=== PATIENT | female | born 1930 | race Caucasian/White ===

== ENCOUNTER 2017-01-10 01:46 | Emergency (ER) | payer OTHER, MEDICAID ==
[2017-01-10] MEDS ORDERED: Lactated Ringers 1,000 ML IV ONE ×2 (02:20→03:53)
[2017-01-10] MEDS ORDERED: Ondansetron 4 MG/2 ML SDV IVPUSH ONE (02:20)
--- NOTE | 2017-01-10 02:39 | EDM.PDOC ---
ED HPI GI/ABDOMINAL - General Chief Complaint: Gastrointestinal Problem Stated Complaint: VOMITING DIARRHEA Time Seen by Provider: 01/10/17 02:10 Source of Information: Reports: Patient History Limitations: Reports: No limitations - History of Present Illness INITIAL COMMENTS - FREE TEXT/NARRATIVE: This is an 86-year-old female. Onset yesterday morning with nausea vomiting and diarrhea. She says she not able to keep much fluids down and she has not been eating. Her daughter came to stay with her apparently she had 4 episodes of vomiting since about 6 PM and several episodes of diarrhea. The patient is insulin-dependent diabetic and this evening her blood sugar around 70 so her daughter gave her some crackers and some juice that she was able to keep down to bring her blood sugar back up. The patient has no history of eating any bad food no particular salads though she has had some eggs but they seem to be okay. She has not been around anyone who has been having nausea vomiting or diarrhea. The patient can only add to this history at this time. No fevers been noted no sore throat no ear pain no cough or congestion. - Related Data Allergies/ADRs: Allergies Allergy/AdvReac Type Severity Reaction Status Date / Time atorvastatin Allergy Cannot Verified 01/10/17 01:58 Remember Home Meds: Home Meds Acetaminophen [Tylenol Extra Strength] 1,000 mg PO BID 07/27/14 [History] Clopidogrel Bisulfate [Clopidogrel] 75 mg PO DAILY 07/27/14 [History] Diflunisal 500 mg PO TID 07/27/14 [History] Docusate Sodium [Doc-Q-Lace] 100 mg PO DAILY 07/27/14 [History] Donepezil [Aricept] 10 mg PO DAILY 07/27/14 [History] Furosemide 60 mg PO DAILY 07/27/14 [History] Gabapentin 300 mg PO TID 07/27/14 [History] Insulin Aspart [Novolog Flexpen] 3 dose SQ TIDMEALS PRN 07/27/14 [History] Isosorbide Mononitrate [Imdur] 60 mg PO DAILY 07/27/14 [History] Lisinopril [Prinivil] 20 mg PO DAILY 07/27/14 [History] Pantoprazole [ProTONIX] 40 mg PO DAILY 07/27/14 [History] Potassium Chloride [Klor-Con 10] 10 meq PO BID 07/27/14 [History] Primidone 100 mg PO TID 07/27/14 [History] Simvastatin 40 mg PO BEDTIME 07/27/14 [History] Aspirin [Adult Low Dose Aspirin EC] 81 mg PO Q2D 03/26/15 [History] Calcium Carbonate 600 mg PO BID 03/26/15 [History] Insulin Detemir [Levemir] 28 unit SUBCUT BID 01/10/17 [History] Ondansetron [Zofran ODT] 4 mg PO Q6H PRN #15 tab.dis 01/10/17 [Rx] Past Medical History HEENT History: Reports: Impaired vision Other HEENT History: wears eyeglasses Cardiovascular History: Reports: High cholesterol, Hypertension Respiratory History: Reports: Bronchitis, recurrent Gastrointestinal History: Reports: Hiatal hernia Genitourinary History: Reports: UTI, recurrent 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: Musculoskeletal History: Reports: Arthritis, Osteoporosis Neurological History: Reports: CVA, Head trauma Endocrine/Metabolic History: Reports: Diabetes, type II, IDDM - Infectious Disease History Infectious Disease History: Reports: Chicken pox, Measles, Mumps, Shingles - Past Surgical History HEENT Surgical History: Reports: Cataract surgery Cardiovascular Surgical History: Reports: Coronary artery bypass, Other (see below) Other Cardiovascular Surgeries/Procedures: multiple angioplasties GI Surgical History: Reports: Appendectomy Female Surgical History: Reports: Hysterectomy Social & Family History - Family History Family Medical History: Unobtainable - Tobacco Use Smoking Status *Q: Never Smoker Second Hand Smoke Exposure: No - Caffeine Use Caffeine Use: Reports: Coffee - Alcohol Use Days Per Week of Alcohol Use: 0 Number of Drinks Per Day: 0 Total Drinks Per Week: 0 - Recreational Drug Use Recreational Drug Use: No Drug Use in Last 12 Months: No ED ROS GENERAL - Review of Systems Review Of Systems: See Below Constitutional: Reports: weakness. Denies: fever, chills HEENT: Reports: No symptoms Respiratory: Denies: Shortness of Breath, Cough Cardiovascular: Reports: No symptoms Endocrine: Reports: no symptoms GI/Abdominal: Reports: Diarrhea, Nausea, Vomiting. Denies: Abdominal pain : Denies: dysuria, frequency Musculoskeletal: Reports: no symptoms Skin: Reports: no symptoms Neurological: Reports: No Symptoms Psychiatric: Reports: No symptoms Hematologic/Lymphatic: Reports: no symptoms ED EXAM, GI/ABD - Physical Exam Exam: See Below Exam Limited By: No limitations General Appearance: alert, WD/WN, no apparent distress Eyes: bilateral: normal appearance Ears: normal external exam, normal canal, normal TMs Nose: normal inspection Throat/Mouth: Normal lips, Normal oropharynx, Normal voice, No airway compromise , Other (Moist mucous membranes) Head: normocephalic Neck: supple Respiratory/Chest: no respiratory distress, lungs clear, normal breath sounds Cardiovascular: regular rate, rhythm, no murmur GI/Abdominal: normal bowel sounds, soft, tenderness. No: distention, guarding, rebound, rigidity, McBurney's sign, Willingham's sign Back Exam: full range of motion Extremities: normal inspection, normal range of motion Neurological: alert, oriented Psychiatric: normal affect, normal mood Skin Exam: Warm, Dry Course - Vital Signs Last Recorded V/S: Last Vital Signs Temp 98.7 F 01/10/17 01:55 Pulse 75 01/10/17 01:55 Resp 17 01/10/17 01:55 BP 159/48 H 01/10/17 01:55 Pulse Ox 95 01/10/17 01:55 - Orders/Labs/Meds Labs: Laboratory Tests 01/10/17 01/10/17 01/10/17 Range/Units 01:55 01:55 02:02 WBC 11.53 H (3.98-10.04) K/mm3 RBC 4.28 (3.98-5.22) M/mm3 Hgb 13.8 (11.2-15.7) gm/L Hct 42.4 (34.1-44.9) % MCV 99.1 H (79.4-94.8) fl MCH 32.2 (25.6-32.2) pg MCHC 32.5 (32.2-35.5) g/dl RDW Std Deviation 53.1 H (36.4-46.3) fL Plt Count 216 (182-369) K/mm3 MPV 12.5 H (9.4-12.3) fl Neut % (Auto) 79.2 H (34.0-71.1) % Lymph % (Auto) 8.7 L (19.3-51.7) % [place] % (Auto) 11.4 (4.7-12.5) % Eos % (Auto) 0.3 L (0.7-5.8) Baso % (Auto) 0.3 (0.1-1.2) % Neut # (Auto) 9.14 H (1.56-6.13) K/mm3 Lymph # (Auto) 1.00 L (1.18-3.74) K/mm3 [place] # (Auto) 1.31 H (0.24-0.36) K/mm3 Eos # (Auto) 0.03 L (0.04-0.36) K/mm3 Baso # (Auto) 0.04 (0.01-0.08) K/mm3 Manual Slide Review Normal smear Sodium 140 (136-145) mEq/L Potassium 4.2 (3.5-5.1) mEq/L Chloride 103 (98-107) mEq/L Carbon Dioxide 23 (21-32) mEq/L Anion Gap 18.2 H (5-15) BUN 45 H (7-18) mg/dL Creatinine 1.8 H (0.55-1.02) mg/dL Est Cr Clr Drug Dosing TNP Estimated GFR (MDRD) 27 (>60) mL/min BUN/Creatinine Ratio 25.0 H (14-18) Glucose 111 (83-115) mg/dL POC Glucose 116 H (83-110) mg/dL Calcium 9.0 (8.5-10.1) mg/dL Total Bilirubin 0.3 (0.2-1.0) mg/dL AST 33 (15-37) U/L ALT 21 (14-59) U/L Alkaline Phosphatase 175 H (46-116) U/L Total Protein 7.9 (6.4-8.2) g/dl Albumin 3.4 (3.4-5.0) g/dl Globulin 4.5 gm/dL Albumin/Globulin Ratio 0.8 L (1-2) Meds: Medications Discontinued Medications Generic Name Dose Route Start Last Admin Trade Name Freq PRN Reason Stop Dose Admin Lactated Ringer's 1,000 mls @ 999 mls/hr 01/10/17 02:20 01/10/17 02:28 Ringers, Lactated IV 01/10/17 03:20 999 mls/hr .BOLUS ONE Administration Lactated Ringer's 1,000 mls @ 999 mls/hr 01/10/17 03:53 01/10/17 04:01 Ringers, Lactated IV 01/10/17 04:53 999 mls/hr .BOLUS ONE Administration Ondansetron HCl 4 mg 01/10/17 02:20 01/10/17 02:28 Zofran IVPUSH 01/10/17 02:21 4 mg ONETIME ONE Administration - Re-Assessments/Exams Free Text/Narrative Re-Assessment/Exam: 01/10/17 05:05 She is feeling much better after 2 L of fluids and she sleeping peacefully. She was not able to give us a stool sample in the ER. Spoke to her daughter about lots of fluids and a bland diet taking probiotics will give her a prescription for some Zofran. Departure - Departure Time of Disposition: 05:05 Disposition: Home, Self-Care 01 Condition: good Clinical Impression: Abdominal discomfort, Dehydration, Renal insufficiency Nausea & vomiting Qualifiers: Vomiting type: unspecified Vomiting Intractability: non-intractable Qualified Code(s): R11.2 - Nausea with vomiting, unspecified Diarrhea Qualifiers: Diarrhea type: unspecified type Qualified Code(s): R19.7 - Diarrhea, unspecified Prescriptions: Ondansetron [Zofran ODT] 4 mg PO Q6H PRN #15 tab.dis PRN Reason: Nausea Referrals: Stewart Blevins MD [Primary Care Provider] - Forms: ED Department Discharge Additional Instructions: Watch her blood sugars really carefully since she is not eating she needs to cut back on the amount of insulin that she is using otherwise her blood sugar will drop, stay on liquids only for the next 24 hours with no caffeine, did probiotics just [id number] take one capsule 3 times a day and consider getting some yogurt with active cultures as well and eat that 3 times a day, on Wednesday she needs to be on a bland diet like crackers bananas things very easy to digest, she should have no vegetables and no meats for at least 3-4 days, followup with her family doctor this week for recheck, return to the ER if her symptoms worsen
[2017-01-10 10:12] VITALS: BP 159/48
== END 2017-01-10 05:30 | disposition home or self-care (01) ==
LOC: JD.ED 01:46
DX: N28.9 Disorder of kidney and ureter, unspecified (principal); E86.0 Dehydration; R10.9 Unspecified abdominal pain; I10 Essential (primary) hypertension; E78.00 Pure hypercholesterolemia, unspecified; E11.9 Type 2 diabetes mellitus without complications; Z88.8 Allergy status to other drugs, medicaments and biological substances; Z79.899 Other long term (current) drug therapy; Z90.710 Acquired absence of both cervix and uterus
CPT/HCPCS: 36415; 80053; 82962; 85025; 96361; 96374; 99284; J2405; J7120

== ENCOUNTER 2017-08-11 15:23 | Inpatient (IN) | payer OTHER ==
[2017-08-11] MEDS ORDERED: Sodium Chloride 0.9% 10 ML Syringe FLUSH PRN (15:42)
[2017-08-11] MEDS ORDERED: Sodium Chloride 0.9% 1,000 ML IV STA (15:42)
--- NOTE | 2017-08-11 16:13 | CT ---
Head CT Technique: Multiple axial sections through the brain were obtained. Intravenous contrast was not utilized. Comparison: Prior head CT exam of 01/14/16. Findings: Old infarct is noted within the left posterior frontal and temporal regions. Smaller infarct is noted within the posterior right frontal region. Diminished density is noted within the periventricular and subcortical white matter which is compatible with small vessel ischemic demyelination change. Additional old infarct is seen within the inferior left temporal region. Old lacunar infarct is noted within the right cerebellar hemisphere. No evidence of intracranial hemorrhage. No midline shift or mass effect is seen. Basal ganglia calcification is noted. Atherosclerotic calcification is seen within the vertebral vessels. Visualized sinuses are clear. No acute calvarial abnormality is seen. Impression: 1. Old infarcts as described above. Generalized atrophy and other senescent change. 2. Nothing acute is definitely appreciated on noncontrast head CT exam. Diagnostic code #3
[2017-08-11] MEDS ORDERED: Levofloxacin/Dextrose 5%-Water 500 MG in Premix Bag 1 BAG IV ONE (17:32)
--- NOTE | 2017-08-11 19:45 | EDM.PDOC ---
ED HPI GENERAL MEDICAL PROBLEM - General Chief Complaint: General Stated Complaint: [facility] Time Seen by Provider: 08/11/17 15:34 Source of Information: Reports: Patient, Family, Snf Records History Limitations: Reports: Altered Mental Status - History of Present Illness INITIAL COMMENTS - FREE TEXT/NARRATIVE: The patient has had altered mental status for about 1 week. She had some lab work done at the clinic and her creatinine was elevated. They sent her here for further work up. She denies fever, chills, cough, congestion, chest pain, shortness of breath, abdominal pain, nausea or vomiting. She has no dysuria. She does admit to being very tired lately. She is on a new medication for memory that is a patch. PACE thought that may be to much. Onset: Gradual Duration: Week(s): (1) Severity: Moderate Improves with: Reports: None Worsens with: Reports: None Associated Symptoms: Reports: Confusion. Denies: Chest Pain, Cough, Fever/ Chills, Headaches, Nausea/Vomiting, Seizure, Shortness of Breath - Related Data Allergies Allergy/AdvReac Type Severity Reaction Status Date / Time atorvastatin Allergy Cannot Verified 08/11/17 19:15 Remember propranolol Allergy Cannot Verified 08/11/17 16:30 Remember topiramate [From Topamax] Allergy Cannot Verified 08/11/17 16:30 Remember Home Meds: Home Meds Acetaminophen 1,000 mg PO BID 08/11/17 [History] Aspirin [[place] Aspirin] 81 mg PO DAILY 08/11/17 [History] Ca Carbonate/Vitamin D3/Vit K [Calcium + D Soft Chewable Tab] 1 tab PO BID 08/11 [History] Clopidogrel [Plavix] 75 mg PO DAILY 08/11/17 [History] Diflunisal 500 mg PO TID 08/11/17 [History] Docusate Sodium [Colace] 100 mg PO QPM 08/11/17 [History] Furosemide 20 mg PO QAM 08/11/17 [History] Furosemide 40 mg PO QAM 08/11/17 [History] Gabapentin [Neurontin] 300 mg PO TID 08/11/17 [History] Insulin Aspart [Novolog Flexpen] 4 - 10 units SUBCUT TID 08/11/17 [History] Insulin Aspart [Novolog Flexpen] 5 units SUBCUT TID 08/11/17 [History] Insulin Detemir [Levemir Flextouch] 14 units SUBCUT QPM 08/11/17 [History] Insulin Detemir [Levemir Flextouch] 26 units SUBCUT QAM 08/11/17 [History] Isosorbide Mononitrate [Imdur] 60 mg PO DAILY 08/11/17 [History] Lisinopril 20 mg PO DAILY 08/11/17 [History] Menthol [Zim's Max-Freeze] 1 applic TOP BID PRN 08/11/17 [History] Ondansetron [Zofran ODT] 4 mg PO Q6H PRN 08/11/17 [History] Pantoprazole [ProTONIX] 40 mg PO QAM 08/11/17 [History] Potassium Chloride 10 meq PO BID 08/11/17 [History] Primidone [Mysoline] 100 mg PO TID 08/11/17 [History] Rivastigmine [Exelon] 1 patch TRDERM DAILY 08/11/17 [History] Sennosides/Docusate Sodium [Senna-S] 2 tab PO BID PRN 08/11/17 [History] Simvastatin [Zocor] 40 mg PO QPM 08/11/17 [History] Past Medical History HEENT History: Reports: Impaired Vision Other HEENT History: wears eyeglasses Cardiovascular History: Reports: High Cholesterol, Hypertension Respiratory History: Reports: Bronchitis, Recurrent Gastrointestinal History: Reports: Hiatal Hernia Genitourinary History: Reports: UTI, Recurrent 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: Musculoskeletal History: Reports: Arthritis, Osteoporosis Neurological History: Reports: CVA, Head Trauma Endocrine/Metabolic History: Reports: Diabetes, Type II, IDDM - Infectious Disease History Infectious Disease History: Reports: Chicken Pox, Measles, Mumps, Shingles - Past Surgical History HEENT Surgical History: Reports: Cataract Surgery Cardiovascular Surgical History: Reports: Coronary Artery Bypass, Other (See Below) Social & Family History - Family History Family Medical History: Unobtainable - Tobacco Use Smoking Status *Q: Unknown Ever Smoked Second Hand Smoke Exposure: No - Caffeine Use Caffeine Use: Reports: Coffee - Alcohol Use Days Per Week of Alcohol Use: 0 Number of Drinks Per Day: 0 Total Drinks Per Week: 0 - Recreational Drug Use Recreational Drug Use: No Drug Use in Last 12 Months: No ED ROS GENERAL - Review of Systems Review Of Systems: See Below Constitutional: Reports: Malaise, Weakness, Fatigue. Denies: Fever, Chills HEENT: Reports: No Symptoms Respiratory: Reports: No Symptoms Cardiovascular: Reports: No Symptoms Endocrine: Reports: No Symptoms GI/Abdominal: Reports: No Symptoms : Reports: No Symptoms Musculoskeletal: Reports: No Symptoms Skin: Reports: No Symptoms Neurological: Reports: Confusion ED EXAM, GENERAL - Physical Exam Exam: See Below Exam Limited By: No Limitations General Appearance: Other (Sleepy but she will respond to my questions) Ears: Normal External Exam Nose: Normal Inspection Head: Atraumatic, Normocephalic Neck: Normal Inspection Respiratory/Chest: No Respiratory Distress, Lungs Clear, Normal Breath Sounds Cardiovascular: Regular Rate, Rhythm, No Edema, No Murmur GI/Abdominal: Soft, Non-Tender, No Organomegaly, No Mass Back Exam: Normal Inspection Extremities: Normal Inspection Neurological: Alert, Oriented, No Motor/Sensory Deficits Skin Exam: Warm, Dry EKG INTERPRETATION EKG Date: 08/11/17 Time: 15:58 Rhythm: NSR Rate (Beats/Min): 72 [place]: Normal P-Wave: Present QRS: Normal ST-T: Normal QT: Normal Course - Vital Signs Last Recorded V/S: Last Vital Signs Temp 98.1 F 08/11/17 15:33 Pulse 71 08/11/17 15:33 Resp 20 08/11/17 15:33 BP 116/39 L 08/11/17 15:33 Pulse Ox 95 08/11/17 15:33 - Orders/Labs/Meds Orders: Active Orders 24 hr Category Date Time Status EKG Documentation Completion [RC] ASDIRECTED Care 08/11/17 15:44 Active Peripheral IV Care [RC] . DIRECTED Care 08/11/17 15:43 Active CULTURE BLOOD [BC] Stat Lab 08/11/17 18:06 Received CULTURE BLOOD [BC] Stat Lab 08/11/17 18:36 Received CULTURE URINE [RM] Stat Lab 08/11/17 16:20 Received Sodium Chloride 0.9% [Saline Flush] Med 08/11/17 15:42 Active 10 ml FLUSH ASDIRECTED PRN Blood Culture x2 Reflex Set [OM.PC] Stat Oth 08/11/17 17:31 Ordered Peripheral IV Insertion Adult [OM.PC] Stat Oth 08/11/17 15:42 Ordered EKG 12 Lead [EK] Stat Ther 08/11/17 15:44 Ordered Medication Orders Sodium Chloride (Saline Flush) 10 ml FLUSH ASDIRECTED PRN PRN Reason: Keep Vein Open Last Admin: 08/11/17 15:59 Dose: 10 ml Labs: Laboratory Tests 08/11/17 08/11/17 08/11/17 Range/Units 15:45 15:45 16:20 WBC 19.91 H (3.98-10.04) K/mm3 RBC 3.55 L (3.98-5.22) M/mm3 Hgb 11.9 (11.2-15.7) gm/L Hct 36.7 (34.1-44.9) % MCV 103.4 H (79.4-94.8) fl MCH 33.5 H (25.6-32.2) pg MCHC 32.4 (32.2-35.5) g/dl RDW Std Deviation 51.4 H (36.4-46.3) fL Plt Count 330 (182-369) K/mm3 MPV 12.8 H (9.4-12.3) fl Neut % (Auto) 74.4 H (34.0-71.1) % Lymph % (Auto) 14.8 L (19.3-51.7) % [place] % (Auto) 9.7 (4.7-12.5) % Eos % (Auto) 0.5 L (0.7-5.8) Baso % (Auto) 0.2 (0.1-1.2) % Neut # (Auto) 14.80 H (1.56-6.13) K/mm3 Lymph # (Auto) 2.95 (1.18-3.74) K/mm3 [place] # (Auto) 1.94 H (0.24-0.36) K/mm3 Eos # (Auto) 0.10 (0.04-0.36) K/mm3 Baso # (Auto) 0.04 (0.01-0.08) K/mm3 Manual Slide Review Normal smear Sodium 140 (136-145) mEq/L Potassium 5.0 (3.5-5.1) mEq/L Chloride 103 (98-107) mEq/L Carbon Dioxide 25 (21-32) mEq/L Anion Gap 17.0 H (5-15) BUN 77 H (7-18) mg/dL Creatinine 2.7 H (0.55-1.02) mg/dL Est Cr Clr Drug Dosing 11.61 mL/min Estimated GFR (MDRD) 17 (>60) mL/min BUN/Creatinine Ratio 28.5 H (14-18) Glucose 195 H (83-115) mg/dL Lactic Acid (0.4-2.0) mmol/L Calcium 8.3 L (8.5-10.1) mg/dL Total Bilirubin 0.2 (0.2-1.0) mg/dL AST 22 (15-37) U/L ALT 19 (14-59) U/L Alkaline Phosphatase 72 (46-116) U/L Troponin I < 0.017 (0.00-0.056) ng/mL Total Protein 7.7 (6.4-8.2) g/dl Albumin 2.2 L (3.4-5.0) g/dl Globulin 5.5 gm/dL Albumin/Globulin Ratio 0.4 L (1-2) Urine Color Yellow (Yellow) Urine Appearance Clear (Clear) Urine pH 5.5 (5.0-8.0) Ur Specific [place] 1.015 (1.005-1.030) Urine Protein 1+ H (Negative) Urine Glucose (UA) Negative (Negative) Urine Ketones Negative (Negative) Urine Occult Blood 2+ H (Negative) Urine Nitrite Positive H (Negative) Urine Bilirubin Negative (Negative) Urine Urobilinogen 0.2 (0.2-1.0) Ur Leukocyte Esterase 2+ H (Negative) Urine RBC 0-5 (0-5) /hpf Urine WBC 40-50 H (0-5) /hpf Urine WBC Clumps Few (NOT SEEN) /hpf Ur Epithelial Cells 0-5 (0-5) /hpf Urine Bacteria Many H (FEW) /hpf Hyaline Casts 0-5 (0-5) /lpf Urine Mucus Not seen (FEW) /hpf 08/11/17 Range/Units 18:06 WBC (3.98-10.04) K/mm3 RBC (3.98-5.22) M/mm3 Hgb (11.2-15.7) gm/L Hct (34.1-44.9) % MCV (79.4-94.8) fl MCH (25.6-32.2) pg MCHC (32.2-35.5) g/dl RDW Std Deviation (36.4-46.3) fL Plt Count (182-369) K/mm3 MPV (9.4-12.3) fl Neut % (Auto) (34.0-71.1) % Lymph % (Auto) (19.3-51.7) % [place] % (Auto) (4.7-12.5) % Eos % (Auto) (0.7-5.8) Baso % (Auto) (0.1-1.2) % Neut # (Auto) (1.56-6.13) K/mm3 Lymph # (Auto) (1.18-3.74) K/mm3 [place] # (Auto) (0.24-0.36) K/mm3 Eos # (Auto) (0.04-0.36) K/mm3 Baso # (Auto) (0.01-0.08) K/mm3 Manual Slide Review Sodium (136-145) mEq/L Potassium (3.5-5.1) mEq/L Chloride (98-107) mEq/L Carbon Dioxide (21-32) mEq/L Anion Gap (5-15) BUN (7-18) mg/dL Creatinine (0.55-1.02) mg/dL Est Cr Clr Drug Dosing mL/min Estimated GFR (MDRD) (>60) mL/min BUN/Creatinine Ratio (14-18) Glucose (83-115) mg/dL Lactic Acid 1.4 (0.4-2.0) mmol/L Calcium (8.5-10.1) mg/dL Total Bilirubin (0.2-1.0) mg/dL AST (15-37) U/L ALT (14-59) U/L Alkaline Phosphatase (46-116) U/L Troponin I (0.00-0.056) ng/mL Total Protein (6.4-8.2) g/dl Albumin (3.4-5.0) g/dl Globulin gm/dL Albumin/Globulin Ratio (1-2) Urine Color (Yellow) Urine Appearance (Clear) Urine pH (5.0-8.0) Ur Specific [place] (1.005-1.030) Urine Protein (Negative) Urine Glucose (UA) (Negative) Urine Ketones (Negative) Urine Occult Blood (Negative) Urine Nitrite (Negative) Urine Bilirubin (Negative) Urine Urobilinogen (0.2-1.0) Ur Leukocyte Esterase (Negative) Urine RBC (0-5) /hpf Urine WBC (0-5) /hpf Urine WBC Clumps (NOT SEEN) /hpf Ur Epithelial Cells (0-5) /hpf Urine Bacteria (FEW) /hpf Hyaline Casts (0-5) /lpf Urine Mucus (FEW) /hpf Meds: Medications Generic Name Dose Route Start Last Admin Trade Name Freq PRN Reason Stop Dose Admin Sodium Chloride 10 ml 08/11/17 15:42 08/11/17 15:59 Saline Flush FLUSH 10 ml ASDIRECTED PRN Administration Keep Vein Open Discontinued Medications Generic Name Dose Route Start Last Admin Trade Name Freq PRN Reason Stop Dose Admin Sodium Chloride 1,000 mls @ 1,000 mls/hr 08/11/17 15:42 08/11/17 15:58 Normal Saline IV 08/11/17 16:41 1,000 mls/hr .BOLUS STA Administration Levofloxacin/Dextrose 500 mg/ 100 mls @ 100 mls/hr 08/11/17 17:32 08/11/17 18 :14 Premix IV 08/11/17 18:31 100 mls/hr ONETIME ONE Administration Sodium Chloride 1,600 mls @ 1,000 mls/hr 08/11/17 17:32 08/11/17 17:36 Normal Saline IV 08/11/17 19:07 1,000 mls/hr ONETIME ONE Administration - Re-Assessments/Exams Free Text/Narrative Re-Assessment/Exam: 08/11/17 19:41 I ordered an IV NS 500mL bolus, labs, CT of her head, UA and EKG. Her EKG shows NSR with no acute changes. The CT of her head shows old infarcts. Generalized atrophy and other senescent change. Nothing acute is definitely appreciated on noncontrast head CT. Her WBC was elevated at 19.91. Her creatinine was elevated at 2.7. Her baseline from old records looks like 1.5 to 1.7. Her BUN was 77 and GFR was low at 17. Her glucose was elevated at 195. Her lactic acid was 1.4 and normal. Her troponin is negative. Her UA shows a UTI. I ordered a urine culture and blood cultures. She is septic from the UTI. I ordered an aditional 1,600mls to bring her over 30mLs per KG for a bolus. I feel she needs to be admitted. I called Dr Mckeon and she agreed to the admission. Departure - Departure Time of Disposition: 19:45 Disposition: Admitted As Inpatient 65 Condition: Serious Clinical Impression: Renal insufficiency, Dehydration UTI (urinary tract infection) Qualifiers: Urinary tract infection type: acute cystitis Hematuria presence: without hematuria Qualified Code(s): N30.00 - Acute cystitis without hematuria Sepsis Qualifiers: Sepsis type: sepsis due to unspecified organism Qualified Code(s): A41.9 - Sepsis, unspecified organism Altered mental status Qualifiers: Altered mental status type: somnolence Qualified Code(s): R40.0 - Somnolence - Discharge Information - My Orders Last 24 Hours: My Active Orders 08/11/17 15:42 Sodium Chloride 0.9% [Saline Flush] 10 ml FLUSH ASDIRECTED PRN Peripheral IV Insertion Adult [OM.PC] Stat 08/11/17 15:43 Peripheral IV Care [RC] . DIRECTED 08/11/17 15:44 EKG Documentation Completion [RC] ASDIRECTED EKG 12 Lead [EK] Stat 08/11/17 16:20 CULTURE URINE [RM] Stat 08/11/17 17:31 Blood Culture x2 Reflex Set [OM.PC] Stat 08/11/17 18:06 CULTURE BLOOD [BC] Stat 08/11/17 18:36 CULTURE BLOOD [BC] Stat - Assessment/Plan Last 24 Hours: My Active Orders 08/11/17 15:42 Sodium Chloride 0.9% [Saline Flush] 10 ml FLUSH ASDIRECTED PRN Peripheral IV Insertion Adult [OM.PC] Stat 08/11/17 15:43 Peripheral IV Care [RC] . DIRECTED 08/11/17 15:44 EKG Documentation Completion [RC] ASDIRECTED EKG 12 Lead [EK] Stat 08/11/17 16:20 CULTURE URINE [RM] Stat 08/11/17 17:31 Blood Culture x2 Reflex Set [OM.PC] Stat 08/11/17 18:06 CULTURE BLOOD [BC] Stat 08/11/17 18:36 CULTURE BLOOD [BC] Stat
[2017-08-11] MEDS ORDERED: Ondansetron 4 MG Tab.DIS PO PRN (21:22)
[2017-08-11] MEDS ORDERED: Ondansetron 4 MG/2 ML SDV IV PRN (21:22)
[2017-08-11] MEDS ORDERED: Acetaminophen 325 MG Tab PO PRN (21:22)
[2017-08-11] MEDS ORDERED: Docusate Sodium 100 MG Cap PO PRN (21:22)
[2017-08-11] MEDS ORDERED: Bisacodyl 5 MG Tab PO PRN (21:22)
[2017-08-11] MEDS ORDERED: 50% Dextrose in Water 50 ML Syringe IVPUSH PRN (21:34)
--- NOTE | 2017-08-11 21:44 | PCM.HP ---
<Sim Hartman - Last Filed: 08/11/17 22:05> H&P History of Present Illness - General Date of Service: 08/11/17 Admit Problem/Dx: Admission Diagnosis/Problem Admission Diagnosis/Problem Sepsis Source of Information: Patient, Old Records, Provider, RN, RN Notes Reviewed History Limitations: Reports: No Limitations - History of Present Illness Initial Comments - Free Text/Narative: Roma Aviles is an 86 yo female who presented to our ED today with complaints of an altered mental status for about one week. Lab work was performed in the clinic and her creatinine was found to be elevated. A 2 to us for further workup. She denies fever, chills, cough, congestion, chest pain, shortness of breath, without pain, nausea, or vomiting. She has no dysuria. She admits to being very tired lately. She is on a new medication patch for memory. Her home services [facility] quality control representative thought that maybe too much of a dose. On presentation to the ED she was afebrile at 98.1. Pulse was 71. Respirations 20. Blood pressure 116/39. Pulse ox 95%. IV of 500 mils NS bolus was given. EKG was performed and interpreted by the ED provider as NSR with no acute changes. Labs were obtained: W CBC elevated at 19.91. Hemoglobin 11.9. Hematocrit 36.7. She is macrocytic. Platelets normal at 330, 000. Neutrophils elevated at 74.4%. Sodium 140. Potassium 5.0. Chloride 103. Carbon dioxide 25. Anion gap is quite high at 17. BUN is very high at 77. Creatinine is high at 2.7. EGFR 17. Glucose is high at 195. Lactic acid is 1.4. Calcium is low at 8.3. Bilirubin 0.2. Liver enzymes are good with AST at 22, ALT at 19, and alkaline phosphatase at 72. Troponin is negative at less than 0.017. Total protein 7.7. Albumin is low at 2.2. UA shows 1+ protein, 2+ occult blood, positive urine nitrite, 2+ leukocyte esterase, 40-50 WBCs, and many urine bacteria. Urine culture and blood culture pending. Head CT was obtained and interpreted by Dr. De Luna as old infarcts as described above. Generalized atrophy and other senescent changes. Nothing acute is definitely appreciated on noncontrast head CT exam. The ED provider did look old records and determine her creatinine baseline is 1.5-1.7. She carries a history of impaired vision, HLD, HTN, recurrent bronchitis, recurrent UTI, osteoporosis, arthritis, CVA,2 DM on long-term insulin. She is also reported to have had a coronary artery bypass. CODE STATUS is DNR/DNI. Her primary care provider is Dr. Blevins at [facility] in [place]. - Related Data Allergies/Adverse Reactions: Allergies Allergy/AdvReac Type Severity Reaction Status Date / Time atorvastatin Allergy Cannot Verified 08/11/17 19:15 Remember propranolol Allergy Cannot Verified 08/11/17 16:30 Remember topiramate [From Topamax] Allergy Cannot Verified 08/11/17 16:30 Remember Home Medications: Home Meds Acetaminophen 1,000 mg PO BID 08/11/17 [History] Aspirin [Garrett Aspirin] 81 mg PO DAILY 08/11/17 [History] Ca Carbonate/Vitamin D3/Vit K [Calcium + D Soft Chewable Tab] 1 tab PO BID 08/11 [History] Clopidogrel [Plavix] 75 mg PO DAILY 08/11/17 [History] Diflunisal 500 mg PO TID 08/11/17 [History] Docusate Sodium [Colace] 100 mg PO QPM 08/11/17 [History] Furosemide 20 mg PO QAM 08/11/17 [History] Furosemide 40 mg PO QAM 08/11/17 [History] Gabapentin [Neurontin] 300 mg PO TID 08/11/17 [History] Insulin Aspart [Novolog Flexpen] 4 - 10 units SUBCUT TID 08/11/17 [History] Insulin Aspart [Novolog Flexpen] 5 units SUBCUT TID 08/11/17 [History] Insulin Detemir [Levemir Flextouch] 14 units SUBCUT QPM 08/11/17 [History] Insulin Detemir [Levemir Flextouch] 26 units SUBCUT QAM 08/11/17 [History] Isosorbide Mononitrate [Imdur] 60 mg PO DAILY 08/11/17 [History] Lisinopril 20 mg PO DAILY 08/11/17 [History] Menthol [Zim's Max-Freeze] 1 applic TOP BID PRN 08/11/17 [History] Ondansetron [Zofran ODT] 4 mg PO Q6H PRN 08/11/17 [History] Pantoprazole [ProTONIX] 40 mg PO QAM 08/11/17 [History] Potassium Chloride 10 meq PO BID 08/11/17 [History] Primidone [Mysoline] 100 mg PO TID 08/11/17 [History] Rivastigmine [Exelon] 1 patch TRDERM DAILY 08/11/17 [History] Sennosides/Docusate Sodium [Senna-S] 2 tab PO BID PRN 08/11/17 [History] Simvastatin [Zocor] 40 mg PO QPM 08/11/17 [History] Past Medical History HEENT History: Reports: Impaired Vision Other HEENT History: wears eyeglasses Cardiovascular History: Reports: High Cholesterol, Hypertension Respiratory History: Reports: Bronchitis, Recurrent Gastrointestinal History: Reports: Hiatal Hernia Genitourinary History: Reports: UTI, 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: Musculoskeletal History: Reports: Arthritis, Osteoporosis Neurological History: Reports: CVA, Head Trauma Endocrine/Metabolic History: Reports: Diabetes, Type II, IDDM - Infectious Disease History Infectious Disease History: Reports: Chicken Pox, Measles, Mumps, Shingles - Past Surgical History HEENT Surgical History: Reports: Cataract Surgery Cardiovascular Surgical History: Reports: Coronary Artery Bypass, Other (See Below) Social & Family History - Family History Family Medical History: Unobtainable - Tobacco Use Smoking Status *Q: Unknown Ever Smoked Second Hand Smoke Exposure: No - Caffeine Use Caffeine Use: Reports: Coffee - Alcohol Use Days Per Week of Alcohol Use: 0 Number of Drinks Per Day: 0 Total Drinks Per Week: 0 - Recreational Drug Use Recreational Drug Use: No Drug Use in Last 12 Months: No H&P Review of Systems - Review of Systems: Review Of Systems: See Below General: Reports: No Symptoms, Malaise, Weakness, Fatigue. Denies: Fever, Chills, Night Sweats, Diaphoresis, Decreased Appetite HEENT: Reports: No Symptoms. Denies: Ear Pain, Eye Pain, Headaches, Sore Throat Pulmonary: Reports: No Symptoms. Denies: Shortness of Breath, Wheezing, Pleuritic Chest Pain, Cough, Sputum Cardiovascular: Reports: No Symptoms. Denies: Chest Pain, Palpitations, Dyspnea on Exertion, Lightheadedness Gastrointestinal: Reports: No Symptoms. Denies: Abdominal Pain, Constipation, Diarrhea, Nausea, Vomiting Genitourinary: Reports: No Symptoms. Denies: Dysuria, Frequency, Burning, Pain , Urgency Musculoskeletal: Reports: No Symptoms Skin: Reports: No Symptoms Psychiatric: Reports: Confusion Neurological: Reports: Confusion, Weakness. Denies: No Symptoms, Dizziness, Headache, Numbness, Tingling Hematologic/Lymphatic: Reports: No Symptoms Immunologic: Reports: No Symptoms Exam - Exam Exam: See Below - Vital Signs Vital Signs: Last Vital Signs Temp 99.1 F 08/11/17 20:36 Pulse 82 08/11/17 20:36 Resp 20 08/11/17 15:33 BP 121/79 08/11/17 20:36 Pulse Ox 96 08/11/17 20:36 Weight: 68.039 kg - Exam Quality Assessment: DVT Prophylaxis General: Alert, Cooperative, Other (mild confusion). No: Mild Distress HEENT: Conjunctiva Clear, EACs Clear, EOMI, Hearing Intact, Mucosa Moist & [place] , Nares Patent, Normal Nasal Septum, Posterior Pharynx Clear, PERRLA Neck: Supple, Trachea Midline. No: JVD, Thyromegaly Lungs: Clear to Auscultation, Normal Respiratory Effort Cardiovascular: Regular Rate, Regular Rhythm GI/Abdominal Exam: Normal Bowel Sounds, Soft, Non-Tender, No Organomegaly, No Distention, No Abnormal Bruit, No Mass, Pelvis Stable (Female) Exam: Deferred Rectal (Female) Exam: Deferred Back Exam: Normal Inspection, Decreased Range of Motion Extremities: Normal Inspection, Normal Range of Motion, Non-Tender, No Pedal Edema, Normal Capillary Refill, Other (Cast in place on left lower arm) Peripheral Pulses: 0: Radial (L) (Unable to obtain as cast is in place ), 2+: Radial (R), Posterior Tibial (L), Posterior Tibial (R), Dorsalis Pedis (L), Dorsalis Pedis (R) Skin: Warm, Dry, Intact Neurological: Cranial Nerves Intact (Grossly) Neuro Extensive - Mental Status: Alert, Normal Mood/Affect, Other (Mild confusion ) Neuro Extensive - Motor, Sensory, Reflexes: CN II-XII Intact (Grossly ), Tremor (chronic ) Psychiatric: Alert, Normal Affect, Normal Mood - Patient Data Result Diagrams: 08/11/17 15:45 08/11/17 15:45 *Q Meaningful Use (ADM) - VTE *Q VTE Criteria *Q: - Stroke *Q Stroke Criteria *Q: - AMI *Q AMI Criteria *Q: - Problem List (1) UTI (urinary tract infection) SNOMED Code(s): 18859141 ICD Code: N39.0 - URINARY TRACT INFECTION, SITE NOT SPECIFIED Status: Acute Priority: High Current Visit: Yes QualifierTitle: Urinary tract infection type: acute cystitis Hematuria presence: without hematuria Qualified Code(s): N30.00 - Acute cystitis without hematuria (2) Dehydration SNOMED Code(s): 19113021 ICD Code: E86.0 - DEHYDRATION Status: Acute Priority: High Current Visit: Yes (3) Renal insufficiency SNOMED Code(s): 670463121 ICD Code: N28.9 - DISORDER OF KIDNEY AND URETER, UNSPECIFIED Status: Acute Priority: High Current Visit: Yes Problem List Initiated/Reviewed/Updated: Yes Orders Last 24hrs: Active Orders 24 hr Category Date Time Status Admission Status [Patient Status] [ADT] Routine ADT 08/11/17 20:24 Active Ambulate [RC] PER UNIT ROUTINE Care 08/11/17 21:22 Active Antiembolic Devices [RC] PER UNIT ROUTINE Care 08/11/17 21:24 Active Blood Glucose Check, Bedside [RC] QIDACANDBED Care 08/11/17 21:22 Active Cardiac Monitoring [RC] CONTINUOUS Care 08/11/17 21:22 Active Height and Weight [RC] DAILY Care 08/11/17 21:22 Active Intake and Output [RC] QSHIFT Care 08/11/17 21:22 Active Oxygen Therapy [RC] PRN Care 08/11/17 21:22 Active Pulse Oximetry [RC] PRN Care 08/11/17 21:22 Active Up With Assistance [RC] ASDIRECTED Care 08/11/17 21:22 Active VTE/DVT Education [RC] PER UNIT ROUTINE Care 08/11/17 21:22 Active Vital Signs [RC] Q4H Care 08/11/17 21:22 Active Consult to Case Management [CONS] Routine Cons 08/11/17 21:22 Active Consult to Legal Archivist [CONS] Routine Cons 08/11/17 21:22 Active OT Evaluation and Treatment [CONS] Routine Cons 08/11/17 21:22 Active PT Evaluation and Treatment [CONS] Routine Cons 08/11/17 21:22 Active Acetaminophen Med 08/12/17 09:00 Ordered 1,000 mg PO BID Acetaminophen [Tylenol] Med 08/11/17 21:22 Ordered 650 mg PO Q4H PRN Aspirin Med 08/12/17 09:00 Ordered 81 mg PO DAILY Bisacodyl [Dulcolax] Med 08/11/17 21:22 Ordered 5 mg PO DAILY PRN Ca Carbonate/Vitamin D3/Vit K [Calcium + D Soft Med 08/12/17 09:00 Ordered Chewable Tab] 1 tab PO BID Clopidogrel [Plavix] Med 08/12/17 09:00 Ordered 75 mg PO DAILY Dextrose 50% in Water Med 08/11/17 21:34 Ordered 50 ml IVPUSH ASDIRECTED PRN Diflunisal [Diflunisal] Med 08/12/17 09:00 Ordered 500 mg PO TID Docusate Sodium [Colace] Med 08/11/17 21:22 Ordered 100 mg PO BID PRN Docusate Sodium/Sennosides [Senna Plus] Med 08/11/17 21:22 Ordered 1 tab PO BID PRN Furosemide [Lasix] Med 08/12/17 08:00 Ordered 20 mg PO QAM Furosemide [Lasix] Med 08/12/17 08:00 Ordered 40 mg PO QAM Gabapentin [Neurontin] Med 08/12/17 09:00 Ordered 300 mg PO TID Insulin Aspart [NovoLOG] Med 08/11/17 22:00 Ordered See Protocol SUBCUT QIDACANDBED Insulin Detemir [Levemir] Med 08/12/17 18:00 Ordered 14 unit SUBCUT QPM Insulin Detemir [Levemir] Med 08/12/17 08:00 Ordered 26 unit SUBCUT QAM Isosorbide Mononitrate [Imdur] Med 08/12/17 09:00 Ordered 60 mg PO DAILY Levofloxacin/Dextrose 5%-Water [Levaquin in D5W 500 MG/ Med 08/12/17 10:00 Ordered 100 ML] 500 mg Premix Bag 1 bag IV Q24H Lisinopril [Prinivil] Med 08/12/17 09:00 Ordered 20 mg PO DAILY Menthol [Zim's Max-Freeze] Med 08/11/17 21:30 Ordered 1 applic TOP BID PRN Pantoprazole [ProTONIX] Med 08/12/17 08:00 Ordered 40 mg PO QAM Potassium Chloride [Potassium Chloride] Med 08/12/17 09:00 Ordered 10 meq PO BID Primidone [Mysoline] Med 08/12/17 09:00 Ordered 100 mg PO TID Rivastigmine [Exelon] Med 08/12/17 09:00 Ordered 1 patch TRDERM DAILY Simvastatin [Zocor] Med 08/12/17 18:00 Ordered 40 mg PO QPM Antiembolic Hose [OM.PC] Per Unit Routine Oth 08/11/17 21:22 Ordered Resuscitation Status Routine Resus Stat 08/11/17 20:56 Ordered Medication Orders Acetaminophen (Tylenol) 650 mg PO Q4H PRN PRN Reason: Pain (Mild 1-3)/fever Aspirin (Aspirin) 81 mg PO DAILY BRIAN Bisacodyl (Dulcolax) 5 mg PO DAILY PRN PRN Reason: Constipation Clopidogrel Bisulfate (Plavix) 75 mg PO DAILY BRIAN Dextrose/Water (Dextrose 50% In Water) 50 ml IVPUSH ASDIRECTED PRN PRN Reason: Hypoglycemia Docusate Sodium (Colace) 100 mg PO BID PRN PRN Reason: Constipation Furosemide (Lasix) 20 mg PO QAM BRIAN Furosemide (Lasix) 40 mg PO QAM BRIAN Gabapentin (Neurontin) 300 mg PO TID BRIAN Levofloxacin/Dextrose 500 mg/ (Premix) 100 mls @ 100 mls/hr IV Q24H [facility] Insulin Aspart (Novolog) 0 unit SUBCUT QIDACANDBED BRIAN PRN Reason: Protocol Insulin Detemir (Levemir) 14 unit SUBCUT QPM [facility] Insulin Detemir (Levemir) 26 unit SUBCUT QAM [facility] Isosorbide Mononitrate (Imdur) 60 mg PO DAILY [facility] Lisinopril (Prinivil) 20 mg PO DAILY [facility] Non-Formulary Medication (Acetaminophen) 1,000 mg PO BID [facility] Non-Formulary Medication (Ca Carbonate/Vitamin D3/Vit K [Calcium + D Soft Chewable Tab]) 1 tab PO BID BRIAN Non-Formulary Medication (Diflunisal [Diflunisal]) 500 mg PO TID BRIAN Non-Formulary Medication (Menthol [Zim's Max-Freeze]) 1 applic TOP BID PRN PRN Reason: Pain Non-Formulary Medication (Potassium Chloride [Potassium Chloride]) 10 meq PO BID BRIAN Non-Formulary Medication (Rivastigmine [Exelon]) 1 patch TRDERM DAILY BRIAN Pantoprazole Sodium (Protonix) 40 mg PO QAM BRIAN Primidone (Mysoline) 100 mg PO TID BRIAN Senna/Docusate Sodium (Senna Plus) 1 tab PO BID PRN PRN Reason: Constipation Simvastatin (Zocor) 40 mg PO QPM BRIAN Sodium Chloride (Saline Flush) 10 ml FLUSH ASDIRECTED PRN PRN Reason: Keep Vein Open Last Admin: 08/11/17 15:59 Dose: 10 ml Assessment/Plan Comment:: I/P: Acute: UTI -Presented to ED with increased confusion, malaise, and weakness. -HX/o recurrent UTI's -Afrbrile -Normotensive, HR WNL -UA in ED positive for UTI -Lactic acid 1.4 -WBC 19.91 -Levaquin 500mg given in ED - continue on floor -She is alert on floor and answers questions appropriately, although some mild confusion -Urine cultures pending -Blood cultures pending Renal insufficiency -Acute on chronic -BUN 77 -Creatinine 2.7 -eGFR 17 -ED provider reports baseline creatinine appears to be 1.5-1.7 -In reviewing old charts it appears eGRF is usually around mid 40's. -Pt. given multiple fluid boluses in ED -Fluids ordered here, monitor for fluid overload Dehydration -Anion gap 17.0 -Kidney function as above -Fluids as above Chronic: Type II DM - home levemir and medium dose sliding scale insulin per protocol HLD HTN - stable Recurrent UTIs Arthritis Osteoporosis Hx/o CVA Hx/o Coronary artery bypass Plan: Admit to inpatient medical floor CM/SW for discharge planning PT/OT GI prophylaxis: home protonix DVT/PE prophylaxis: JAYLA hose and on home asa and plavix Other orders as indicated above Home medications as indicated Code status: DNR/DNI. Her PCP is Dr. Blevins at [facility] here in [place]. <Patricia Mckeon - Last Filed: 08/12/17 19:09> H&P History of Present Illness - General Admit Problem/Dx: Admission Diagnosis/Problem Admission Diagnosis/Problem Sepsis Exam - Vital Signs Vital Signs: Last Vital Signs Temp 36.8 C 08/12/17 15:42 Pulse 60 08/12/17 15:42 Resp 18 08/12/17 15:42 BP 140/62 08/12/17 15:42 Pulse Ox 96 08/12/17 15:42 - Patient Data Lab Results Last 24 hrs: Laboratory Results - last 24 hr 08/11/17 08/11/17 08/12/17 Range/Units 21:58 23:50 05:50 WBC 17.94 H (3.98-10.04) K/mm3 RBC 3.29 L (3.98-5.22) M/mm3 Hgb 10.8 L (11.2-15.7) gm/L Hct 33.6 L (34.1-44.9) % MCV 102.1 H (79.4-94.8) fl MCH 32.8 H (25.6-32.2) pg MCHC 32.1 L (32.2-35.5) g/dl RDW Std Deviation 49.7 H (36.4-46.3) fL Plt Count 323 (182-369) K/mm3 MPV 13.3 H (9.4-12.3) fl Neut % (Auto) 74.6 H (34.0-71.1) % Lymph % (Auto) 13.8 L (19.3-51.7) % [place] % (Auto) 10.5 (4.7-12.5) % Eos % (Auto) 0.6 L (0.7-5.8) Baso % (Auto) 0.2 (0.1-1.2) % Neut # (Auto) 13.38 H (1.56-6.13) K/mm3 Lymph # (Auto) 2.48 (1.18-3.74) K/mm3 [place] # (Auto) 1.88 H (0.24-0.36) K/mm3 Eos # (Auto) 0.10 (0.04-0.36) K/mm3 Baso # (Auto) 0.04 (0.01-0.08) K/mm3 Manual Slide Review Abnormal smear Sodium (136-145) mEq/L Potassium (3.5-5.1) mEq/L Chloride (98-107) mEq/L Carbon Dioxide (21-32) mEq/L Anion Gap (5-15) BUN (7-18) mg/dL Creatinine (0.55-1.02) mg/dL Est Cr Clr Drug Dosing mL/min Estimated GFR (MDRD) (>60) mL/min BUN/Creatinine Ratio (14-18) Glucose (83-115) mg/dL POC Glucose 138 H (83-110) mg/dL Lactic Acid (0.4-2.0) mmol/L Calcium (8.5-10.1) mg/dL Magnesium (1.8-2.4) mg/dl C-Reactive Protein (<1.0) mg/dL NT-Pro-B Natriuret Pep (0-450) pg/mL MRSA (PCR) Negative 08/12/17 08/12/17 08/12/17 Range/Units 05:50 05:50 06:34 WBC (3.98-10.04) K/mm3 RBC (3.98-5.22) M/mm3 Hgb (11.2-15.7) gm/L Hct (34.1-44.9) % MCV (79.4-94.8) fl MCH (25.6-32.2) pg MCHC (32.2-35.5) g/dl RDW Std Deviation (36.4-46.3) fL Plt Count (182-369) K/mm3 MPV (9.4-12.3) fl Neut % (Auto) (34.0-71.1) % Lymph % (Auto) (19.3-51.7) % [place] % (Auto) (4.7-12.5) % Eos % (Auto) (0.7-5.8) Baso % (Auto) (0.1-1.2) % Neut # (Auto) (1.56-6.13) K/mm3 Lymph # (Auto) (1.18-3.74) K/mm3 [place] # (Auto) (0.24-0.36) K/mm3 Eos # (Auto) (0.04-0.36) K/mm3 Baso # (Auto) (0.01-0.08) K/mm3 Manual Slide Review Sodium 140 (136-145) mEq/L Potassium 4.3 (3.5-5.1) mEq/L Chloride 106 (98-107) mEq/L Carbon Dioxide 23 (21-32) mEq/L Anion Gap 15.3 H (5-15) BUN 50 H (7-18) mg/dL Creatinine 1.6 H (0.55-1.02) mg/dL Est Cr Clr Drug Dosing 19.59 mL/min Estimated GFR (MDRD) 30 (>60) mL/min BUN/Creatinine Ratio 31.3 H (14-18) Glucose 218 H (83-115) mg/dL POC Glucose 223 H (83-110) mg/dL Lactic Acid 0.6 (0.4-2.0) mmol/L Calcium 7.6 L (8.5-10.1) mg/dL Magnesium 2.1 (1.8-2.4) mg/dl C-Reactive Protein 22.2 H* (<1.0) mg/dL NT-Pro-B Natriuret Pep 1467 H (0-450) pg/mL MRSA (PCR) 08/12/17 08/12/17 Range/Units 11:46 17:17 WBC (3.98-10.04) K/mm3 RBC (3.98-5.22) M/mm3 Hgb (11.2-15.7) gm/L Hct (34.1-44.9) % MCV (79.4-94.8) fl MCH (25.6-32.2) pg MCHC (32.2-35.5) g/dl RDW Std Deviation (36.4-46.3) fL Plt Count (182-369) K/mm3 MPV (9.4-12.3) fl Neut % (Auto) (34.0-71.1) % Lymph % (Auto) (19.3-51.7) % [place] % (Auto) (4.7-12.5) % Eos % (Auto) (0.7-5.8) Baso % (Auto) (0.1-1.2) % Neut # (Auto) (1.56-6.13) K/mm3 Lymph # (Auto) (1.18-3.74) K/mm3 [place] # (Auto) (0.24-0.36) K/mm3 Eos # (Auto) (0.04-0.36) K/mm3 Baso # (Auto) (0.01-0.08) K/mm3 Manual Slide Review Sodium (136-145) mEq/L Potassium (3.5-5.1) mEq/L Chloride (98-107) mEq/L Carbon Dioxide (21-32) mEq/L Anion Gap (5-15) BUN (7-18) mg/dL Creatinine (0.55-1.02) mg/dL Est Cr Clr Drug Dosing mL/min Estimated GFR (MDRD) (>60) mL/min BUN/Creatinine Ratio (14-18) Glucose (83-115) mg/dL POC Glucose 310 H 233 H (83-110) mg/dL Lactic Acid (0.4-2.0) mmol/L Calcium (8.5-10.1) mg/dL Magnesium (1.8-2.4) mg/dl C-Reactive Protein (<1.0) mg/dL NT-Pro-B Natriuret Pep (0-450) pg/mL MRSA (PCR) Result Diagrams: 08/12/17 05:50 08/12/17 05:50 *Q Meaningful Use (ADM) - VTE *Q VTE Criteria *Q: - Stroke *Q Stroke Criteria *Q: - AMI *Q AMI Criteria *Q: Orders Last 24hrs: Active Orders 24 hr Category Date Time Status Admission Status [Patient Status] [ADT] Routine ADT 08/12/17 06:12 Active Ambulate [RC] PER UNIT ROUTINE Care 08/11/17 21:22 Active Antiembolic Devices [RC] BID Care 08/11/17 21:24 Active Blood Glucose Check, Bedside [RC] QIDACANDBED Care 08/11/17 21:22 Active Height and Weight [RC] 04 Care 08/11/17 21:22 Active Intake and Output [RC] 04,16 Care 08/11/17 21:22 Active Oxygen Therapy [RC] PRN Care 08/11/17 21:22 Active Pulse Oximetry [RC] PRN Care 08/11/17 21:22 Active RT Aerosol Therapy [RC] ASDIRECTED Care 08/12/17 13:47 Inactive RT Aerosol Therapy [RC] ASDIRECTED Care 08/12/17 13:47 Inactive Up With Assistance [RC] ASDIRECTED Care 08/11/17 21:22 Active VTE/DVT Education [RC] DAILY Care 08/11/17 21:22 Active Vital Signs [RC] Q4HR Care 08/11/17 21:22 Active Consult to Case Management [CONS] Routine Cons 08/11/17 21:22 Active Consult to Legal Archivist [CONS] Routine Cons 08/11/17 21:22 Active OT Evaluation and Treatment [CONS] Routine Cons 08/11/17 21:22 Active PT Evaluation and Treatment [CONS] Routine Cons 08/11/17 21:22 Active ADA Diabetic [[place] [employer] Diet] [DIET Diet 08/12/17 Breakfast Active ] BASIC METABOLIC PANEL,BMP [CHEM] AM Lab 08/13/17 05:11 Ordered BASIC METABOLIC PANEL,BMP [CHEM] AM Lab 08/14/17 05:11 Ordered BASIC METABOLIC PANEL,BMP [CHEM] AM Lab 08/15/17 05:11 Ordered CBC WITH AUTO DIFF [HEME] AM Lab 08/13/17 05:11 Ordered CBC WITH AUTO DIFF [HEME] AM Lab 08/14/17 05:11 Ordered CBC WITH AUTO DIFF [HEME] AM Lab 08/15/17 05:11 Ordered CRP [C-REACTIVE PROTEIN] [CHEM] AM Lab 08/13/17 05:11 Ordered CRP [C-REACTIVE PROTEIN] [CHEM] AM Lab 08/14/17 05:11 Ordered CRP [C-REACTIVE PROTEIN] [CHEM] AM Lab 08/15/17 05:11 Ordered MAGNESIUM [CHEM] AM Lab 08/13/17 05:11 Ordered MAGNESIUM [CHEM] AM Lab 08/14/17 05:11 Ordered MAGNESIUM [CHEM] AM Lab 08/15/17 05:11 Ordered MG [MAGNESIUM] [CHEM] Stat Lab 08/12/17 18:46 Received Acetaminophen [Tylenol] Med 08/12/17 09:00 Active 650 mg PO BID Acetaminophen [Tylenol] Med 08/11/17 21:22 Active 650 mg PO Q4H PRN Aspirin [Halfprin] Med 08/12/17 09:00 Active 81 mg PO DAILY Bisacodyl [Dulcolax] Med 08/11/17 21:22 Active 5 mg PO DAILY PRN Calcium Carbonate/Vitamin D3 [Calcium Carbonate/Vitamin Med 08/12/17 07:00 Active D 1500 MG-200 Unit] 1 tab PO BIDMEALS Clopidogrel [Plavix] Med 08/12/17 09:00 Active 75 mg PO DAILY Dextrose 50% in Water Med 08/11/17 21:34 Active 50 ml IVPUSH ASDIRECTED PRN Docusate Sodium [Colace] Med 08/11/17 21:22 Active 100 mg PO BID PRN Docusate Sodium/Sennosides [Senna Plus] Med 08/11/17 21:22 Active 1 tab PO BID PRN Furosemide [Lasix] Med 08/12/17 07:00 Active 60 mg PO DAILY@0700 Gabapentin [Neurontin] Med 08/12/17 09:00 Active 300 mg PO TID Insulin Aspart [NovoLOG] Med 08/11/17 22:00 Active See Protocol SUBCUT QIDACANDBED Insulin Detemir [Levemir] Med 08/12/17 18:00 Active 14 unit SUBCUT QPM Insulin Detemir [Levemir] Med 08/12/17 08:00 Active 26 unit SUBCUT QAM Isosorbide Mononitrate [Imdur] Med 08/12/17 09:00 Active 60 mg PO DAILY Levofloxacin/Dextrose 5%-Water [Levaquin in D5W 500 MG/ Med 08/13/17 18:00 Active 100 ML] 500 mg Premix Bag 1 bag IV Q48H Lisinopril [Prinivil] Med 08/12/17 09:00 Active 20 mg PO DAILY Menthol/Methyl Salicylate [Analgesic [place]] Med 08/12/17 07:18 Active 0 gm TOP BID PRN Pantoprazole [ProTONIX] Med 08/12/17 07:00 Active 40 mg PO DAILY@0700 Potassium Chloride [Klor-Con 10] Med 08/12/17 07:00 Active 10 meq PO BIDMEALS Primidone [Mysoline] Med 08/12/17 09:00 Active 100 mg PO TID Remove Patch Med 08/12/17 09:00 Active 0 ea TRDERM Q24H Rivastigmine [Exelon] Med 08/12/17 09:00 Active 9.5 mg TOP Q24H Salsalate [Disalcid] Med 08/12/17 09:00 Active 1,000 mg PO TID Simvastatin [Zocor] Med 08/12/17 18:00 Active 40 mg PO QPM Sodium Chloride 0.9% [Normal Saline] 1,000 ml Med 08/11/17 21:45 Active IV ASDIRECTED Antiembolic Hose [OM.PC] Per Unit Routine Oth 08/11/17 21:22 Ordered Resuscitation Status Routine Resus Stat 08/11/17 20:56 Ordered Medication Orders Acetaminophen (Tylenol) 650 mg PO Q4H PRN PRN Reason: Pain (Mild 1-3)/fever Acetaminophen (Tylenol) 650 mg PO BID [facility] Last Admin: 08/12/17 09:01 Dose: 650 mg Aspirin (Halfprin) 81 mg PO DAILY [facility] Last Admin: 08/12/17 09:03 Dose: 81 mg Bisacodyl (Dulcolax) 5 mg PO DAILY PRN PRN Reason: Constipation Calcium Carbonate (Calcium Carbonate/Vitamin D 1500 Mg-200 Unit) 1 tab PO BIDMEALS [facility] Last Admin: 08/12/17 16:18 Dose: 1 tab Admin: 08/12/17 06:35 Dose: 1 tab Clopidogrel Bisulfate (Plavix) 75 mg PO DAILY [facility] Last Admin: 08/12/17 09:03 Dose: 75 mg Dextrose/Water (Dextrose 50% In Water) 50 ml IVPUSH ASDIRECTED PRN PRN Reason: Hypoglycemia Docusate Sodium (Colace) 100 mg PO BID PRN PRN Reason: Constipation Furosemide (Lasix) 60 mg PO DAILY@0700 [facility] Last Admin: 08/12/17 06:35 Dose: 60 mg Gabapentin (Neurontin) 300 mg PO TID [facility] Last Admin: 08/12/17 16:18 Dose: 300 mg Admin: 08/12/17 09:02 Dose: 300 mg Sodium Chloride (Normal Saline) 1,000 mls @ 100 mls/hr IV ASDIRECTED [facility] Stop: 08/13/17 07:44 Last Admin: 08/12/17 10:27 Dose: 100 mls/hr Infusion: 08/12/17 09:55 Dose: 100 mls/hr Admin: 08/11/17 23:55 Dose: 100 mls/hr Levofloxacin/Dextrose 500 mg/ (Premix) 100 mls @ 100 mls/hr IV Q48H [facility] Insulin Aspart (Novolog) 0 unit SUBCUT QIDACANDBED [facility] PRN Reason: Protocol Last Admin: 08/12/17 17:18 Dose: 4 units Admin: 08/12/17 11:50 Dose: 8 units Admin: 08/12/17 08:51 Dose: 4 units Admin: 08/11/17 22:43 Dose: Not Given Insulin Detemir (Levemir) 14 unit SUBCUT QPM [facility] Last Admin: 08/12/17 17:19 Dose: 14 units Insulin Detemir (Levemir) 26 unit SUBCUT QAM [facility] Last Admin: 08/12/17 08:56 Dose: 26 units Isosorbide Mononitrate (Imdur) 60 mg PO DAILY [facility] Last Admin: 08/12/17 09:01 Dose: 60 mg Lisinopril (Prinivil) 20 mg PO DAILY [facility] Last Admin: 08/12/17 09:02 Dose: 20 mg Methyl Salicylate (Analgesic [place]) 0 gm TOP BID PRN PRN Reason: PAIN Miscellaneous Information (Remove Patch) 0 ea TRDERM Q24H [facility] Pantoprazole Sodium (Protonix) 40 mg PO DAILY@0700 [facility] Last Admin: 08/12/17 06:35 Dose: 40 mg Potassium Chloride (Klor-Con 10) 10 meq PO BIDMEALS [facility] Last Admin: 08/12/17 16:18 Dose: 10 meq Admin: 08/12/17 06:35 Dose: 10 meq Primidone (Mysoline) 100 mg PO TID [facility] Last Admin: 08/12/17 16:18 Dose: 100 mg Admin: 08/12/17 09:02 Dose: 100 mg Rivastigmine (Exelon) 9.5 mg TOP Q24H [facility] Salsalate (Disalcid) 1,000 mg PO TID [facility] Last Admin: 08/12/17 16:17 Dose: 1,000 mg Admin: 08/12/17 09:01 Dose: 1,000 mg Senna/Docusate Sodium (Senna Plus) 1 tab PO BID PRN PRN Reason: Constipation Simvastatin (Zocor) 40 mg PO QPM [facility] Last Admin: 08/12/17 17:18 Dose: 40 mg Sodium Chloride (Saline Flush) 10 ml FLUSH ASDIRECTED PRN PRN Reason: Keep Vein Open Last Admin: 08/11/17 15:59 Dose: 10 ml Assessment/Plan Comment:: Follow C/S and adjust IV ATB as needed.
[2017-08-11] MEDS ORDERED: Perform Pain Reliever Gel 89 ML Tube TP PRN (22:00)
[2017-08-11] MEDS: Insulin Aspart 100 Units/ML 3 ML Pen SUBCUT SCH (22:43)
[2017-08-11] MEDS: Sodium Chloride 0.9% 1,000 ML IV SCH (23:55)
[2017-08-12] MEDS: Potassium Chloride 10 MEQ Tab.ER PO SCH ×2 (06:35→16:18)
[2017-08-12] MEDS: Furosemide 20 MG Tab PO SCH (06:35)
[2017-08-12] MEDS: Calcium Carbonate/Vitamin D3 1500 MG-200 Units Tab PO SCH ×2 (06:35→16:18)
[2017-08-12] MEDS: Pantoprazole 40 MG Tab.CR PO SCH (06:35)
[2017-08-12] MEDS ORDERED: Menthol/Methyl Salicylate 29 GM Tube TOP PRN (07:18)
[2017-08-12] MEDS ORDERED: Furosemide 40 MG Tab PO SCH (08:00)
[2017-08-12] MEDS: Insulin Aspart 100 Units/ML 3 ML Pen SUBCUT SCH ×4 (08:51→21:37)
[2017-08-12] MEDS: Insulin Detemir 100 Units/ML 3 ML Pen SUBCUT SCH ×2 (08:56→17:19)
[2017-08-12] MEDS ORDERED: Non-Formulary Medication 1 Each (Acetaminophen 1,000 MG) PO SCH (09:00)
[2017-08-12] MEDS: Isosorbide Mononitrate 60 MG Tab.ER PO SCH (09:01)
[2017-08-12] MEDS: Acetaminophen 325 MG Tab PO SCH ×2 (09:01→21:38)
[2017-08-12] MEDS: Lisinopril 20 MG Tab PO SCH (09:02)
[2017-08-12] MEDS: Primidone 50 MG Tab PO SCH ×3 (09:02→21:38)
[2017-08-12] MEDS: Gabapentin 300 MG Cap PO SCH ×3 (09:02→21:38)
[2017-08-12] MEDS: Clopidogrel 75 MG Tab PO SCH (09:03)
[2017-08-12] MEDS: Aspirin 81 MG Tab.EC PO SCH (09:03)
[2017-08-12] MEDS: Sodium Chloride 0.9% 1,000 ML IV SCH (10:27)
--- NOTE | 2017-08-12 12:46 | PCM.PN ---
<Sim Hartman - Last Filed: 08/12/17 13:51> - General Info Date of Service: 08/12/17 Admission Dx/Problem (Free Text): Admission Diagnosis/Problem Admission Diagnosis/Problem Sepsis Subjective Update: Roma is seen today while resting in the chair. She still denies any complaints. She is confused. She had a good breakfast with 60% consumed. One of her blood cultures did grow out gram negative rods, as did her urine culture. Sensitivities are pending and should be back tomorrow. Kidney function is improving. Functional Status: Reports: Pain Controlled, Tolerating Diet, Ambulating, Urinating. Denies: New Symptoms - Review of Systems General: Reports: Weakness. Denies: Fever, Fatigue, Malaise, Chills HEENT: Reports: No Symptoms Pulmonary: Reports: No Symptoms Cardiovascular: Reports: No Symptoms Gastrointestinal: Reports: No Symptoms Genitourinary: Reports: No Symptoms Musculoskeletal: Reports: No Symptoms Skin: Reports: No Symptoms Neurological: Reports: Confusion, Weakness. Denies: Dizziness, Headache, Numbness, Tingling, Trouble Speaking, Difficulty Walking Psychiatric: Reports: No Symptoms - Patient Data Vitals - Most Recent: Last Vital Signs Temp 98.8 F 08/12/17 08:13 Pulse 61 08/12/17 08:13 Resp 16 08/12/17 08:49 BP 153/60 H 08/12/17 09:02 Pulse Ox 96 08/12/17 08:13 Weight - Most Recent: 69.899 kg I&O - Last 24 Hours: Intake & Output 08/11/17 08/12/17 08/12/17 22:59 06:59 14:59 Intake Total 1250 240 Output Total 150 Balance 1100 240 Lab Results Last 24 Hours: Laboratory Results - last 24 hr 08/11/17 08/11/17 08/12/17 Range/Units 21:58 23:50 05:50 WBC 17.94 H (3.98-10.04) K/mm3 RBC 3.29 L (3.98-5.22) M/mm3 Hgb 10.8 L (11.2-15.7) gm/L Hct 33.6 L (34.1-44.9) % MCV 102.1 H (79.4-94.8) fl MCH 32.8 H (25.6-32.2) pg MCHC 32.1 L (32.2-35.5) g/dl RDW Std Deviation 49.7 H (36.4-46.3) fL Plt Count 323 (182-369) K/mm3 MPV 13.3 H (9.4-12.3) fl Neut % (Auto) 74.6 H (34.0-71.1) % Lymph % (Auto) 13.8 L (19.3-51.7) % Jay % (Auto) 10.5 (4.7-12.5) % Eos % (Auto) 0.6 L (0.7-5.8) Baso % (Auto) 0.2 (0.1-1.2) % Neut # (Auto) 13.38 H (1.56-6.13) K/mm3 Lymph # (Auto) 2.48 (1.18-3.74) K/mm3 Jay # (Auto) 1.88 H (0.24-0.36) K/mm3 Eos # (Auto) 0.10 (0.04-0.36) K/mm3 Baso # (Auto) 0.04 (0.01-0.08) K/mm3 Manual Slide Review Abnormal smear Sodium (136-145) mEq/L Potassium (3.5-5.1) mEq/L Chloride (98-107) mEq/L Carbon Dioxide (21-32) mEq/L Anion Gap (5-15) BUN (7-18) mg/dL Creatinine (0.55-1.02) mg/dL Est Cr Clr Drug Dosing mL/min Estimated GFR (MDRD) (>60) mL/min BUN/Creatinine Ratio (14-18) Glucose (83-115) mg/dL POC Glucose 138 H (83-110) mg/dL Lactic Acid (0.4-2.0) mmol/L Calcium (8.5-10.1) mg/dL Magnesium (1.8-2.4) mg/dl C-Reactive Protein (<1.0) mg/dL NT-Pro-B Natriuret Pep (0-450) pg/mL MRSA (PCR) Negative 08/12/17 08/12/17 08/12/17 Range/Units 05:50 05:50 06:34 WBC (3.98-10.04) K/mm3 RBC (3.98-5.22) M/mm3 Hgb (11.2-15.7) gm/L Hct (34.1-44.9) % MCV (79.4-94.8) fl MCH (25.6-32.2) pg MCHC (32.2-35.5) g/dl RDW Std Deviation (36.4-46.3) fL Plt Count (182-369) K/mm3 MPV (9.4-12.3) fl Neut % (Auto) (34.0-71.1) % Lymph % (Auto) (19.3-51.7) % Jay % (Auto) (4.7-12.5) % Eos % (Auto) (0.7-5.8) Baso % (Auto) (0.1-1.2) % Neut # (Auto) (1.56-6.13) K/mm3 Lymph # (Auto) (1.18-3.74) K/mm3 Jay # (Auto) (0.24-0.36) K/mm3 Eos # (Auto) (0.04-0.36) K/mm3 Baso # (Auto) (0.01-0.08) K/mm3 Manual Slide Review Sodium 140 (136-145) mEq/L Potassium 4.3 (3.5-5.1) mEq/L Chloride 106 (98-107) mEq/L Carbon Dioxide 23 (21-32) mEq/L Anion Gap 15.3 H (5-15) BUN 50 H (7-18) mg/dL Creatinine 1.6 H (0.55-1.02) mg/dL Est Cr Clr Drug Dosing 19.59 mL/min Estimated GFR (MDRD) 30 (>60) mL/min BUN/Creatinine Ratio 31.3 H (14-18) Glucose 218 H (83-115) mg/dL POC Glucose 223 H (83-110) mg/dL Lactic Acid 0.6 (0.4-2.0) mmol/L Calcium 7.6 L (8.5-10.1) mg/dL Magnesium 2.1 (1.8-2.4) mg/dl C-Reactive Protein 22.2 H* (<1.0) mg/dL NT-Pro-B Natriuret Pep 1467 H (0-450) pg/mL MRSA (PCR) 08/12/17 Range/Units 11:46 WBC (3.98-10.04) K/mm3 RBC (3.98-5.22) M/mm3 Hgb (11.2-15.7) gm/L Hct (34.1-44.9) % MCV (79.4-94.8) fl MCH (25.6-32.2) pg MCHC (32.2-35.5) g/dl RDW Std Deviation (36.4-46.3) fL Plt Count (182-369) K/mm3 MPV (9.4-12.3) fl Neut % (Auto) (34.0-71.1) % Lymph % (Auto) (19.3-51.7) % Jay % (Auto) (4.7-12.5) % Eos % (Auto) (0.7-5.8) Baso % (Auto) (0.1-1.2) % Neut # (Auto) (1.56-6.13) K/mm3 Lymph # (Auto) (1.18-3.74) K/mm3 Jay # (Auto) (0.24-0.36) K/mm3 Eos # (Auto) (0.04-0.36) K/mm3 Baso # (Auto) (0.01-0.08) K/mm3 Manual Slide Review Sodium (136-145) mEq/L Potassium (3.5-5.1) mEq/L Chloride (98-107) mEq/L Carbon Dioxide (21-32) mEq/L Anion Gap (5-15) BUN (7-18) mg/dL Creatinine (0.55-1.02) mg/dL Est Cr Clr Drug Dosing mL/min Estimated GFR (MDRD) (>60) mL/min BUN/Creatinine Ratio (14-18) Glucose (83-115) mg/dL POC Glucose 310 H (83-110) mg/dL Lactic Acid (0.4-2.0) mmol/L Calcium (8.5-10.1) mg/dL Magnesium (1.8-2.4) mg/dl C-Reactive Protein (<1.0) mg/dL NT-Pro-B Natriuret Pep (0-450) pg/mL MRSA (PCR) Med Orders - Current: Current Medications Acetaminophen (Tylenol) 650 mg PO Q4H PRN PRN Reason: Pain (Mild 1-3)/fever Acetaminophen (Tylenol) 650 mg PO BID [facility] Last Admin: 08/12/17 09:01 Dose: 650 mg Aspirin (Halfprin) 81 mg PO DAILY [facility] Last Admin: 08/12/17 09:03 Dose: 81 mg Bisacodyl (Dulcolax) 5 mg PO DAILY PRN PRN Reason: Constipation Calcium Carbonate (Calcium Carbonate/Vitamin D 1500 Mg-200 Unit) 1 tab PO BIDMEALS [facility] Last Admin: 08/12/17 06:35 Dose: 1 tab Clopidogrel Bisulfate (Plavix) 75 mg PO DAILY [facility] Last Admin: 08/12/17 09:03 Dose: 75 mg Dextrose/Water (Dextrose 50% In Water) 50 ml IVPUSH ASDIRECTED PRN PRN Reason: Hypoglycemia Docusate Sodium (Colace) 100 mg PO BID PRN PRN Reason: Constipation Furosemide (Lasix) 60 mg PO DAILY@0700 [facility] Last Admin: 08/12/17 06:35 Dose: 60 mg Gabapentin (Neurontin) 300 mg PO TID [facility] Last Admin: 08/12/17 09:02 Dose: 300 mg Sodium Chloride (Normal Saline) 1,000 mls @ 100 mls/hr IV ASDIRECTED [facility] Stop: 08/13/17 07:44 Last Admin: 08/12/17 10:27 Dose: 100 mls/hr Levofloxacin/Dextrose 500 mg/ (Premix) 100 mls @ 100 mls/hr IV Q48H [facility] Insulin Aspart (Novolog) 0 unit SUBCUT QIDACANDBED [facility] PRN Reason: Protocol Last Admin: 08/12/17 11:50 Dose: 8 units Insulin Detemir (Levemir) 14 unit SUBCUT QPM [facility] Insulin Detemir (Levemir) 26 unit SUBCUT QAM [facility] Last Admin: 08/12/17 08:56 Dose: 26 units Isosorbide Mononitrate (Imdur) 60 mg PO DAILY [facility] Last Admin: 08/12/17 09:01 Dose: 60 mg Lisinopril (Prinivil) 20 mg PO DAILY [facility] Last Admin: 08/12/17 09:02 Dose: 20 mg Methyl Salicylate (Analgesic [place]) 0 gm TOP BID PRN PRN Reason: PAIN Miscellaneous Information (Remove Patch) 0 ea TRDERM Q24H [facility] Pantoprazole Sodium (Protonix) 40 mg PO DAILY@0700 [facility] Last Admin: 08/12/17 06:35 Dose: 40 mg Potassium Chloride (Klor-Con 10) 10 meq PO BIDMEALS [facility] Last Admin: 08/12/17 06:35 Dose: 10 meq Primidone (Mysoline) 100 mg PO TID [facility] Last Admin: 08/12/17 09:02 Dose: 100 mg Rivastigmine (Exelon) 9.5 mg TOP Q24H [facility] Salsalate (Disalcid) 1,000 mg PO TID [facility] Last Admin: 08/12/17 09:01 Dose: 1,000 mg Senna/Docusate Sodium (Senna Plus) 1 tab PO BID PRN PRN Reason: Constipation Simvastatin (Zocor) 40 mg PO QPM [facility] Sodium Chloride (Saline Flush) 10 ml FLUSH ASDIRECTED PRN PRN Reason: Keep Vein Open Last Admin: 08/11/17 15:59 Dose: 10 ml Discontinued Medications Sodium Chloride (Normal Saline) 1,000 mls @ 1,000 mls/hr IV .BOLUS STA Stop: 08/11/17 16:41 Last Admin: 08/11/17 15:58 Dose: 1,000 mls/hr Levofloxacin/Dextrose 500 mg/ (Premix) 100 mls @ 100 mls/hr IV ONETIME ONE Stop: 08/11/17 18:31 Last Admin: 08/11/17 18:14 Dose: 100 mls/hr Sodium Chloride (Normal Saline) 1,600 mls @ 1,000 mls/hr IV ONETIME ONE Stop: 08/11/17 19:07 Last Admin: 08/11/17 17:36 Dose: 1,000 mls/hr Levofloxacin/Dextrose 500 mg/ (Premix) 100 mls @ 100 mls/hr IV Q24H [facility] Menthol (Perform Pain Reliever) 0 ml TP BID PRN PRN Reason: PAIN Non-Formulary Medication (Ca Carbonate/Vitamin D3/Vit K [Calcium + D Soft Chewable Tab]) 1 tab PO BID [facility] Ondansetron HCl (Zofran Odt) 4 mg PO Q6H PRN PRN Reason: nausea, able to take PO Ondansetron HCl (Zofran) 4 mg IV Q6H PRN PRN Reason: Nausea/Vomiting - Exam Quality Assessment: DVT Prophylaxis General: Alert, Cooperative, Other (confusion ) HEENT: Pupils Equal, Pupils Reactive, EOMI, Mucous Membr. Moist/[place] Neck: Supple, Trachea Midline, No JVD, No Thyromegaly Lungs: Clear to Auscultation, Normal Respiratory Effort Cardiovascular: Regular Rate, Regular Rhythm GI/Abdominal Exam: Normal Bowel Sounds, Soft, Non-Tender, No Organomegaly, No Distention, No Abnormal Bruit, No Mass, Pelvis Stable (Female) Exam: Deferred Back Exam: Normal Inspection Extremities: Normal Inspection, Normal Range of Motion, Non-Tender, No Pedal Edema, Normal Capillary Refill, Other (cast in place on lower left arm) Peripheral Pulses: 2+: Radial (R), Posterior Tibial (L), Posterior Tibial (R), Dorsalis Pedis (L), Dorsalis Pedis (R) Skin: Warm, Dry, Intact Neurological: No New Focal Deficit Psy/Mental Status: Alert, Normal Affect, Normal Mood - Problem List & Annotations (1) UTI (urinary tract infection) SNOMED Code(s): 22236381 Code(s): N39.0 - URINARY TRACT INFECTION, SITE NOT SPECIFIED Status: Acute Priority: High Current Visit: Yes QualifierTitle: Urinary tract infection type: acute cystitis Hematuria presence: without hematuria Qualified Code(s): N30.00 - Acute cystitis without hematuria (2) Dehydration SNOMED Code(s): 39754209 Code(s): E86.0 - DEHYDRATION Status: Acute Priority: High Current Visit : Yes (3) Renal insufficiency SNOMED Code(s): 485289283 Code(s): N28.9 - DISORDER OF KIDNEY AND URETER, UNSPECIFIED Status: Acute Priority: High Current Visit: Yes (4) Sepsis SNOMED Code(s): 15338366 Code(s): A41.9 - SEPSIS, UNSPECIFIED ORGANISM Status: Acute Priority: High Current Visit: Yes QualifierTitle: Sepsis type: sepsis due to unspecified organism Qualified Code(s): A41.9 - Sepsis, unspecified organism - Problem List Review Problem List Initiated/Reviewed/Updated: Yes - My Orders Last 24 Hours: My Active Orders 08/11/17 21:22 Ambulate [RC] PER UNIT ROUTINE Blood Glucose Check, Bedside [RC] QIDACANDBED Height and Weight [RC] 04 Intake and Output [RC] 04,16 Oxygen Therapy [RC] PRN Pulse Oximetry [RC] PRN Up With Assistance [RC] ASDIRECTED VTE/DVT Education [RC] DAILY Vital Signs [RC] Q4HR Consult to Case Management [CONS] Routine Consult to Hand Alterations Seamstress [CONS] Routine OT Evaluation and Treatment [CONS] Routine PT Evaluation and Treatment [CONS] Routine Acetaminophen [Tylenol] 650 mg PO Q4H PRN Bisacodyl [Dulcolax] 5 mg PO DAILY PRN Docusate Sodium [Colace] 100 mg PO BID PRN Docusate Sodium/Sennosides [Senna Plus] 1 tab PO BID PRN Antiembolic Hose [OM.PC] Per Unit Routine 08/11/17 21:24 Antiembolic Devices [RC] BID 08/11/17 21:34 Dextrose 50% in Water 50 ml IVPUSH ASDIRECTED PRN 08/11/17 21:45 Sodium Chloride 0.9% [Normal Saline] 1,000 ml IV ASDIRECTED 08/11/17 22:00 Insulin Aspart [NovoLOG] See Protocol SUBCUT QIDACANDBED 08/12/17 06:12 Admission Status [Patient Status] [ADT] Routine 08/12/17 07:00 Furosemide [Lasix] 60 mg PO DAILY@0700 Pantoprazole [ProTONIX] 40 mg PO DAILY@0700 Potassium Chloride [Klor-Con 10] 10 meq PO BIDMEALS 08/12/17 07:18 Menthol/Methyl Salicylate [Analgesic [place]] 0 gm TOP BID PRN 08/12/17 08:00 Insulin Detemir [Levemir] 26 unit SUBCUT QAM 08/12/17 09:00 Acetaminophen [Tylenol] 650 mg PO BID Aspirin [Halfprin] 81 mg PO DAILY Clopidogrel [Plavix] 75 mg PO DAILY Gabapentin [Neurontin] 300 mg PO TID Isosorbide Mononitrate [Imdur] 60 mg PO DAILY Lisinopril [Prinivil] 20 mg PO DAILY Primidone [Mysoline] 100 mg PO TID Salsalate [Disalcid] 1,000 mg PO TID 08/12/17 18:00 Insulin Detemir [Levemir] 14 unit SUBCUT QPM Simvastatin [Zocor] 40 mg PO QPM 08/13/17 05:11 BASIC METABOLIC PANEL,BMP [CHEM] AM CBC WITH AUTO DIFF [HEME] AM CRP [C-REACTIVE PROTEIN] [CHEM] AM MAGNESIUM [CHEM] AM 08/13/17 18:00 Levofloxacin/Dextrose 5%-Water [Levaquin in D5W 500 MG/100 ML] 500 mg Premix Bag 1 bag IV Q48H 08/14/17 05:11 BASIC METABOLIC PANEL,BMP [CHEM] AM CBC WITH AUTO DIFF [HEME] AM CRP [C-REACTIVE PROTEIN] [CHEM] AM MAGNESIUM [CHEM] AM 08/15/17 05:11 BASIC METABOLIC PANEL,BMP [CHEM] AM CBC WITH AUTO DIFF [HEME] AM CRP [C-REACTIVE PROTEIN] [CHEM] AM MAGNESIUM [CHEM] AM - Plan Plan:: I/P: Acute: UTI -Presented to ED with increased confusion, malaise, and weakness. -HX/o recurrent UTI's -Afrbrile -Normotensive, HR WNL -UA in ED positive for UTI -Lactic acid 1.4-->0.6 -WBC 19.91-->17.94 -Levaquin 500mg given in ED - continue on floor, would increase however kidney function is diminished... -She is alert on floor and answers questions appropriately, although some mild confusion -Urine cultures - gram negative rods, sensitivity pending -Blood cultures - gram negative rods, sensitivity pending Renal insufficiency, improving -Acute on chronic -BUN 77-->50 -Creatinine 2.7-->1.6 -eGFR 17-->30 -ED provider reports baseline creatinine appears to be 1.5-1.7 -In reviewing old charts it appears eGRF is usually around mid 40's. -Pt. given multiple fluid boluses in ED -Fluids ordered here, monitor for fluid overload Dehydration, improved -Anion gap 17.0-->15.3 -Kidney function as above -Fluids as above Chronic: Type II DM - home levemir and medium dose sliding scale insulin per protocol HLD HTN - stable Recurrent UTIs Arthritis Osteoporosis Hx/o CVA Hx/o Coronary artery bypass Plan: Admit to inpatient medical floor CM/SW for discharge planning PT/OT GI prophylaxis: home protonix DVT/PE prophylaxis: JAYLA ladariuse and on home asa and plavix Other orders as indicated above Home medications as indicated Code status: DNR/DNI. Her PCP is Dr. Blevins at [facility] here in [place]. <Patricia Mckeon - Last Filed: 08/12/17 19:10> - Patient Data Vitals - Most Recent: Last Vital Signs Temp 36.8 C 08/12/17 15:42 Pulse 60 08/12/17 15:42 Resp 18 08/12/17 15:42 BP 140/62 08/12/17 15:42 Pulse Ox 96 08/12/17 15:42 I&O - Last 24 Hours: Intake & Output 08/12/17 08/12/17 08/12/17 06:59 14:59 22:59 Intake Total 6476 225 1289 Output Total 150 Balance 7091 160 8638 Lab Results Last 24 Hours: Laboratory Results - last 24 hr 08/11/17 08/11/17 08/12/17 Range/Units 21:58 23:50 05:50 WBC 17.94 H (3.98-10.04) K/mm3 RBC 3.29 L (3.98-5.22) M/mm3 Hgb 10.8 L (11.2-15.7) gm/L Hct 33.6 L (34.1-44.9) % MCV 102.1 H (79.4-94.8) fl MCH 32.8 H (25.6-32.2) pg MCHC 32.1 L (32.2-35.5) g/dl RDW Std Deviation 49.7 H (36.4-46.3) fL Plt Count 323 (182-369) K/mm3 MPV 13.3 H (9.4-12.3) fl Neut % (Auto) 74.6 H (34.0-71.1) % Lymph % (Auto) 13.8 L (19.3-51.7) % Jay % (Auto) 10.5 (4.7-12.5) % Eos % (Auto) 0.6 L (0.7-5.8) Baso % (Auto) 0.2 (0.1-1.2) % Neut # (Auto) 13.38 H (1.56-6.13) K/mm3 Lymph # (Auto) 2.48 (1.18-3.74) K/mm3 Jay # (Auto) 1.88 H (0.24-0.36) K/mm3 Eos # (Auto) 0.10 (0.04-0.36) K/mm3 Baso # (Auto) 0.04 (0.01-0.08) K/mm3 Manual Slide Review Abnormal smear Sodium (136-145) mEq/L Potassium (3.5-5.1) mEq/L Chloride (98-107) mEq/L Carbon Dioxide (21-32) mEq/L Anion Gap (5-15) BUN (7-18) mg/dL Creatinine (0.55-1.02) mg/dL Est Cr Clr Drug Dosing mL/min Estimated GFR (MDRD) (>60) mL/min BUN/Creatinine Ratio (14-18) Glucose (83-115) mg/dL POC Glucose 138 H (83-110) mg/dL Lactic Acid (0.4-2.0) mmol/L Calcium (8.5-10.1) mg/dL Magnesium (1.8-2.4) mg/dl C-Reactive Protein (<1.0) mg/dL NT-Pro-B Natriuret Pep (0-450) pg/mL MRSA (PCR) Negative 08/12/17 08/12/17 08/12/17 Range/Units 05:50 05:50 06:34 WBC (3.98-10.04) K/mm3 RBC (3.98-5.22) M/mm3 Hgb (11.2-15.7) gm/L Hct (34.1-44.9) % MCV (79.4-94.8) fl MCH (25.6-32.2) pg MCHC (32.2-35.5) g/dl RDW Std Deviation (36.4-46.3) fL Plt Count (182-369) K/mm3 MPV (9.4-12.3) fl Neut % (Auto) (34.0-71.1) % Lymph % (Auto) (19.3-51.7) % Jay % (Auto) (4.7-12.5) % Eos % (Auto) (0.7-5.8) Baso % (Auto) (0.1-1.2) % Neut # (Auto) (1.56-6.13) K/mm3 Lymph # (Auto) (1.18-3.74) K/mm3 Jay # (Auto) (0.24-0.36) K/mm3 Eos # (Auto) (0.04-0.36) K/mm3 Baso # (Auto) (0.01-0.08) K/mm3 Manual Slide Review Sodium 140 (136-145) mEq/L Potassium 4.3 (3.5-5.1) mEq/L Chloride 106 (98-107) mEq/L Carbon Dioxide 23 (21-32) mEq/L Anion Gap 15.3 H (5-15) BUN 50 H (7-18) mg/dL Creatinine 1.6 H (0.55-1.02) mg/dL Est Cr Clr Drug Dosing 19.59 mL/min Estimated GFR (MDRD) 30 (>60) mL/min BUN/Creatinine Ratio 31.3 H (14-18) Glucose 218 H (83-115) mg/dL POC Glucose 223 H (83-110) mg/dL Lactic Acid 0.6 (0.4-2.0) mmol/L Calcium 7.6 L (8.5-10.1) mg/dL Magnesium 2.1 (1.8-2.4) mg/dl C-Reactive Protein 22.2 H* (<1.0) mg/dL NT-Pro-B Natriuret Pep 1467 H (0-450) pg/mL MRSA (PCR) 08/12/17 08/12/17 Range/Units 11:46 17:17 WBC (3.98-10.04) K/mm3 RBC (3.98-5.22) M/mm3 Hgb (11.2-15.7) gm/L Hct (34.1-44.9) % MCV (79.4-94.8) fl MCH (25.6-32.2) pg MCHC (32.2-35.5) g/dl RDW Std Deviation (36.4-46.3) fL Plt Count (182-369) K/mm3 MPV (9.4-12.3) fl Neut % (Auto) (34.0-71.1) % Lymph % (Auto) (19.3-51.7) % Jay % (Auto) (4.7-12.5) % Eos % (Auto) (0.7-5.8) Baso % (Auto) (0.1-1.2) % Neut # (Auto) (1.56-6.13) K/mm3 Lymph # (Auto) (1.18-3.74) K/mm3 Jay # (Auto) (0.24-0.36) K/mm3 Eos # (Auto) (0.04-0.36) K/mm3 Baso # (Auto) (0.01-0.08) K/mm3 Manual Slide Review Sodium (136-145) mEq/L Potassium (3.5-5.1) mEq/L Chloride (98-107) mEq/L Carbon Dioxide (21-32) mEq/L Anion Gap (5-15) BUN (7-18) mg/dL Creatinine (0.55-1.02) mg/dL Est Cr Clr Drug Dosing mL/min Estimated GFR (MDRD) (>60) mL/min BUN/Creatinine Ratio (14-18) Glucose (83-115) mg/dL POC Glucose 310 H 233 H (83-110) mg/dL Lactic Acid (0.4-2.0) mmol/L Calcium (8.5-10.1) mg/dL Magnesium (1.8-2.4) mg/dl C-Reactive Protein (<1.0) mg/dL NT-Pro-B Natriuret Pep (0-450) pg/mL MRSA (PCR) Med Orders - Current: Current Medications Acetaminophen (Tylenol) 650 mg PO Q4H PRN PRN Reason: Pain (Mild 1-3)/fever Acetaminophen (Tylenol) 650 mg PO BID [facility] Last Admin: 08/12/17 09:01 Dose: 650 mg Aspirin (Halfprin) 81 mg PO DAILY [facility] Last Admin: 08/12/17 09:03 Dose: 81 mg Bisacodyl (Dulcolax) 5 mg PO DAILY PRN PRN Reason: Constipation Calcium Carbonate (Calcium Carbonate/Vitamin D 1500 Mg-200 Unit) 1 tab PO BIDMEALS [facility] Last Admin: 08/12/17 16:18 Dose: 1 tab Clopidogrel Bisulfate (Plavix) 75 mg PO DAILY [facility] Last Admin: 08/12/17 09:03 Dose: 75 mg Dextrose/Water (Dextrose 50% In Water) 50 ml IVPUSH ASDIRECTED PRN PRN Reason: Hypoglycemia Docusate Sodium (Colace) 100 mg PO BID PRN PRN Reason: Constipation Furosemide (Lasix) 60 mg PO DAILY@0700 [facility] Last Admin: 08/12/17 06:35 Dose: 60 mg Gabapentin (Neurontin) 300 mg PO TID [facility] Last Admin: 08/12/17 16:18 Dose: 300 mg Sodium Chloride (Normal Saline) 1,000 mls @ 100 mls/hr IV ASDIRECTED [facility] Stop: 08/13/17 07:44 Last Admin: 08/12/17 10:27 Dose: 100 mls/hr Levofloxacin/Dextrose 500 mg/ (Premix) 100 mls @ 100 mls/hr IV Q48H [facility] Insulin Aspart (Novolog) 0 unit SUBCUT QIDACANDBED [facility] PRN Reason: Protocol Last Admin: 08/12/17 17:18 Dose: 4 units Insulin Detemir (Levemir) 14 unit SUBCUT QPM [facility] Last Admin: 08/12/17 17:19 Dose: 14 units Insulin Detemir (Levemir) 26 unit SUBCUT QAM [facility] Last Admin: 08/12/17 08:56 Dose: 26 units Isosorbide Mononitrate (Imdur) 60 mg PO DAILY [facility] Last Admin: 08/12/17 09:01 Dose: 60 mg Lisinopril (Prinivil) 20 mg PO DAILY [facility] Last Admin: 08/12/17 09:02 Dose: 20 mg Methyl Salicylate (Analgesic [place]) 0 gm TOP BID PRN PRN Reason: PAIN Miscellaneous Information (Remove Patch) 0 ea TRDERM Q24H [facility] Pantoprazole Sodium (Protonix) 40 mg PO DAILY@0700 [facility] Last Admin: 08/12/17 06:35 Dose: 40 mg Potassium Chloride (Klor-Con 10) 10 meq PO BIDMEALS [facility] Last Admin: 08/12/17 16:18 Dose: 10 meq Primidone (Mysoline) 100 mg PO TID [facility] Last Admin: 08/12/17 16:18 Dose: 100 mg Rivastigmine (Exelon) 9.5 mg TOP Q24H [facility] Salsalate (Disalcid) 1,000 mg PO TID [facility] Last Admin: 08/12/17 16:17 Dose: 1,000 mg Senna/Docusate Sodium (Senna Plus) 1 tab PO BID PRN PRN Reason: Constipation Simvastatin (Zocor) 40 mg PO QPM [facility] Last Admin: 08/12/17 17:18 Dose: 40 mg Sodium Chloride (Saline Flush) 10 ml FLUSH ASDIRECTED PRN PRN Reason: Keep Vein Open Last Admin: 08/11/17 15:59 Dose: 10 ml Discontinued Medications Sodium Chloride (Normal Saline) 1,000 mls @ 1,000 mls/hr IV .BOLUS STA Stop: 08/11/17 16:41 Last Admin: 08/11/17 15:58 Dose: 1,000 mls/hr Levofloxacin/Dextrose 500 mg/ (Premix) 100 mls @ 100 mls/hr IV ONETIME ONE Stop: 08/11/17 18:31 Last Admin: 08/11/17 18:14 Dose: 100 mls/hr Sodium Chloride (Normal Saline) 1,600 mls @ 1,000 mls/hr IV ONETIME ONE Stop: 08/11/17 19:07 Last Admin: 08/11/17 17:36 Dose: 1,000 mls/hr Levofloxacin/Dextrose 500 mg/ (Premix) 100 mls @ 100 mls/hr IV Q24H [facility] Menthol (Perform Pain Reliever) 0 ml TP BID PRN PRN Reason: PAIN Non-Formulary Medication (Ca Carbonate/Vitamin D3/Vit K [Calcium + D Soft Chewable Tab]) 1 tab PO BID [facility] Ondansetron HCl (Zofran Odt) 4 mg PO Q6H PRN PRN Reason: nausea, able to take PO Ondansetron HCl (Zofran) 4 mg IV Q6H PRN PRN Reason: Nausea/Vomiting - My Orders Last 24 Hours: My Active Orders 08/11/17 20:56 Resuscitation Status Routine 08/12/17 07:00 Calcium Carbonate/Vitamin D3 [Calcium Carbonate/Vitamin D 1500 MG-200 Unit] 1 tab PO BIDMEALS 08/12/17 09:00 Remove Patch 0 ea TRDERM Q24H Rivastigmine [Exelon] 9.5 mg TOP Q24H 08/12/17 18:46 MG [MAGNESIUM] [CHEM] Stat 08/12/17 Breakfast ADA Diabetic [[employer] [employer] Diet] [DIET] - Plan Plan:: See above, continue current plan; will monitor progress, DC ~48 hours.
[2017-08-12] MEDS ORDERED: Albuterol/Ipratropium 3.0-0.5 MG/3 ML Neb Soln NEB PRN (13:47)
[2017-08-12] MEDS: Simvastatin 40 MG Tab PO SCH (17:18)
[2017-08-12] MEDS ORDERED: Levofloxacin/Dextrose 5%-Water 500 MG in Premix Bag 1 BAG IV SCH (18:00)
[2017-08-13] MEDS: Pantoprazole 40 MG Tab.CR PO SCH (06:33)
[2017-08-13] MEDS: Calcium Carbonate/Vitamin D3 1500 MG-200 Units Tab PO SCH ×2 (06:33→18:23)
[2017-08-13] MEDS: Potassium Chloride 10 MEQ Tab.ER PO SCH ×2 (06:33→18:23)
[2017-08-13] MEDS: Furosemide 20 MG Tab PO SCH (06:33)
[2017-08-13] MEDS: Insulin Aspart 100 Units/ML 3 ML Pen SUBCUT SCH ×4 (06:33→22:34)
[2017-08-13] MEDS: Acetaminophen 325 MG Tab PO SCH ×2 (08:22→22:33)
[2017-08-13] MEDS: Aspirin 81 MG Tab.EC PO SCH (08:23)
[2017-08-13] MEDS: Gabapentin 300 MG Cap PO SCH ×3 (08:23→22:33)
[2017-08-13] MEDS: Clopidogrel 75 MG Tab PO SCH (08:23)
[2017-08-13] MEDS: Primidone 50 MG Tab PO SCH ×3 (08:23→22:32)
[2017-08-13] MEDS: Lisinopril 20 MG Tab PO SCH (08:24)
[2017-08-13] MEDS: Isosorbide Mononitrate 60 MG Tab.ER PO SCH (08:24)
[2017-08-13] MEDS: Insulin Detemir 100 Units/ML 3 ML Pen SUBCUT SCH ×2 (08:24→18:23)
[2017-08-13] MEDS: RIVASTIGMINE 9.5 MG/24 HR TOP SCH ×2 (15:50→20:45)
--- NOTE | 2017-08-13 17:37 | PCM.PN ---
- General Info Date of Service: 08/13/17 Functional Status: Reports: Urinating - Review of Systems General: Reports: Weakness HEENT: Reports: No Symptoms Pulmonary: Reports: No Symptoms Cardiovascular: Reports: No Symptoms Gastrointestinal: Reports: No Symptoms Genitourinary: Reports: No Symptoms Musculoskeletal: Reports: No Symptoms Skin: Reports: No Symptoms Neurological: Reports: No Symptoms Psychiatric: Reports: No Symptoms - Patient Data Vitals - Most Recent: Last Vital Signs Temp 36.7 C 08/13/17 16:05 Pulse 58 L 08/13/17 16:05 Resp 14 08/13/17 16:04 BP 137/49 L 08/13/17 16:05 Pulse Ox 96 08/13/17 16:05 Weight - Most Recent: 68.039 kg I&O - Last 24 Hours: Intake & Output 08/13/17 08/13/17 08/13/17 06:59 14:59 22:59 Intake Total 1025 90 Output Total 450 Balance 575 90 Lab Results Last 24 Hours: Laboratory Results - last 24 hr 08/12/17 08/12/17 08/13/17 Range/Units 18:46 21:19 05:47 WBC 14.90 H (3.98-10.04) K/mm3 RBC 3.25 L (3.98-5.22) M/mm3 Hgb 10.6 L (11.2-15.7) gm/L Hct 33.0 L (34.1-44.9) % MCV 101.5 H (79.4-94.8) fl MCH 32.6 H (25.6-32.2) pg MCHC 32.1 L (32.2-35.5) g/dl RDW Std Deviation 48.9 H (36.4-46.3) fL Plt Count 324 (182-369) K/mm3 MPV 13.0 H (9.4-12.3) fl Neut % (Auto) 70.8 (34.0-71.1) % Lymph % (Auto) 16.0 L (19.3-51.7) % [place] % (Auto) 11.3 (4.7-12.5) % Eos % (Auto) 1.3 (0.7-5.8) Baso % (Auto) 0.3 (0.1-1.2) % Neut # (Auto) 10.55 H (1.56-6.13) K/mm3 Lymph # (Auto) 2.38 (1.18-3.74) K/mm3 [place] # (Auto) 1.68 H (0.24-0.36) K/mm3 Eos # (Auto) 0.20 (0.04-0.36) K/mm3 Baso # (Auto) 0.04 (0.01-0.08) K/mm3 Manual Slide Review Normal smear Sodium (136-145) mEq/L Potassium (3.5-5.1) mEq/L Chloride (98-107) mEq/L Carbon Dioxide (21-32) mEq/L Anion Gap (5-15) BUN (7-18) mg/dL Creatinine (0.55-1.02) mg/dL Est Cr Clr Drug Dosing mL/min Estimated GFR (MDRD) (>60) mL/min BUN/Creatinine Ratio (14-18) Glucose (83-115) mg/dL POC Glucose 242 H (83-110) mg/dL Calcium (8.5-10.1) mg/dL Magnesium 2.0 (1.8-2.4) mg/dl C-Reactive Protein (<1.0) mg/dL 08/13/17 08/13/17 08/13/17 Range/Units 05:47 06:31 11:07 WBC (3.98-10.04) K/mm3 RBC (3.98-5.22) M/mm3 Hgb (11.2-15.7) gm/L Hct (34.1-44.9) % MCV (79.4-94.8) fl MCH (25.6-32.2) pg MCHC (32.2-35.5) g/dl RDW Std Deviation (36.4-46.3) fL Plt Count (182-369) K/mm3 MPV (9.4-12.3) fl Neut % (Auto) (34.0-71.1) % Lymph % (Auto) (19.3-51.7) % [place] % (Auto) (4.7-12.5) % Eos % (Auto) (0.7-5.8) Baso % (Auto) (0.1-1.2) % Neut # (Auto) (1.56-6.13) K/mm3 Lymph # (Auto) (1.18-3.74) K/mm3 [place] # (Auto) (0.24-0.36) K/mm3 Eos # (Auto) (0.04-0.36) K/mm3 Baso # (Auto) (0.01-0.08) K/mm3 Manual Slide Review Sodium 141 (136-145) mEq/L Potassium 4.0 (3.5-5.1) mEq/L Chloride 107 (98-107) mEq/L Carbon Dioxide 23 (21-32) mEq/L Anion Gap 15.0 (5-15) BUN 35 H (7-18) mg/dL Creatinine 1.3 H (0.55-1.02) mg/dL Est Cr Clr Drug Dosing 24.11 mL/min Estimated GFR (MDRD) 39 (>60) mL/min BUN/Creatinine Ratio 26.9 H (14-18) Glucose 133 H (83-115) mg/dL POC Glucose 190 H 229 H (83-110) mg/dL Calcium 7.5 L (8.5-10.1) mg/dL Magnesium 2.0 (1.8-2.4) mg/dl C-Reactive Protein 23.1 H* (<1.0) mg/dL 08/13/17 08/13/17 Range/Units 11:43 16:49 WBC (3.98-10.04) K/mm3 RBC (3.98-5.22) M/mm3 Hgb (11.2-15.7) gm/L Hct (34.1-44.9) % MCV (79.4-94.8) fl MCH (25.6-32.2) pg MCHC (32.2-35.5) g/dl RDW Std Deviation (36.4-46.3) fL Plt Count (182-369) K/mm3 MPV (9.4-12.3) fl Neut % (Auto) (34.0-71.1) % Lymph % (Auto) (19.3-51.7) % [place] % (Auto) (4.7-12.5) % Eos % (Auto) (0.7-5.8) Baso % (Auto) (0.1-1.2) % Neut # (Auto) (1.56-6.13) K/mm3 Lymph # (Auto) (1.18-3.74) K/mm3 [place] # (Auto) (0.24-0.36) K/mm3 Eos # (Auto) (0.04-0.36) K/mm3 Baso # (Auto) (0.01-0.08) K/mm3 Manual Slide Review Sodium (136-145) mEq/L Potassium (3.5-5.1) mEq/L Chloride (98-107) mEq/L Carbon Dioxide (21-32) mEq/L Anion Gap (5-15) BUN (7-18) mg/dL Creatinine (0.55-1.02) mg/dL Est Cr Clr Drug Dosing mL/min Estimated GFR (MDRD) (>60) mL/min BUN/Creatinine Ratio (14-18) Glucose (83-115) mg/dL POC Glucose 231 H 176 H (83-110) mg/dL Calcium (8.5-10.1) mg/dL Magnesium (1.8-2.4) mg/dl C-Reactive Protein (<1.0) mg/dL Med Orders - Current: Current Medications Acetaminophen (Tylenol) 650 mg PO Q4H PRN PRN Reason: Pain (Mild 1-3)/fever Acetaminophen (Tylenol) 650 mg PO BID [facility] Last Admin: 08/13/17 08:22 Dose: 650 mg Aspirin (Halfprin) 81 mg PO DAILY [facility] Last Admin: 08/13/17 08:23 Dose: 81 mg Bisacodyl (Dulcolax) 5 mg PO DAILY PRN PRN Reason: Constipation Calcium Carbonate (Calcium Carbonate/Vitamin D 1500 Mg-200 Unit) 1 tab PO BIDMEALS [facility] Last Admin: 08/13/17 06:33 Dose: 1 tab Clopidogrel Bisulfate (Plavix) 75 mg PO DAILY [facility] Last Admin: 08/13/17 08:23 Dose: 75 mg Dextrose/Water (Dextrose 50% In Water) 50 ml IVPUSH ASDIRECTED PRN PRN Reason: Hypoglycemia Docusate Sodium (Colace) 100 mg PO BID PRN PRN Reason: Constipation Furosemide (Lasix) 60 mg PO DAILY@0700 [facility] Last Admin: 08/13/17 06:33 Dose: 60 mg Gabapentin (Neurontin) 300 mg PO TID [facility] Last Admin: 08/13/17 14:59 Dose: 300 mg Levofloxacin/Dextrose 500 mg/ (Premix) 100 mls @ 100 mls/hr IV Q48H [facility] Insulin Aspart (Novolog) 0 unit SUBCUT QIDACANDBED [facility] PRN Reason: Protocol Last Admin: 08/13/17 11:09 Dose: 4 units Insulin Detemir (Levemir) 14 unit SUBCUT QPM [facility] Last Admin: 08/12/17 17:19 Dose: 14 units Insulin Detemir (Levemir) 26 unit SUBCUT QAM [facility] Last Admin: 08/13/17 08:24 Dose: 26 units Isosorbide Mononitrate (Imdur) 60 mg PO DAILY [facility] Last Admin: 08/13/17 08:24 Dose: 60 mg Lisinopril (Prinivil) 20 mg PO DAILY [facility] Last Admin: 08/13/17 08:24 Dose: 20 mg Methyl Salicylate (Analgesic [place]) 0 gm TOP BID PRN PRN Reason: PAIN Miscellaneous Information (Remove Patch) 0 ea TRDERM Q24H [facility] Last Admin: 08/13/17 10:06 Dose: Not Given Pantoprazole Sodium (Protonix) 40 mg PO DAILY@0700 [facility] Last Admin: 08/13/17 06:33 Dose: 40 mg Potassium Chloride (Klor-Con 10) 10 meq PO BIDMEALS [facility] Last Admin: 08/13/17 06:33 Dose: 10 meq Primidone (Mysoline) 100 mg PO TID [facility] Last Admin: 08/13/17 14:59 Dose: 100 mg Rivastigmine (Exelon) 9.5 mg TOP Q24H [facility] Last Admin: 08/13/17 15:50 Dose: Not Given Salsalate (Disalcid) 1,000 mg PO TID [facility] Last Admin: 08/13/17 14:59 Dose: 1,000 mg Senna/Docusate Sodium (Senna Plus) 1 tab PO BID PRN PRN Reason: Constipation Simvastatin (Zocor) 40 mg PO QPM [facility] Last Admin: 08/12/17 17:18 Dose: 40 mg Sodium Chloride (Saline Flush) 10 ml FLUSH ASDIRECTED PRN PRN Reason: Keep Vein Open Last Admin: 08/11/17 15:59 Dose: 10 ml Discontinued Medications Sodium Chloride (Normal Saline) 1,000 mls @ 1,000 mls/hr IV .BOLUS STA Stop: 08/11/17 16:41 Last Admin: 08/11/17 15:58 Dose: 1,000 mls/hr Levofloxacin/Dextrose 500 mg/ (Premix) 100 mls @ 100 mls/hr IV ONETIME ONE Stop: 08/11/17 18:31 Last Admin: 08/11/17 18:14 Dose: 100 mls/hr Sodium Chloride (Normal Saline) 1,600 mls @ 1,000 mls/hr IV ONETIME ONE Stop: 08/11/17 19:07 Last Admin: 08/11/17 17:36 Dose: 1,000 mls/hr Levofloxacin/Dextrose 500 mg/ (Premix) 100 mls @ 100 mls/hr IV Q24H [facility] Sodium Chloride (Normal Saline) 1,000 mls @ 100 mls/hr IV ASDIRECTED [facility] Stop: 08/13/17 07:44 Last Admin: 08/12/17 10:27 Dose: 100 mls/hr Menthol (Perform Pain Reliever) 0 ml TP BID PRN PRN Reason: PAIN Non-Formulary Medication (Ca Carbonate/Vitamin D3/Vit K [Calcium + D Soft Chewable Tab]) 1 tab PO BID [facility] Ondansetron HCl (Zofran Odt) 4 mg PO Q6H PRN PRN Reason: nausea, able to take PO Ondansetron HCl (Zofran) 4 mg IV Q6H PRN PRN Reason: Nausea/Vomiting - Exam Quality Assessment: DVT Prophylaxis General: Alert, Oriented, Cooperative HEENT: Pupils Reactive, EOMI Neck: Supple, No JVD Lungs: Normal Respiratory Effort Cardiovascular: Regular Rate GI/Abdominal Exam: Normal Bowel Sounds, Soft, Non-Tender, No Organomegaly, No Distention (Female) Exam: Deferred Back Exam: Normal Inspection Extremities: Normal Inspection, Normal Range of Motion, Non-Tender, No Pedal Edema Skin: Warm Neurological: No New Focal Deficit Psy/Mental Status: Alert - Problem List Review Problem List Initiated/Reviewed/Updated: Yes - Plan Plan:: Acute: UTI -Presented to ED with increased confusion, malaise, and weakness. -HX/o recurrent UTI's -Afrbrile -Normotensive, HR WNL -UA in ED positive for UTI -Lactic acid 1.4-->0.6 -WBC 19.91-->17.94 -Levaquin 500mg given in ED - continue on floor, would increase however kidney function is diminished... -She is alert on floor and answers questions appropriately, although some mild confusion -Urine cultures - gram negative rods, sensitivity pending -Blood cultures - gram negative rods, sensitivity pending Renal insufficiency, improving -Acute on chronic -BUN 77-->50 -Creatinine 2.7-->1.6 -eGFR 17-->30 -ED provider reports baseline creatinine appears to be 1.5-1.7 -In reviewing old charts it appears eGRF is usually around mid 40's. -Pt. given multiple fluid boluses in ED -Fluids ordered here, monitor for fluid overload Dehydration, improved -Anion gap 17.0-->15.3 -Kidney function as above -Fluids as above Chronic: Type II DM - home levemir and medium dose sliding scale insulin per protocol HLD HTN - stable Recurrent UTIs Arthritis Osteoporosis Hx/o CVA Hx/o Coronary artery bypass Plan: Daily labs Home meds IV ATBs DVT/GI prophylaxis CM/SW for discharge planning PT/OT
[2017-08-13] MEDS ORDERED: Levofloxacin/Dextrose 5%-Water 500 MG in Premix Bag 1 BAG IV SCH (18:00)
[2017-08-13] MEDS: Simvastatin 40 MG Tab PO SCH (18:23)
[2017-08-13] MEDS ORDERED: Levofloxacin/Dextrose 5%-Water 500 MG in Premix Bag 1 BAG IV ONE (19:15)
[2017-08-14] MEDS: Furosemide 20 MG Tab PO SCH (06:36)
[2017-08-14] MEDS: Potassium Chloride 10 MEQ Tab.ER PO SCH ×2 (06:37→17:15)
[2017-08-14] MEDS: Calcium Carbonate/Vitamin D3 1500 MG-200 Units Tab PO SCH ×2 (06:37→17:14)
[2017-08-14] MEDS: Pantoprazole 40 MG Tab.CR PO SCH (06:37)
[2017-08-14] MEDS: Insulin Aspart 100 Units/ML 3 ML Pen SUBCUT SCH ×4 (09:17→21:44)
[2017-08-14] MEDS: Insulin Detemir 100 Units/ML 3 ML Pen SUBCUT SCH ×2 (09:18→17:18)
[2017-08-14] MEDS: RIVASTIGMINE 9.5 MG/24 HR TOP SCH (09:51)
[2017-08-14] MEDS: Aspirin 81 MG Tab.EC PO SCH (09:52)
[2017-08-14] MEDS: Primidone 50 MG Tab PO SCH ×3 (09:52→20:44)
[2017-08-14] MEDS: Lisinopril 20 MG Tab PO SCH (09:52)
[2017-08-14] MEDS: Clopidogrel 75 MG Tab PO SCH (09:52)
[2017-08-14] MEDS: Gabapentin 300 MG Cap PO SCH ×3 (09:52→20:44)
[2017-08-14] MEDS: Acetaminophen 325 MG Tab PO SCH ×2 (09:53→20:46)
[2017-08-14] MEDS: Isosorbide Mononitrate 60 MG Tab.ER PO SCH (09:53)
--- NOTE | 2017-08-14 13:52 | PCM.PN ---
- General Info Date of Service: 08/14/17 Functional Status: Reports: Tolerating Diet, Urinating - Review of Systems General: Reports: Weakness HEENT: Reports: No Symptoms Pulmonary: Reports: No Symptoms Cardiovascular: Reports: No Symptoms Gastrointestinal: Reports: No Symptoms Genitourinary: Reports: No Symptoms Musculoskeletal: Reports: No Symptoms Skin: Reports: No Symptoms Neurological: Reports: No Symptoms Psychiatric: Reports: No Symptoms - Patient Data Vitals - Most Recent: Last Vital Signs Temp 36.8 C 08/14/17 12:29 Pulse 57 L 08/14/17 12:29 Resp 18 08/14/17 09:45 BP 124/39 L 08/14/17 12:29 Pulse Ox 93 L 08/14/17 12:29 Weight - Most Recent: 68.901 kg I&O - Last 24 Hours: Intake & Output 08/13/17 08/14/17 08/14/17 22:59 06:59 14:59 Intake Total 1180 500 100 Output Total 550 450 Balance 630 50 100 Lab Results Last 24 Hours: Laboratory Results - last 24 hr 08/13/17 08/13/17 08/14/17 Range/Units 16:49 21:40 05:31 WBC 13.73 H (3.98-10.04) K/mm3 RBC 3.48 L (3.98-5.22) M/mm3 Hgb 11.2 (11.2-15.7) gm/L Hct 34.9 (34.1-44.9) % MCV 100.3 H (79.4-94.8) fl MCH 32.2 (25.6-32.2) pg MCHC 32.1 L (32.2-35.5) g/dl RDW Std Deviation 48.2 H (36.4-46.3) fL Plt Count 358 (182-369) K/mm3 MPV 13.1 H (9.4-12.3) fl Neut % (Auto) 69.5 (34.0-71.1) % Lymph % (Auto) 17.5 L (19.3-51.7) % [place] % (Auto) 11.1 (4.7-12.5) % Eos % (Auto) 1.4 (0.7-5.8) Baso % (Auto) 0.3 (0.1-1.2) % Neut # (Auto) 9.55 H (1.56-6.13) K/mm3 Lymph # (Auto) 2.40 (1.18-3.74) K/mm3 [place] # (Auto) 1.52 H (0.24-0.36) K/mm3 Eos # (Auto) 0.19 (0.04-0.36) K/mm3 Baso # (Auto) 0.04 (0.01-0.08) K/mm3 Manual Slide Review Abnormal smear Sodium (136-145) mEq/L Potassium (3.5-5.1) mEq/L Chloride (98-107) mEq/L Carbon Dioxide (21-32) mEq/L Anion Gap (5-15) BUN (7-18) mg/dL Creatinine (0.55-1.02) mg/dL Est Cr Clr Drug Dosing mL/min Estimated GFR (MDRD) (>60) mL/min BUN/Creatinine Ratio (14-18) Glucose (83-115) mg/dL POC Glucose 176 H 176 H (83-110) mg/dL Calcium (8.5-10.1) mg/dL Magnesium (1.8-2.4) mg/dl C-Reactive Protein (<1.0) mg/dL 08/14/17 08/14/17 08/14/17 Range/Units 05:31 06:13 11:51 WBC (3.98-10.04) K/mm3 RBC (3.98-5.22) M/mm3 Hgb (11.2-15.7) gm/L Hct (34.1-44.9) % MCV (79.4-94.8) fl MCH (25.6-32.2) pg MCHC (32.2-35.5) g/dl RDW Std Deviation (36.4-46.3) fL Plt Count (182-369) K/mm3 MPV (9.4-12.3) fl Neut % (Auto) (34.0-71.1) % Lymph % (Auto) (19.3-51.7) % [place] % (Auto) (4.7-12.5) % Eos % (Auto) (0.7-5.8) Baso % (Auto) (0.1-1.2) % Neut # (Auto) (1.56-6.13) K/mm3 Lymph # (Auto) (1.18-3.74) K/mm3 [place] # (Auto) (0.24-0.36) K/mm3 Eos # (Auto) (0.04-0.36) K/mm3 Baso # (Auto) (0.01-0.08) K/mm3 Manual Slide Review Sodium 140 (136-145) mEq/L Potassium 4.1 (3.5-5.1) mEq/L Chloride 107 (98-107) mEq/L Carbon Dioxide 24 (21-32) mEq/L Anion Gap 13.1 (5-15) BUN 30 H (7-18) mg/dL Creatinine 1.2 H (0.55-1.02) mg/dL Est Cr Clr Drug Dosing 26.12 mL/min Estimated GFR (MDRD) 42 (>60) mL/min BUN/Creatinine Ratio 25.0 H (14-18) Glucose 160 H (83-115) mg/dL POC Glucose 203 H 240 H (83-110) mg/dL Calcium 8.1 L (8.5-10.1) mg/dL Magnesium 2.0 (1.8-2.4) mg/dl C-Reactive Protein 17.9 H* (<1.0) mg/dL Med Orders - Current: Current Medications Acetaminophen (Tylenol) 650 mg PO Q4H PRN PRN Reason: Pain (Mild 1-3)/fever Acetaminophen (Tylenol) 650 mg PO BID [facility] Last Admin: 08/14/17 09:53 Dose: 650 mg Aspirin (Halfprin) 81 mg PO DAILY [facility] Last Admin: 08/14/17 09:52 Dose: 81 mg Bisacodyl (Dulcolax) 5 mg PO DAILY PRN PRN Reason: Constipation Calcium Carbonate (Calcium Carbonate/Vitamin D 1500 Mg-200 Unit) 1 tab PO BIDMEALS [facility] Last Admin: 08/14/17 06:37 Dose: 1 tab Clopidogrel Bisulfate (Plavix) 75 mg PO DAILY [facility] Last Admin: 08/14/17 09:52 Dose: 75 mg Dextrose/Water (Dextrose 50% In Water) 50 ml IVPUSH ASDIRECTED PRN PRN Reason: Hypoglycemia Docusate Sodium (Colace) 100 mg PO BID PRN PRN Reason: Constipation Furosemide (Lasix) 60 mg PO DAILY@0700 [facility] Last Admin: 08/14/17 06:36 Dose: 60 mg Gabapentin (Neurontin) 300 mg PO TID [facility] Last Admin: 08/14/17 09:52 Dose: 300 mg Ceftriaxone Sodium 2 gm/ (Sodium Chloride) 100 mls @ 200 mls/hr IV Q24H [facility] Insulin Aspart (Novolog) 0 unit SUBCUT QIDACANDBED [facility] PRN Reason: Protocol Last Admin: 08/14/17 12:50 Dose: 4 units Insulin Detemir (Levemir) 14 unit SUBCUT QPM [facility] Last Admin: 08/13/17 18:23 Dose: 14 units Insulin Detemir (Levemir) 26 unit SUBCUT QAM [facility] Last Admin: 08/14/17 09:18 Dose: 26 units Isosorbide Mononitrate (Imdur) 60 mg PO DAILY [facility] Last Admin: 08/14/17 09:53 Dose: 60 mg Lisinopril (Prinivil) 20 mg PO DAILY [facility] Last Admin: 08/14/17 09:52 Dose: 20 mg Methyl Salicylate (Analgesic [place]) 0 gm TOP BID PRN PRN Reason: PAIN Miscellaneous Information (Remove Patch) 0 ea TRDERM Q24H [facility] Last Admin: 08/14/17 09:53 Dose: Not Given Pantoprazole Sodium (Protonix) 40 mg PO DAILY@0700 [facility] Last Admin: 08/14/17 06:37 Dose: 40 mg Potassium Chloride (Klor-Con 10) 10 meq PO BIDMEALS [facility] Last Admin: 08/14/17 06:37 Dose: 10 meq Primidone (Mysoline) 100 mg PO TID [facility] Last Admin: 08/14/17 09:52 Dose: 100 mg Rivastigmine (Exelon) 9.5 mg TOP Q24H [facility] Last Admin: 08/14/17 09:51 Dose: 9.5 mg Salsalate (Disalcid) 1,000 mg PO TID [facility] Last Admin: 08/14/17 09:51 Dose: 1,000 mg Senna/Docusate Sodium (Senna Plus) 1 tab PO BID PRN PRN Reason: Constipation Simvastatin (Zocor) 40 mg PO QPM [facility] Last Admin: 08/13/17 18:23 Dose: 40 mg Sodium Chloride (Saline Flush) 10 ml FLUSH ASDIRECTED PRN PRN Reason: Keep Vein Open Last Admin: 08/11/17 15:59 Dose: 10 ml Discontinued Medications Sodium Chloride (Normal Saline) 1,000 mls @ 1,000 mls/hr IV .BOLUS STA Stop: 08/11/17 16:41 Last Admin: 08/11/17 15:58 Dose: 1,000 mls/hr Levofloxacin/Dextrose 500 mg/ (Premix) 100 mls @ 100 mls/hr IV ONETIME ONE Stop: 08/11/17 18:31 Last Admin: 08/11/17 18:14 Dose: 100 mls/hr Sodium Chloride (Normal Saline) 1,600 mls @ 1,000 mls/hr IV ONETIME ONE Stop: 08/11/17 19:07 Last Admin: 08/11/17 17:36 Dose: 1,000 mls/hr Levofloxacin/Dextrose 500 mg/ (Premix) 100 mls @ 100 mls/hr IV Q24H [facility] Sodium Chloride (Normal Saline) 1,000 mls @ 100 mls/hr IV ASDIRECTED [facility] Stop: 08/13/17 07:44 Last Admin: 08/12/17 10:27 Dose: 100 mls/hr Levofloxacin/Dextrose 500 mg/ (Premix) 100 mls @ 100 mls/hr IV Q48H [facility] Last Admin: 08/13/17 20:03 Dose: Not Given Levofloxacin/Dextrose 500 mg/ (Premix) 100 mls @ 100 mls/hr IV ONETIME ONE Stop: 08/13/17 20:14 Last Admin: 08/13/17 19:25 Dose: 100 mls/hr Menthol (Perform Pain Reliever) 0 ml TP BID PRN PRN Reason: PAIN Non-Formulary Medication (Ca Carbonate/Vitamin D3/Vit K [Calcium + D Soft Chewable Tab]) 1 tab PO BID [facility] Ondansetron HCl (Zofran Odt) 4 mg PO Q6H PRN PRN Reason: nausea, able to take PO Ondansetron HCl (Zofran) 4 mg IV Q6H PRN PRN Reason: Nausea/Vomiting - Exam Quality Assessment: Supplemental Oxygen, DVT Prophylaxis General: Alert, Oriented, Cooperative, No Acute Distress HEENT: Pupils Equal, Pupils Reactive, EOMI Neck: Supple, Trachea Midline Lungs: Normal Respiratory Effort, Decreased Breath Sounds Cardiovascular: Regular Rate, Regular Rhythm GI/Abdominal Exam: Normal Bowel Sounds, Soft, Non-Tender, No Organomegaly, No Distention (Female) Exam: Deferred Back Exam: Normal Inspection Extremities: Normal Inspection Skin: Warm Neurological: No New Focal Deficit Psy/Mental Status: Alert, Normal Affect, Normal Mood - Problem List Review Problem List Initiated/Reviewed/Updated: Yes - My Orders Last 24 Hours: My Active Orders 08/14/17 13:45 [id number] [Rocephin] 2 gm Sodium Chloride 0.9% [Normal Saline] 100 ml IV Q24H - Plan Plan:: Acute: UTI -Presented to ED with increased confusion, malaise, and weakness. -HX/o recurrent UTI's -Afrbrile -Normotensive, HR WNL -UA in ED positive for UTI -Lactic acid 1.4-->0.6 -WBC 19.91-->17.94 -Formerly on Levoquin, started on Rocephin based on C/S. Renal insufficiency, improving -Acute on chronic -BUN 77-->50 -Creatinine 2.7-->1.6 -eGFR 17-->30 -ED provider reports baseline creatinine appears to be 1.5-1.7 -In reviewing old charts it appears eGRF is usually around mid 40's. -Pt. given multiple fluid boluses in ED -Fluids ordered here, monitor for fluid overload Dehydration, improved -Anion gap 17.0-->15.3 -Kidney function as above -Fluids as above Chronic: Type II DM - home levemir and medium dose sliding scale insulin per protocol HLD HTN - stable Recurrent UTIs Arthritis Osteoporosis Hx/o CVA Hx/o Coronary artery bypass Plan: Daily labs Home meds IV ATBs DVT/GI prophylaxis CM/SW for discharge planning PT/OT LOS>96 hours IV ATB adjusted with slow response to therapy.
[2017-08-14] MEDS ORDERED: cefTRIAXone 2 GM in Sodium Chloride 0.9% 100 ML IV SCH (14:00)
[2017-08-14] MEDS: Simvastatin 40 MG Tab PO SCH (17:17)
[2017-08-15] MEDS: Potassium Chloride 10 MEQ Tab.ER PO SCH ×2 (06:29→17:41)
[2017-08-15] MEDS: Calcium Carbonate/Vitamin D3 1500 MG-200 Units Tab PO SCH ×2 (06:29→17:40)
[2017-08-15] MEDS: Furosemide 20 MG Tab PO SCH (06:29)
[2017-08-15] MEDS: Insulin Aspart 100 Units/ML 3 ML Pen SUBCUT SCH ×4 (06:30→22:21)
[2017-08-15] MEDS: Pantoprazole 40 MG Tab.CR PO SCH (06:30)
[2017-08-15] MEDS: Insulin Detemir 100 Units/ML 3 ML Pen SUBCUT SCH ×2 (08:08→17:42)
[2017-08-15] MEDS: RIVASTIGMINE 9.5 MG/24 HR TOP SCH (08:10)
[2017-08-15] MEDS: Primidone 50 MG Tab PO SCH ×3 (08:12→22:21)
[2017-08-15] MEDS: Isosorbide Mononitrate 60 MG Tab.ER PO SCH (08:12)
[2017-08-15] MEDS: Aspirin 81 MG Tab.EC PO SCH (08:12)
[2017-08-15] MEDS: Lisinopril 20 MG Tab PO SCH (08:13)
[2017-08-15] MEDS: Gabapentin 300 MG Cap PO SCH ×3 (08:13→22:19)
[2017-08-15] MEDS: Clopidogrel 75 MG Tab PO SCH (08:13)
[2017-08-15] MEDS: Acetaminophen 325 MG Tab PO SCH ×2 (08:14→22:20)
--- NOTE | 2017-08-15 13:34 | PCM.PN ---
- General Info Date of Service: 08/15/17 Subjective Update: DOING VERY WELL HAVE NO NEW COMPLAINTS Functional Status: Reports: Pain Controlled - Review of Systems General: Reports: No Symptoms HEENT: Reports: No Symptoms Pulmonary: Reports: No Symptoms Cardiovascular: Reports: No Symptoms Gastrointestinal: Reports: No Symptoms Genitourinary: Reports: No Symptoms Musculoskeletal: Reports: No Symptoms Skin: Reports: No Symptoms Neurological: Reports: No Symptoms - Patient Data Vitals - Most Recent: Last Vital Signs Temp 98.8 F 08/15/17 07:36 Pulse 66 08/15/17 07:36 Resp 19 08/15/17 07:36 BP 152/79 H 08/15/17 08:13 Pulse Ox 94 L 08/15/17 07:36 Weight - Most Recent: 149 lb 8 oz I&O - Last 24 Hours: Intake & Output 08/14/17 08/15/17 08/15/17 22:59 06:59 14:59 Intake Total 770 800 Output Total 1200 500 Balance -430 300 Lab Results Last 24 Hours: Laboratory Results - last 24 hr 08/14/17 08/14/17 08/15/17 Range/Units 17:13 21:19 06:17 WBC (3.98-10.04) K/mm3 RBC (3.98-5.22) M/mm3 Hgb (11.2-15.7) gm/L Hct (34.1-44.9) % MCV (79.4-94.8) fl MCH (25.6-32.2) pg MCHC (32.2-35.5) g/dl RDW Std Deviation (36.4-46.3) fL Plt Count (182-369) K/mm3 MPV (9.4-12.3) fl Neut % (Auto) (34.0-71.1) % Lymph % (Auto) (19.3-51.7) % [place] % (Auto) (4.7-12.5) % Eos % (Auto) (0.7-5.8) Baso % (Auto) (0.1-1.2) % Neut # (Auto) (1.56-6.13) K/mm3 Lymph # (Auto) (1.18-3.74) K/mm3 [place] # (Auto) (0.24-0.36) K/mm3 Eos # (Auto) (0.04-0.36) K/mm3 Baso # (Auto) (0.01-0.08) K/mm3 Manual Slide Review Sodium (136-145) mEq/L Potassium (3.5-5.1) mEq/L Chloride (98-107) mEq/L Carbon Dioxide (21-32) mEq/L Anion Gap (5-15) BUN (7-18) mg/dL Creatinine (0.55-1.02) mg/dL Est Cr Clr Drug Dosing mL/min Estimated GFR (MDRD) (>60) mL/min BUN/Creatinine Ratio (14-18) Glucose (83-115) mg/dL POC Glucose 205 H 130 H 74 L (83-110) mg/dL Calcium (8.5-10.1) mg/dL Magnesium (1.8-2.4) mg/dl C-Reactive Protein (<1.0) mg/dL 08/15/17 08/15/17 08/15/17 Range/Units 06:18 06:18 11:13 WBC 15.86 H (3.98-10.04) K/mm3 RBC 3.69 L (3.98-5.22) M/mm3 Hgb 11.9 (11.2-15.7) gm/L Hct 36.8 (34.1-44.9) % MCV 99.7 H (79.4-94.8) fl MCH 32.2 (25.6-32.2) pg MCHC 32.3 (32.2-35.5) g/dl RDW Std Deviation 48.2 H (36.4-46.3) fL Plt Count 389 H (182-369) K/mm3 MPV 12.6 H (9.4-12.3) fl Neut % (Auto) 71.3 H (34.0-71.1) % Lymph % (Auto) 18.3 L (19.3-51.7) % [place] % (Auto) 8.7 (4.7-12.5) % Eos % (Auto) 1.0 (0.7-5.8) Baso % (Auto) 0.4 (0.1-1.2) % Neut # (Auto) 11.31 H (1.56-6.13) K/mm3 Lymph # (Auto) 2.90 (1.18-3.74) K/mm3 [place] # (Auto) 1.38 H (0.24-0.36) K/mm3 Eos # (Auto) 0.16 (0.04-0.36) K/mm3 Baso # (Auto) 0.06 (0.01-0.08) K/mm3 Manual Slide Review Abnormal smear Sodium 142 (136-145) mEq/L Potassium 4.2 (3.5-5.1) mEq/L Chloride 108 H (98-107) mEq/L Carbon Dioxide 25 (21-32) mEq/L Anion Gap 13.2 (5-15) BUN 31 H (7-18) mg/dL Creatinine 1.2 H (0.55-1.02) mg/dL Est Cr Clr Drug Dosing 26.12 mL/min Estimated GFR (MDRD) 42 (>60) mL/min BUN/Creatinine Ratio 25.8 H (14-18) Glucose 79 L (83-115) mg/dL POC Glucose 285 H (83-110) mg/dL Calcium 8.7 (8.5-10.1) mg/dL Magnesium 2.2 (1.8-2.4) mg/dl C-Reactive Protein 14.9 H* (<1.0) mg/dL Med Orders - Current: Current Medications Acetaminophen (Tylenol) 650 mg PO Q4H PRN PRN Reason: Pain (Mild 1-3)/fever Acetaminophen (Tylenol) [address] [facility] Last Admin: 08/15/17 08:14 Dose: 650 mg Aspirin (Halfprin) [address] [facility] Last Admin: 08/15/17 08:12 Dose: 81 mg Bisacodyl (Dulcolax) 5 mg PO DAILY PRN PRN Reason: Constipation Calcium Carbonate (Calcium Carbonate/Vitamin D 1500 Mg-200 Unit) [address] [facility] Last Admin: 08/15/17 06:29 Dose: 1 tab Cephalexin (Keflex) [address] [facility] Clopidogrel Bisulfate (Plavix) [address] [facility] Last Admin: 08/15/17 08:13 Dose: 75 mg Dextrose/Water (Dextrose 50% In Water) 50 ml IVPUSH ASDIRECTED PRN PRN Reason: Hypoglycemia Docusate Sodium (Colace) 100 mg PO BID PRN PRN Reason: Constipation Furosemide (Lasix) 60 mg PO DAILY@0700 [facility] Last Admin: 08/15/17 06:29 Dose: 60 mg Gabapentin (Neurontin) [address] [facility] Last Admin: 08/15/17 08:13 Dose: 300 mg Insulin Aspart (Novolog) [address] [facility] PRN Reason: Protocol Last Admin: 08/15/17 12:42 Dose: 6 units Insulin Detemir (Levemir) [address] [facility] Last Admin: 08/14/17 17:18 Dose: 14 units Insulin Detemir (Levemir) [address] [facility] Last Admin: 08/15/17 08:08 Dose: 26 units Isosorbide Mononitrate (Imdur) [address] [facility] Last Admin: 08/15/17 08:12 Dose: 60 mg Lisinopril (Prinivil) [address] [facility] Last Admin: 08/15/17 08:13 Dose: 20 mg Methyl Salicylate (Analgesic [place]) 0 gm TOP BID PRN PRN Reason: PAIN Last Admin: 08/14/17 14:58 Dose: 1 applic Miscellaneous Information (Remove Patch) [address] [facility] Last Admin: 08/15/17 08:13 Dose: 1 ea Pantoprazole Sodium (Protonix) 40 mg PO DAILY@0700 [facility] Last Admin: 08/15/17 06:30 Dose: 40 mg Potassium Chloride (Klor-Con 10) [address] [facility] Last Admin: 08/15/17 06:29 Dose: 10 meq Primidone (Mysoline) [address] [facility] Last Admin: 08/15/17 08:12 Dose: 100 mg Rivastigmine (Exelon) 9.[address] [facility] Last Admin: 08/15/17 08:10 Dose: 9.5 mg Salsalate (Disalcid) 1,[address] [facility] Last Admin: 08/15/17 08:09 Dose: 1,000 mg Senna/Docusate Sodium (Senna Plus) 1 tab PO BID PRN PRN Reason: Constipation Simvastatin (Zocor) [address] [facility] Last Admin: 08/14/17 17:17 Dose: 40 mg Sodium Chloride (Saline Flush) 10 ml FLUSH ASDIRECTED PRN PRN Reason: Keep Vein Open Last Admin: 08/11/17 15:59 Dose: 10 ml Discontinued Medications Sodium Chloride (Normal Saline) 1,000 mls @ 1,000 mls/hr IV .BOLUS STA Stop: 08/11/17 16:41 Last Admin: 08/11/17 15:58 Dose: 1,000 mls/hr Levofloxacin/Dextrose 500 mg/ (Premix) 100 mls @ 100 mls/hr IV ONETIME ONE Stop: 08/11/17 18:31 Last Admin: 08/11/17 18:14 Dose: 100 mls/hr Sodium Chloride (Normal Saline) 1,600 mls @ 1,000 mls/hr IV ONETIME ONE Stop: 08/11/17 19:07 Last Admin: 08/11/17 17:36 Dose: 1,000 mls/hr Levofloxacin/Dextrose 500 mg/ (Premix) 100 mls @ 100 mls/hr IV Q24H [facility] Sodium Chloride (Normal Saline) 1,000 mls @ 100 mls/hr IV ASDIRECTED [facility]RIAN Stop: 08/13/17 07:44 Last Admin: 08/12/17 10:27 Dose: 100 mls/hr Levofloxacin/Dextrose 500 mg/ (Premix) 100 mls @ 100 mls/hr IV Q48H [facility] Last Admin: 08/13/17 20:03 Dose: Not Given Levofloxacin/Dextrose 500 mg/ (Premix) 100 mls @ 100 mls/hr IV ONETIME ONE Stop: 08/13/17 20:14 Last Admin: 08/13/17 19:25 Dose: 100 mls/hr Ceftriaxone Sodium 2 gm/ (Sodium Chloride) 100 mls @ 200 mls/hr IV Q24H [facility] Last Admin: 08/14/17 14:59 Dose: 200 mls/hr Menthol (Perform Pain Reliever) 0 ml TP BID PRN PRN Reason: PAIN Non-Formulary Medication (Ca Carbonate/Vitamin D3/Vit K [Calcium + D Soft Chewable Tab]) [address] [facility] Ondansetron HCl (Zofran Odt) 4 mg PO Q6H PRN PRN Reason: nausea, able to take PO Ondansetron HCl (Zofran) 4 mg IV Q6H PRN PRN Reason: Nausea/Vomiting - Exam General: Alert HEENT: Pupils Equal, Pupils Reactive, EOMI, Mucous Membr. Moist/[place] Neck: Supple Lungs: Clear to Auscultation, Normal Respiratory Effort Cardiovascular: Regular Rate, Regular Rhythm GI/Abdominal Exam: Normal Bowel Sounds, Soft, Non-Tender, No Organomegaly, No Distention, No Abnormal Bruit, No Mass, Pelvis Stable Extremities: Normal Inspection, Normal Range of Motion, Non-Tender, No Pedal Edema, Normal Capillary Refill Skin: Warm, Dry, Intact Neurological: No New Focal Deficit - Problem List Review Problem List Initiated/Reviewed/Updated: Yes - My Orders Last 24 Hours: My Active Orders 08/15/17 18:00 Cephalexin [Keflex] 500 mg PO Q6HR - Plan Plan:: Acute: UTI -Presented to ED with increased confusion, malaise, and weakness. -HX/o recurrent UTI's -Afrbrile -Formerly on Levoquin, started on Rocephin based on C/S. Renal insufficiency, improving -Acute on chronic STAGE 3 -BUN 77-->50 -Creatinine 2.7-->1.6 -eGFR 17-->30 -ED provider reports baseline creatinine appears to be 1.5-1.7 -In reviewing old charts it appears eGRF is usually around mid 40's. -Pt. given multiple fluid boluses in ED -Fluids ordered here, monitor for fluid overload Dehydration, improved -Anion gap 17.0-->15.3 -Kidney function as above -Fluids as above Chronic: Type II DM - home levemir and medium dose sliding scale insulin per protocol HLD HTN - stable Recurrent UTIs Arthritis Osteoporosis Hx/o CVA Hx/o Coronary artery bypass Plan: Home on am IV ATBs DVT/GI prophylaxis CM/SW for discharge planning PT/OT LOS>96 hours IV ATB adjusted with slow response to therapy.
[2017-08-15] MEDS: Cephalexin 500 MG Cap PO SCH (17:42)
[2017-08-15] MEDS: Simvastatin 40 MG Tab PO SCH (17:43)
[2017-08-16] MEDS: Cephalexin 500 MG Cap PO SCH ×3 (01:31→11:23)
[2017-08-16] MEDS: Insulin Aspart 100 Units/ML 3 ML Pen SUBCUT SCH ×2 (06:47→11:22)
[2017-08-16] MEDS: Potassium Chloride 10 MEQ Tab.ER PO SCH (06:49)
[2017-08-16] MEDS: Pantoprazole 40 MG Tab.CR PO SCH (06:49)
[2017-08-16] MEDS: Calcium Carbonate/Vitamin D3 1500 MG-200 Units Tab PO SCH (06:50)
[2017-08-16] MEDS: Furosemide 20 MG Tab PO SCH (06:50)
[2017-08-16] MEDS: Primidone 50 MG Tab PO SCH (09:00)
[2017-08-16] MEDS: Acetaminophen 325 MG Tab PO SCH (09:01)
[2017-08-16] MEDS: Clopidogrel 75 MG Tab PO SCH (09:02)
[2017-08-16] MEDS: Aspirin 81 MG Tab.EC PO SCH (09:02)
[2017-08-16] MEDS: Isosorbide Mononitrate 60 MG Tab.ER PO SCH (09:02)
[2017-08-16] MEDS: Lisinopril 20 MG Tab PO SCH (09:02)
[2017-08-16] MEDS: RIVASTIGMINE 9.5 MG/24 HR TOP SCH (09:05)
[2017-08-16] MEDS ORDERED: Magnesium Hydroxide 400 MG/5 ML Susp 30 ML Cup PO ONE (09:07)
[2017-08-16] MEDS: Insulin Detemir 100 Units/ML 3 ML Pen SUBCUT SCH (09:09)
[2017-08-16] MEDS: Gabapentin 300 MG Cap PO SCH (10:23)
--- NOTE | 2017-08-16 11:15 | PCM.DCSUM1 ---
Discharge Summary - Hospital Course Free Text/Narrative:: - History of Present Illness Initial Comments - Free Text/Narative: Roma Aviles is an 86 yo female who presented to our ED today with complaints of an altered mental status for about one week. Lab work was performed in the clinic and her creatinine was found to be elevated. A 2 to us for further workup. She denies fever, chills, cough, congestion, chest pain, shortness of breath, without pain, nausea, or vomiting. She has no dysuria. She admits to being very tired lately. She is on a new medication patch for memory. 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 On presentation to the ED she was afebrile at 98.1. Pulse was 71. Respirations 20. Blood pressure 116/39. Pulse ox 95%. IV of 500 mils NS bolus was given. EKG was performed and interpreted by the ED provider as NSR with no acute changes. Labs were obtained: W CBC elevated at 19.91. Hemoglobin 11.9. Hematocrit 36.7. She is macrocytic. Platelets normal at 330, 000. Neutrophils elevated at 74.4%. Sodium 140. Potassium 5.0. Chloride 103. Carbon dioxide 25. Anion gap is quite high at 17. BUN is very high at 77. Creatinine is high at 2.7. EGFR 17. Glucose is high at 195. Lactic acid is 1.4. Calcium is low at 8.3. Bilirubin 0.2. Liver enzymes are good with AST at 22, ALT at 19, and alkaline phosphatase at 72. Troponin is negative at less than 0.017. Total protein 7.7. Albumin is low at 2.2. UA shows 1+ protein, 2+ occult blood, positive urine nitrite, 2+ leukocyte esterase, 40-50 WBCs, and many urine bacteria. Urine culture and blood culture pending. Head CT was obtained and interpreted by Dr. De Luna as old infarcts as described above. Generalized atrophy and other senescent changes. Nothing acute is definitely appreciated on noncontrast head CT exam. The ED provider did look old records and determine her creatinine baseline is 1.5-1.7. She carries a history of impaired vision, HLD, HTN, recurrent bronchitis, recurrent UTI, osteoporosis, arthritis, CVA,2 DM on long-term insulin. She is also reported to have had a coronary artery bypass. CODE STATUS is DNR/DNI. Her primary care provider is Dr. Blevins at [facility] in [place]. Patient's course of hospital stay was with tx for AUTI with Rocephin x 4 days, transitioned to Keflex. Blood cultures were positive 1/4 bottles for ecoli also. Repeat BC are with insufficient quantitiy; patient afebrile, normal VSS. Essentially normalization of labs. Renal status improved from creatinine on admit of 2.7 to 1.2 at time of discharge. Blood sugars were stable but elevated in the 150- 200's during her stay. She will be discharged on home insulin dosing without changes. She rec'd PT/OT during course of stay, this should cont at [facility]. She will be DC'd on keflex x 2 weeks due to bacteremia. She is to follow up with PCP Dr. Blevins within 1 week of discharge. - Discharge Data Discharge Date: 08/16/17 (admit date 08/11/17) Discharge Disposition: DC/Tfer to [facility] 03 Condition: Good - Discharge Diagnosis/Problem(s) (1) Sepsis SNOMED Code(s): 47274288 ICD Code: A41.9 - SEPSIS, UNSPECIFIED ORGANISM Status: Resolved Priority : Medium Current Visit: Yes Qualifiers: Sepsis type: Escherichia coli Qualified Code(s): A41.51 - Sepsis due to Escherichia coli [E. coli] (2) UTI (urinary tract infection) SNOMED Code(s): 60877054 ICD Code: N39.0 - URINARY TRACT INFECTION, SITE NOT SPECIFIED Status: Resolved Priority: High Current Visit: Yes Qualifiers: Urinary tract infection type: acute cystitis Hematuria presence: without hematuria Qualified Code(s): N30.00 - Acute cystitis without hematuria (3) Altered mental status SNOMED Code(s): 023204243 ICD Code: R41.82 - ALTERED MENTAL STATUS, UNSPECIFIED Status: Resolved Priority: High Current Visit: Yes Qualifiers: Altered mental status type: somnolence Qualified Code(s): R40.0 - Somnolence (4) Dehydration SNOMED Code(s): 81923140 ICD Code: E86.0 - DEHYDRATION Status: Resolved Priority: High Current Visit: Yes (5) Renal insufficiency SNOMED Code(s): 679561077 ICD Code: N28.9 - DISORDER OF KIDNEY AND URETER, UNSPECIFIED Status: Chronic Priority: Medium Current Visit: Yes (6) Type 2 diabetes mellitus SNOMED Code(s): 65021955 ICD Code: E11.9 - TYPE 2 DIABETES MELLITUS WITHOUT COMPLICATIONS Status: Chronic Priority: Medium Current Visit: Yes Qualifiers: Diabetes mellitus complication status: with unspecified complications Diabetes mellitus farm marketer insulin use: with prison use Qualified Code(s) : E11.8 - Type 2 diabetes mellitus with unspecified complications; Z79.4 - custodial (current) use of insulin; Z79.4 - executive team leader (current) use of insulin; Z79.4 - custodial (current) use of insulin; Z79.4 - custodial (current) use of insulin - Patient Summary/Data Operative Procedure(s) Performed: None Complications: None Consults: Consultations 08/11/17 21:22 Consult to Case Management [CONS] Routine Consult to Jowl Trimmer [CONS] Routine OT Evaluation and Treatment [CONS] Routine PT Evaluation and Treatment [CONS] Routine Labs Pending at D/C: None Recommended Follow-up Testing/Procedures: Patient DC instructions: Physical & Occupational therapy to eval & treat. Blood sugar checks AC/HS. Follow up with PCP, Dr. Blevins within one week of discharge. Follow up with Orthopedics as scheduled for right arm/cast. Keep cast clean and dry. Planned Operative Procedure(s) after DC: None Hospital Course: As above - Patient Instructions Diet: Low Sodium, Diabetic Diet Activity: As Tolerated (keep cast clean and dry) Driving: Do Not Drive Showering/Bathing: May Shower (but keep cast dry) Notify Provider of: Fever, Increased Pain, Nausea and/or Vomiting - Discharge Plan Prescriptions/Med Rec: Cephalexin [IJD: Cephalexin] 500 mg PO Q6HR #56 capsule Home Medications: Home Meds Acetaminophen 1,000 mg PO BID 08/11/17 [History] Aspirin [Webb Aspirin] 81 mg PO DAILY 08/11/17 [History] Ca Carbonate/Vitamin D3/Vit K [Calcium + D Soft Chewable Tab] 1 tab PO BID 08/11 [History] Clopidogrel [Plavix] 75 mg PO DAILY 08/11/17 [History] Diflunisal 500 mg PO TID 08/11/17 [History] Docusate Sodium [Colace] 100 mg PO QPM 08/11/17 [History] Furosemide 20 mg PO QAM 08/11/17 [History] Furosemide 40 mg PO QAM 08/11/17 [History] Gabapentin [Neurontin] 300 mg PO TID 08/11/17 [History] Insulin Aspart [Novolog Flexpen] 4 - 10 units SUBCUT TID 08/11/17 [History] Insulin Aspart [Novolog Flexpen] 5 units SUBCUT TID 08/11/17 [History] Isosorbide Mononitrate [Imdur] 60 mg PO DAILY 08/11/17 [History] Lisinopril 20 mg PO DAILY 08/11/17 [History] Menthol [Zim's Max-Freeze] 1 applic TOP BID PRN 08/11/17 [History] Ondansetron [Zofran ODT] 4 mg PO Q6H PRN 08/11/17 [History] Pantoprazole [ProTONIX] 40 mg PO QAM 08/11/17 [History] Potassium Chloride 10 meq PO BID 08/11/17 [History] Primidone [Mysoline] 100 mg PO TID 08/11/17 [History] Rivastigmine [Exelon] 1 patch TRDERM DAILY 08/11/17 [History] Sennosides/Docusate Sodium [Senna-S] 2 tab PO BID PRN 08/11/17 [History] Simvastatin [Zocor] 40 mg PO QPM 08/11/17 [History] Cephalexin [IJD: Cephalexin] 500 mg PO Q6HR #56 capsule 08/16/17 [Rx] Insulin Detemir [Levemir Flextouch] 26 units SUBCUT QAM #1 pen 08/16/17 [Rx] Patient Handouts: Type 2 Diabetes Mellitus, Adult, Insulin Treatment for Diabetes, Hypoglycemia, Urinary Tract Infection, Adult, [id number], Chronic Kidney Disease, [id number], Bacteremia Forms: ED Department Discharge Referrals: Stewart Blevins MD [Primary Care Provider] - - Discharge Summary/Plan Comment DC Time >30 min.: Yes (40 min) - General Info Date of Service: 08/16/17 Admission Dx/Problem (Free Text: Admission Diagnosis/Problem Admission Diagnosis/Problem Sepsis UTI/Bacteremia with ecoli--treated x 5 days with IV abx and transitioned to Keflex. Repeat BC - one negative, other with insufficient quantity. Doing well, srength and energy improving. BG was low this morning at 49, amp of D50 given, along with OJ per nursing with return of sugar to 214. She is receiving levimir 12 units AM and PM (in place of home dose of 25 units lantus) along with metformin 1,000mg QAM. She will be discharged back to [facility] today. Functional Status: Reports: Pain Controlled, Tolerating Diet, Urinating ( incontinent) - Review of Systems General: Reports: Weakness. Denies: Fever HEENT: Reports: No Symptoms Pulmonary: Reports: No Symptoms. Denies: Shortness of Breath, Cough Cardiovascular: Reports: No Symptoms. Denies: Chest Pain Gastrointestinal: Reports: No Symptoms. Denies: Abdominal Pain, Nausea Musculoskeletal: Denies: No Symptoms Neurological: Reports: Confusion (baseline dementia) - Patient Data Vitals - Most Recent: Last Vital Signs Temp 97.3 F 08/16/17 08:59 Pulse 58 L 08/16/17 09:02 Resp 20 08/16/17 08:59 BP 139/42 L 08/16/17 09:02 Pulse Ox 97 08/16/17 09:02 Weight - Most Recent: 151 lb 9.6 oz I&O - Last 24 hours: Intake & Output 08/15/17 08/16/17 08/16/17 22:59 06:59 14:59 Intake Total 1180 500 120 Output Total 600 200 Balance 580 300 120 Lab Results - Last 24 hrs: Laboratory Results - last 24 hr 08/15/17 08/15/17 08/15/17 Range/Units 11:13 17:07 20:51 POC Glucose 285 H 253 H 256 H (83-110) mg/dL 08/16/17 08/16/17 Range/Units 06:13 11:08 POC Glucose 85 209 H (83-110) mg/dL GAMA Results - Last 24 hrs: Microbiology 08/15/17 21:20 Anaerobic Blood Culture - Final Blood - Venous - Lab Draw Med Orders - Current: Current Medications Acetaminophen (Tylenol) 650 mg PO Q4H PRN PRN Reason: Pain (Mild 1-3)/fever Acetaminophen (Tylenol) 650 mg PO BID [facility] Last Admin: 08/16/17 09:01 Dose: 650 mg Aspirin (Halfprin) 81 mg PO DAILY [facility] Last Admin: 08/16/17 09:02 Dose: 81 mg Bisacodyl (Dulcolax) 5 mg PO DAILY PRN PRN Reason: Constipation Calcium Carbonate (Calcium Carbonate/Vitamin D 1500 Mg-200 Unit) 1 tab PO BIDMEALS [facility] Last Admin: 08/16/17 06:50 Dose: 1 tab Cephalexin (Keflex) 500 mg PO Q6HR [facility] Last Admin: 08/16/17 06:49 Dose: 500 mg Clopidogrel Bisulfate (Plavix) 75 mg PO DAILY [facility] Last Admin: 08/16/17 09:02 Dose: 75 mg Dextrose/Water (Dextrose 50% In Water) 50 ml IVPUSH ASDIRECTED PRN PRN Reason: Hypoglycemia Docusate Sodium (Colace) 100 mg PO BID PRN PRN Reason: Constipation Last Admin: 08/16/17 06:49 Dose: 100 mg Furosemide (Lasix) 60 mg PO DAILY@0700 [facility] Last Admin: 08/16/17 06:50 Dose: 60 mg Gabapentin (Neurontin) 300 mg PO TID [facility] Last Admin: 08/16/17 10:23 Dose: 300 mg Insulin Aspart (Novolog) 0 unit SUBCUT QIDACANDBED [facility] PRN Reason: Protocol Last Admin: 08/16/17 06:47 Dose: Not Given Insulin Detemir (Levemir) 14 unit SUBCUT QPM [facility] Last Admin: 08/15/17 17:42 Dose: 14 units Insulin Detemir (Levemir) 26 unit SUBCUT QAM [facility] Last Admin: 08/16/17 09:09 Dose: 26 units Isosorbide Mononitrate (Imdur) 60 mg PO DAILY [facility] Last Admin: 08/16/17 09:02 Dose: 60 mg Lisinopril (Prinivil) 20 mg PO DAILY [facility] Last Admin: 08/16/17 09:02 Dose: 20 mg Methyl Salicylate (Analgesic [place]) 0 gm TOP BID PRN PRN Reason: PAIN Last Admin: 08/14/17 14:58 Dose: 1 applic Miscellaneous Information (Remove Patch) 0 ea TRDERM Q24H [facility] Last Admin: 08/16/17 09:16 Dose: 9.5 ea Pantoprazole Sodium (Protonix) 40 mg PO DAILY@0700 [facility] Last Admin: 08/16/17 06:49 Dose: 40 mg Potassium Chloride (Klor-Con 10) 10 meq PO BIDMEALS [facility] Last Admin: 08/16/17 06:49 Dose: 10 meq Primidone (Mysoline) 100 mg PO TID [facility] Last Admin: 08/16/17 09:00 Dose: 100 mg Rivastigmine (Exelon) 9.5 mg TOP Q24H [facility] Last Admin: 08/16/17 09:05 Dose: 9.5 mg Salsalate (Disalcid) 1,000 mg PO TID [facility] Last Admin: 08/16/17 09:04 Dose: 1,000 mg Senna/Docusate Sodium (Senna Plus) 1 tab PO BID PRN PRN Reason: Constipation Simvastatin (Zocor) 40 mg PO QPM [facility] Last Admin: 08/15/17 17:43 Dose: 40 mg Sodium Chloride (Saline Flush) 10 ml FLUSH ASDIRECTED PRN PRN Reason: Keep Vein Open Last Admin: 08/11/17 15:59 Dose: 10 ml Discontinued Medications Sodium Chloride (Normal Saline) 1,000 mls @ 1,000 mls/hr IV .BOLUS STA Stop: 08/11/17 16:41 Last Admin: 08/11/17 15:58 Dose: 1,000 mls/hr Levofloxacin/Dextrose 500 mg/ (Premix) 100 mls @ 100 mls/hr IV ONETIME ONE Stop: 08/11/17 18:31 Last Admin: 08/11/17 18:14 Dose: 100 mls/hr Sodium Chloride (Normal Saline) 1,600 mls @ 1,000 mls/hr IV ONETIME ONE Stop: 08/11/17 19:07 Last Admin: 08/11/17 17:36 Dose: 1,000 mls/hr Levofloxacin/Dextrose 500 mg/ (Premix) 100 mls @ 100 mls/hr IV Q24H [facility] Sodium Chloride (Normal Saline) 1,000 mls @ 100 mls/hr IV ASDIRECTED BRIAN Stop: 08/13/17 07:44 Last Admin: 08/12/17 10:27 Dose: 100 mls/hr Levofloxacin/Dextrose 500 mg/ (Premix) 100 mls @ 100 mls/hr IV Q48H [facility] Last Admin: 08/13/17 20:03 Dose: Not Given Levofloxacin/Dextrose 500 mg/ (Premix) 100 mls @ 100 mls/hr IV ONETIME ONE Stop: 08/13/17 20:14 Last Admin: 08/13/17 19:25 Dose: 100 mls/hr Ceftriaxone Sodium 2 gm/ (Sodium Chloride) 100 mls @ 200 mls/hr IV Q24H [facility] Last Admin: 08/14/17 14:59 Dose: 200 mls/hr Magnesium Hydroxide (Milk Of Magnesia) 30 ml PO ONETIME ONE Stop: 08/16/17 09:08 Last Admin: 08/16/17 09:52 Dose: 30 ml Menthol (Perform Pain Reliever) 0 ml TP BID PRN PRN Reason: PAIN Non-Formulary Medication (Ca Carbonate/Vitamin D3/Vit K [Calcium + D Soft Chewable Tab]) 1 tab PO BID [facility] Ondansetron HCl (Zofran Odt) 4 mg PO Q6H PRN PRN Reason: nausea, able to take PO Ondansetron HCl (Zofran) 4 mg IV Q6H PRN PRN Reason: Nausea/Vomiting - Exam Quality Assessment: Reports: DVT Prophylaxis General: Reports: Alert, Cooperative, No Acute Distress HEENT: Reports: Pupils Equal, EOMI, Mucous Membr. Moist/[place] Lungs: Reports: Clear to Auscultation, Normal Respiratory Effort, Decreased Breath Sounds (bases) Cardiovascular: Reports: Regular Rate, Regular Rhythm GI/Abdominal Exam: Normal Bowel Sounds, Soft, Non-Tender, Other (round, obese) (Female) Exam: Deferred Rectal (Female) Exam: Deferred Extremities: No Pedal Edema Neurological: Reports: No New Focal Deficit, Other (baseline dementia) *Q Meaningful Use (DIS) - VTE *Q VTE Criteria *Q: - Stroke *Q Stroke Criteria *Q: - AMI *Q AMI Criteria *Q:
[2017-08-16 13:00] VITALS: BP 107/78
== END 2017-08-16 13:54 | DRG 872 ==
LOC: JD.ED 15:23 → JD.MS 19:10
PROVIDERS: ADMIT Internal Medicine Cardiovascular Disease; ATTEND Internal Medicine Cardiovascular Disease
DX: A41.51 Sepsis due to Escherichia coli [E. coli] (principal); N39.0 Urinary tract infection, site not specified; N17.9 Acute kidney failure, unspecified; E86.0 Dehydration; Z79.4 Long term (current) use of insulin; N18.9 Chronic kidney disease, unspecified; E78.5 Hyperlipidemia, unspecified; I12.9 Hypertensive chronic kidney disease with stage 1 through stage 4 chronic kidney disease, or unspecified chronic kidney disease; E11.22 Type 2 diabetes mellitus with diabetic chronic kidney disease; Z95.1 Presence of aortocoronary bypass graft; K44.9 Diaphragmatic hernia without obstruction or gangrene; M19.90 Unspecified osteoarthritis, unspecified site; M81.0 Age-related osteoporosis without current pathological fracture; Z86.73 Personal history of transient ischemic attack (TIA), and cerebral infarction without residual deficits; Z87.440 Personal history of urinary (tract) infections; H54.7 Unspecified visual loss; Z66 Do not resuscitate; Z88.8 Allergy status to other drugs, medicaments and biological substances; Z79.02 Long term (current) use of antithrombotics/antiplatelets; Z79.82 Long term (current) use of aspirin; Z79.899 Other long term (current) drug therapy
CPT/HCPCS: 36415; 70450; 70450-26; 80048; 80053; 81001; 82962; 83036; 83605; 83735; 83880; 84484; 85025; 86140; 87040; 87077; 87086; 87088; 87186; 87641; 93005; 93010; 96361; 96365; 97110-GO; 97110-GP; 97116-GP; 97162-GP; 97167-GO; 97530-GO; 99285; 99285-25; A9270-GY; J0696; J1815-GY; J1956; J7030; J7040; J7050; P9612

== ENCOUNTER 2017-08-25 10:56 | Observation (INO) | payer OTHER ==
[2017-08-25] MEDS: Sodium Chloride 0.9% 10 ML Syringe FLUSH PRN ×2 (11:36→11:48)
[2017-08-25] MEDS ORDERED: Sodium Chloride 0.9% 500 ML IV ONE (11:38)
--- NOTE | 2017-08-25 11:38 | EDM.PDOC ---
ED HPI GENERAL MEDICAL PROBLEM - General Chief Complaint: Gastrointestinal Problem Stated Complaint: [facility] Time Seen by Provider: 08/25/17 10:58 Source of Information: Reports: Patient History Limitations: Reports: No Limitations - History of Present Illness INITIAL COMMENTS - FREE TEXT/NARRATIVE: The patient is an 86-year-old female with a history of many medical problems including congestive heart failure, chronic kidney disease, diabetes, retirement resident, who comes in today for an episode of syncope. The patient was admitted a few weeks ago with a urine infection. She improved. She was discharged to the retirement. She is here now with her daughter, who states that she had continued to seem like she was improving yesterday they had a follow-up appointment and she seemed fine and then. This morning, she was reportedly out for breakfast and was fine at breakfast time. Then she was on the toilet and had an episode in which she vomited, had a large bowel movement, and then briefly passed out. She was out just for seconds. After then she seemed lethargic but otherwise okay. [facility] staff called emergency medical services who transported her. Blood sugar was around 240 at the scene. Patient states that she feels kind of tired and weak but otherwise has no complaint. She doesn't feel nauseated now. No headache. No chest pain or cough. No abdominal pain. She is here with her daughter at the bedside who confirms that she had no complaints yesterday. Treatments SOFTWARE LEAD: Reports: Other (see below) Other Treatments SOFTWARE LEAD: currently on keflex - Related Data Allergies Allergy/AdvReac Type Severity Reaction Status Date / Time atorvastatin Allergy Cannot Verified 08/25/17 11:11 Remember propranolol Allergy Cannot Verified 08/25/17 11:11 Remember topiramate [From Topamax] Allergy Cannot Verified 08/25/17 11:11 Remember Home Meds: Home Meds Acetaminophen 1,000 mg PO BID 08/11/17 [History] Aspirin [[facility] Aspirin] 81 mg PO ASDIRECTED 08/11/17 [History] Ca Carbonate/Vitamin D3/Vit K [Calcium + D Soft Chewable Tab] 1 tab PO BID 08/11 [History] Clopidogrel [Plavix] 75 mg PO DAILY 08/11/17 [History] Diflunisal 500 mg PO TID 08/11/17 [History] Docusate Sodium [Colace] 100 mg PO QPM 08/11/17 [History] Furosemide 20 mg PO QAM 08/11/17 [History] Furosemide 40 mg PO QAM 08/11/17 [History] Gabapentin [Neurontin] 300 mg PO TID 08/11/17 [History] Insulin Aspart [Novolog Flexpen] 0 - 10 units SUBCUT TID 08/11/17 [History] Insulin Aspart [Novolog Flexpen] 5 units SUBCUT TID 08/11/17 [History] Isosorbide Mononitrate [Imdur] 60 mg PO DAILY 08/11/17 [History] Lisinopril 10 mg PO DAILY 08/11/17 [History] Menthol [Zim's Max-Freeze] 1 applic TOP BID PRN 08/11/17 [History] Ondansetron [Zofran ODT] 4 mg PO Q6H PRN 08/11/17 [History] Pantoprazole [ProTONIX] 40 mg PO QAM 08/11/17 [History] Primidone [Mysoline] 100 mg PO TID 08/11/17 [History] Sennosides/Docusate Sodium [Senna-S] 2 tab PO BID PRN 08/11/17 [History] Simvastatin [Zocor] 40 mg PO QPM 08/11/17 [History] Cephalexin [IJD: Cephalexin] 500 mg PO Q6HR #56 capsule 08/16/17 [Rx] Insulin Detemir [Levemir Flextouch] 26 units SUBCUT QAM #1 pen 08/16/17 [Rx] Arginine/Glutamine/Calcium Hmb [Jus Packet] 1 each PO DAILY 08/25/17 [History] Comp.Stocking,Knee,Regular,Med [Jobst Anti-Embolism Stocking] 1 each MC ASDIRECTED 08/25/17 [History] Fluocinonide 1 applic TP ASDIRECTED PRN 08/25/17 [History] Sennosides [Senna Lax] 8.6 mg PO BID PRN 08/25/17 [History] Past Medical History HEENT History: Reports: Impaired Vision Other HEENT History: wears eyeglasses Cardiovascular History: Reports: Arrhythmia, High Cholesterol, Hypertension, Other (See Below) Other Cardiovascular History: PVD, hypokalemia Respiratory History: Reports: Bronchitis, Recurrent Gastrointestinal History: Reports: GERD, Hiatal Hernia Genitourinary History: Reports: UTI, Recurrent 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 ACCOUNT 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: Reports: Musculoskeletal History: Reports: Arthritis, Osteoporosis Neurological History: Reports: CVA, Head Trauma Psychiatric History: Reports: Other (See Below) Other Psychiatric History: cognitive communication deficit, vascular dementia Endocrine/Metabolic History: Reports: Diabetes, Type II, IDDM Hematologic History: Reports: Other (See Below) Other Hematologic History: blood thinners - Infectious Disease History Infectious Disease History: Reports: Chicken Pox, Measles, Mumps, Shingles - Past Surgical History HEENT Surgical History: Reports: Cataract Surgery Cardiovascular Surgical History: Reports: Coronary Artery Bypass, Other (See Below) Social & Family History - Family History Family Medical History: Noncontributory - Tobacco Use Smoking Status *Q: Never Smoker Second Hand Smoke Exposure: No - Caffeine Use Caffeine Use: Reports: Coffee - Alcohol Use Days Per Week of Alcohol Use: 0 Number of Drinks Per Day: 0 Total Drinks Per Week: 0 - Recreational Drug Use Recreational Drug Use: No Drug Use in Last 12 Months: No ED ROS GENERAL - Review of Systems Review Of Systems: See Below Constitutional: Reports: Weakness, Fatigue. Denies: Fever HEENT: Reports: No Symptoms Respiratory: Denies: Shortness of Breath Cardiovascular: Denies: Chest Pain Endocrine: Reports: No Symptoms GI/Abdominal: Reports: Diarrhea, Vomiting. Denies: Abdominal Pain : Reports: No Symptoms Musculoskeletal: Reports: No Symptoms Skin: Reports: No Symptoms Neurological: Reports: No Symptoms ED EXAM, GI/ABD - Physical Exam Exam: See Below Exam Limited By: No Limitations General Appearance: Alert, WD/WN, No Apparent Distress, Other (Awake, tired appearing, answers questions appropriately) Eyes: Bilateral: Normal Appearance Ears: Normal External Exam Nose: Normal Inspection, Normal Mucosa Throat/Mouth: Normal Inspection, Normal Oropharynx, Normal Voice, No Airway Compromise Head: Atraumatic, Normocephalic Neck: Normal Inspection, Supple, Non-Tender, Full Range of Motion Respiratory/Chest: No Respiratory Distress, Lungs Clear, Normal Breath Sounds, Chest Non-Tender Cardiovascular: Normal Peripheral Pulses, Regular Rate, Rhythm, No Edema, No Murmur GI/Abdominal Exam: Soft, Non-Tender, No Distention Extremities: Normal Inspection. No: Pedal Edema Neurological: Alert, Oriented, Normal Cognition, No Motor/Sensory Deficits Psychiatric: Normal Affect, Normal Mood Skin Exam: Warm, Dry, Intact, Normal Color, No Rash Course - Vital Signs Last Recorded V/S: Last Vital Signs Temp 36.2 C 08/25/17 11:00 Pulse 76 08/25/17 11:00 Resp 20 08/25/17 11:00 BP 101/35 L 08/25/17 11:00 Pulse Ox 88 L 08/25/17 11:00 - Orders/Labs/Meds Orders: Active Orders 24 hr Category Date Time Status EKG 12 Lead [EKG Documentation Completion] [RC] STAT Care 08/25/17 11:17 Active Peripheral IV Care [RC] . DIRECTED Care 08/25/17 11:18 Active CULTURE BLOOD [BC] Stat Lab 08/25/17 13:05 Received CULTURE BLOOD [BC] Stat Lab 08/25/17 13:42 Received Sodium Chloride 0.9% [Saline Flush] Med 08/25/17 11:18 Active 10 ml FLUSH ASDIRECTED PRN Blood Culture x2 Reflex Set [OM.PC] Stat Oth 08/25/17 12:23 Ordered Peripheral IV Insertion Adult [OM.PC] Routine Oth 08/25/17 11:18 Ordered Medication Orders Sodium Chloride (Saline Flush) 10 ml FLUSH ASDIRECTED PRN PRN Reason: Keep Vein Open Last Admin: 08/25/17 11:48 Dose: 10 ml Admin: 08/25/17 11:36 Dose: 10 ml Labs: Laboratory Tests 08/25/17 08/25/17 08/25/17 Range/Units 11:30 11:30 11:42 WBC 13.41 H (3.98-10.04) K/mm3 RBC 3.65 L (3.98-5.22) M/mm3 Hgb 11.9 (11.2-15.7) gm/L Hct 37.9 (34.1-44.9) % MCV 103.8 H (79.4-94.8) fl MCH 32.6 H (25.6-32.2) pg MCHC 31.4 L (32.2-35.5) g/dl RDW Std Deviation 51.4 H (36.4-46.3) fL Plt Count 348 (182-369) K/mm3 MPV 11.9 (9.4-12.3) fl Neut % (Auto) 75.9 H (34.0-71.1) % Lymph % (Auto) 15.5 L (19.3-51.7) % [place] % (Auto) 6.9 (4.7-12.5) % Eos % (Auto) 1.1 (0.7-5.8) Baso % (Auto) 0.4 (0.1-1.2) % Neut # (Auto) 10.17 H (1.56-6.13) K/mm3 Lymph # (Auto) 2.08 (1.18-3.74) K/mm3 [place] # (Auto) 0.93 H (0.24-0.36) K/mm3 Eos # (Auto) 0.15 (0.04-0.36) K/mm3 Baso # (Auto) 0.05 (0.01-0.08) K/mm3 Sodium 139 (136-145) mEq/L Potassium 5.8 H (3.5-5.1) mEq/L Chloride 103 (98-107) mEq/L Carbon Dioxide 25 (21-32) mEq/L Anion Gap 16.8 H (5-15) BUN 69 H (7-18) mg/dL Creatinine 2.3 H (0.55-1.02) mg/dL Est Cr Clr Drug Dosing 14.88 mL/min Estimated GFR (MDRD) 20 (>60) mL/min BUN/Creatinine Ratio 30.0 H (14-18) Glucose 227 H (83-115) mg/dL POC Glucose 249 H (83-110) mg/dL Lactic Acid (0.4-2.0) mmol/L Calcium 8.7 (8.5-10.1) mg/dL Total Bilirubin 0.2 (0.2-1.0) mg/dL AST 19 (15-37) U/L ALT 17 (14-59) U/L Alkaline Phosphatase 80 (46-116) U/L Troponin I < 0.017 (0.00-0.056) ng/mL NT-Pro-B Natriuret Pep 585 H (0-450) pg/mL Total Protein 7.4 (6.4-8.2) g/dl Albumin 2.5 L (3.4-5.0) g/dl Globulin 4.9 gm/dL Albumin/Globulin Ratio 0.5 L (1-2) Urine Color (Yellow) Urine Appearance (Clear) Urine pH (5.0-8.0) Ur Specific [place] (1.005-1.030) Urine Protein (Negative) Urine Glucose (UA) (Negative) Urine Ketones (Negative) Urine Occult Blood (Negative) Urine Nitrite (Negative) Urine Bilirubin (Negative) Urine Urobilinogen (0.2-1.0) Ur Leukocyte Esterase (Negative) Urine RBC (0-5) /hpf Urine WBC (0-5) /hpf Ur Epithelial Cells (0-5) /hpf Urine Bacteria (FEW) /hpf Urine Mucus (FEW) /hpf 08/25/17 08/25/17 Range/Units 13:30 13:42 WBC (3.98-10.04) K/mm3 RBC (3.98-5.22) M/mm3 Hgb (11.2-15.7) gm/L Hct (34.1-44.9) % MCV (79.4-94.8) fl MCH (25.6-32.2) pg MCHC (32.2-35.5) g/dl RDW Std Deviation (36.4-46.3) fL Plt Count (182-369) K/mm3 MPV (9.4-12.3) fl Neut % (Auto) (34.0-71.1) % Lymph % (Auto) (19.3-51.7) % [place] % (Auto) (4.7-12.5) % Eos % (Auto) (0.7-5.8) Baso % (Auto) (0.1-1.2) % Neut # (Auto) (1.56-6.13) K/mm3 Lymph # (Auto) (1.18-3.74) K/mm3 [place] # (Auto) (0.24-0.36) K/mm3 Eos # (Auto) (0.04-0.36) K/mm3 Baso # (Auto) (0.01-0.08) K/mm3 Sodium (136-145) mEq/L Potassium (3.5-5.1) mEq/L Chloride (98-107) mEq/L Carbon Dioxide (21-32) mEq/L Anion Gap (5-15) BUN (7-18) mg/dL Creatinine (0.55-1.02) mg/dL Est Cr Clr Drug Dosing mL/min Estimated GFR (MDRD) (>60) mL/min BUN/Creatinine Ratio (14-18) Glucose (83-115) mg/dL POC Glucose (83-110) mg/dL Lactic Acid 1.2 (0.4-2.0) mmol/L Calcium (8.5-10.1) mg/dL Total Bilirubin (0.2-1.0) mg/dL AST (15-37) U/L ALT (14-59) U/L Alkaline Phosphatase (46-116) U/L Troponin I (0.00-0.056) ng/mL NT-Pro-B Natriuret Pep (0-450) pg/mL Total Protein (6.4-8.2) g/dl Albumin (3.4-5.0) g/dl Globulin gm/dL Albumin/Globulin Ratio (1-2) Urine Color Yellow (Yellow) Urine Appearance Clear (Clear) Urine pH 6.0 (5.0-8.0) Ur Specific [place] 1.020 (1.005-1.030) Urine Protein Negative (Negative) Urine Glucose (UA) Negative (Negative) Urine Ketones Negative (Negative) Urine Occult Blood Negative (Negative) Urine Nitrite Negative (Negative) Urine Bilirubin Negative (Negative) Urine Urobilinogen 0.2 (0.2-1.0) Ur Leukocyte Esterase Trace H (Negative) Urine RBC 0-5 (0-5) /hpf Urine WBC 0-5 (0-5) /hpf Ur Epithelial Cells 0-5 (0-5) /hpf Urine Bacteria Rare (FEW) /hpf Urine Mucus Few (FEW) /hpf Meds: Medications Generic Name Dose Route Start Last Admin Trade Name Freq PRN Reason Stop Dose Admin Sodium Chloride 10 ml 08/25/17 11:18 08/25/17 11:48 Saline Flush FLUSH 10 ml ASDIRECTED PRN Administration Keep Vein Open Discontinued Medications Generic Name Dose Route Start Last Admin Trade Name Freq PRN Reason Stop Dose Admin Sodium Chloride 500 mls @ 1,000 mls/hr 08/25/17 11:38 08/25/17 11:47 Normal Saline IV 08/25/17 12:07 1,000 mls/hr ONETIME ONE Administration - Re-Assessments/Exams Free Text/Narrative Re-Assessment/Exam: 08/25/17 13:37 EKG shows ventricularly paced rhythm. Chest x-ray shows enlarged cardiac silhouette, no definite infiltrate. Labs show negative troponin. Mildly elevated white blood cell count. Elevated creatinine at 2.3 today compared to 1.2 at discharge. Her blood pressure is also a bit soft at 90s over 50s. I think she may be overmedicated/overdiuresis. We'll give 500 mL bolus and re- eval. Discussed with Dr. Mckeon who agrees to eval her for admission. Departure - Departure Time of Disposition: 14:00 Disposition: Admitted As Inpatient 65 Clinical Impression: Acute kidney injury, Dehydration, Hyperkalemia Syncope Qualifiers: Syncope type: unspecified Qualified Code(s): R55 - Syncope and collapse - Discharge Information - My Orders Last 24 Hours: My Active Orders 08/25/17 11:17 EKG 12 Lead [EKG Documentation Completion] [RC] STAT 08/25/17 11:18 Peripheral IV Care [RC] . DIRECTED Sodium Chloride 0.9% [Saline Flush] 10 ml FLUSH ASDIRECTED PRN Peripheral IV Insertion Adult [OM.PC] Routine 08/25/17 12:23 Blood Culture x2 Reflex Set [OM.PC] Stat 08/25/17 13:05 CULTURE BLOOD [BC] Stat 08/25/17 13:42 CULTURE BLOOD [BC] Stat - Assessment/Plan Last 24 Hours: My Active Orders 08/25/17 11:17 EKG 12 Lead [EKG Documentation Completion] [RC] STAT 08/25/17 11:18 Peripheral IV Care [RC] . DIRECTED Sodium Chloride 0.9% [Saline Flush] 10 ml FLUSH ASDIRECTED PRN Peripheral IV Insertion Adult [OM.PC] Routine 08/25/17 12:23 Blood Culture x2 Reflex Set [OM.PC] Stat 08/25/17 13:05 CULTURE BLOOD [BC] Stat 08/25/17 13:42 CULTURE BLOOD [BC] Stat
--- NOTE | 2017-08-25 15:43 | CR ---
Chest: Portable view of the chest was obtained. Comparison: Prior chest x-ray of 12/13/14. Heart is slightly enlarged. Upper mediastinum is normal. Sternotomy is noted. Lungs are clear. Bony structures are osteopenic. Impression: 1. Mild cardiomegaly. Nothing acute is appreciated on portable chest x-ray. Diagnostic code #2
--- NOTE | 2017-08-25 17:17 | PCM.HP ---
H&P History of Present Illness - General Date of Service: 08/25/17 Admit Problem/Dx: Admission Diagnosis/Problem Admission Diagnosis/Problem Acute kidney injury Source of Information: Patient, Old Records, RN, RN Notes Reviewed, Other History Limitations: Reports: No Limitations - History of Present Illness Initial Comments - Free Text/Narative: Roma Aviles is an 86 yo female who is well known to this hospitalist team. She presented to the ED today after an episode of syncope. She was discharged 9 days prior after successful treatment for a UTI. She was discharged to long term and doing well. She was improving yesterday and had a follow-up appointment and seem fine. This morning she attended breakfast and looked well. After breakfast she was on the toilet and had an episode which she vomited, had large bowel movement, and then briefly passed out. She reportedly out for just seconds. Afterwards she seem lethargic but was otherwise okay. custodial staff called Tony who transported her here. Blood sugar was 240 at the scene. Patient state that she still feels kind of weak and tired, but otherwise has no complaint. She is not nauseated, denies headache, chest pain, or abdominal pain. She is currently on Keflex. In the ED temp was 36.2 Celsius. Pulse 76. Respiration 20. BP 101/35. Pulse ox 88%. She was placed on oxygen. White count was slightly elevated at 13.41. Hemoglobin 11.6. Hematocrit 37.9. She is macrocytic. Platelets are 348, 000. Neutrophils elevated at 75.9%. Sodium 139. Potassium high at 5.8. Chloride 103. Carbon dioxide 25. Anion gap was high at 16.8. BUN is high at 69. Creatinine high at 2.3. EGFR is 20. Glucose was 227. Lactic acid 1.2. Calcium 8.7. Bilirubin 0.2. Liver enzymes looked good with AST of 19, ALT of 17, alkaline phosphatase of 80. Troponin is negative at less than 0.017. BNP is slightly elevated at 585. Protein is 4.7. Albumin is low at 2.5. UA is otherwise negative with trace leukocyte esterase and rare urine bacteria. EKG shows a ventricular paced rhythm. Chest x-ray shows enlarged cardiac silhouette , no definite infiltrate. It is noted her creatinine at prior discharge was 1.2. She was given a 500 mL fluid bolus. Blood cultures were ordered. She has a lengthy history of: impaired vision, HLD, HTN, PVD, recurrent bronchitis, GERD, recurrent UTI, arthritis, osteoporosis, prior CVA, cognitive communication deficit, vascular dementia, type II DM on insulin. She was never a smoker. She subsequently admitted to the medical floor as observation status. She is a DNR. Her PCP is Dr. Blevins at [facility] in [place]. - Related Data Allergies/Adverse Reactions: Allergies Allergy/AdvReac Type Severity Reaction Status Date / Time atorvastatin Allergy Cannot Verified 08/25/17 16:57 Remember propranolol Allergy Cannot Verified 08/25/17 16:57 Remember topiramate [From Topamax] Allergy Cannot Verified 08/25/17 16:57 Remember Home Medications: Home Meds Acetaminophen 1,000 mg PO BID 08/11/17 [History] Aspirin [[place] Aspirin] 81 mg PO ASDIRECTED 08/11/17 [History] Ca Carbonate/Vitamin D3/Vit K [Calcium + D Soft Chewable Tab] 1 tab PO BID 08/11 [History] Clopidogrel [Plavix] 75 mg PO DAILY 08/11/17 [History] Diflunisal 500 mg PO TID 08/11/17 [History] Docusate Sodium [Colace] 100 mg PO QPM 08/11/17 [History] Furosemide 60 mg PO QAM 08/11/17 [History] Gabapentin [Neurontin] 300 mg PO TID 08/11/17 [History] Insulin Aspart [Novolog Flexpen] 0 - 10 units SUBCUT TID 08/11/17 [History] Insulin Aspart [Novolog Flexpen] 5 units SUBCUT TID 08/11/17 [History] Isosorbide Mononitrate [Imdur] 60 mg PO DAILY 08/11/17 [History] Lisinopril 10 mg PO DAILY 08/11/17 [History] Menthol [Zim's Max-Freeze] 1 applic TOP BID PRN 08/11/17 [History] Ondansetron [Zofran ODT] 4 mg PO Q6H PRN 08/11/17 [History] Pantoprazole [ProTONIX] 40 mg PO QAM 08/11/17 [History] Primidone [Mysoline] 100 mg PO TID 08/11/17 [History] Sennosides/Docusate Sodium [Senna-S] 2 tab PO BID PRN 08/11/17 [History] Simvastatin [Zocor] 40 mg PO QPM 08/11/17 [History] Cephalexin [IJD: Cephalexin] 500 mg PO Q6HR #56 capsule 08/16/17 [Rx] Insulin Detemir [Levemir Flextouch] 26 units SUBCUT QAM #1 pen 08/16/17 [Rx] Arginine/Glutamine/Calcium Hmb [Jus Packet] 1 each PO DAILY 08/25/17 [History] Fluocinonide 1 applic TP ASDIRECTED PRN 08/25/17 [History] Past Medical History HEENT History: Reports: Impaired Vision Other HEENT History: wears eyeglasses Cardiovascular History: Reports: Arrhythmia, High Cholesterol, Hypertension, Other (See Below) Other Cardiovascular History: PVD, hypokalemia Respiratory History: Reports: Bronchitis, Recurrent Gastrointestinal History: Reports: GERD, Hiatal Hernia Genitourinary History: Reports: UTI, Recurrent [employer] History: Reports: Musculoskeletal History: Reports: Arthritis, Osteoporosis Neurological History: Reports: CVA, Head Trauma Psychiatric History: Reports: Other (See Below) Other Psychiatric History: cognitive communication deficit, vascular dementia Endocrine/Metabolic History: Reports: Diabetes, Type II, IDDM Hematologic History: Reports: Other (See Below) Other Hematologic History: blood thinners - Infectious Disease History Infectious Disease History: Reports: Chicken Pox, Measles, Mumps, Shingles - Past Surgical History HEENT Surgical History: Reports: Cataract Surgery Cardiovascular Surgical History: Reports: Coronary Artery Bypass, Other (See Below) Social & Family History - Family History Family Medical History: Noncontributory - Tobacco Use Smoking Status *Q: Never Smoker Second Hand Smoke Exposure: No - Caffeine Use Caffeine Use: Reports: Coffee - Alcohol Use Days Per Week of Alcohol Use: 0 Number of Drinks Per Day: 0 Total Drinks Per Week: 0 - Recreational Drug Use Recreational Drug Use: No Drug Use in Last 12 Months: No H&P Review of Systems - Review of Systems: Review Of Systems: See Below Free Text/Narrative: In to see Roma. She is sitting at edge of bed eating. She denies any symptoms reports she no longer feels weak. she has no concerns at this time. We 'll give IV fluids tonight as it appears she is somewhat dehydrated. Will hold her lisinopril tonight. Will check an influenza A and B as well as mycoplasma pneumonia. General: Reports: No Symptoms. Denies: Fever, Chills, Malaise, Weakness, Fatigue, Decreased Appetite HEENT: Reports: No Symptoms. Denies: Ear Pain, Eye Pain, Headaches, Sore Throat Pulmonary: Reports: No Symptoms. Denies: Shortness of Breath, Wheezing, Pleuritic Chest Pain, Cough, Sputum Cardiovascular: Reports: No Symptoms. Denies: Chest Pain, Palpitations, Edema, Lightheadedness Gastrointestinal: Reports: No Symptoms. Denies: Abdominal Pain, Constipation, Diarrhea, Nausea, Vomiting Genitourinary: Reports: No Symptoms. Denies: Dysuria, Frequency, Burning, Pain , Urgency Musculoskeletal: Reports: No Symptoms Skin: Reports: No Symptoms Psychiatric: Reports: No Symptoms Neurological: Reports: No Symptoms Hematologic/Lymphatic: Reports: No Symptoms Immunologic: Reports: No Symptoms Exam - Exam Exam: See Below - Vital Signs Vital Signs: Last Vital Signs Temp 98.1 F 08/25/17 16:53 Pulse 84 08/25/17 16:53 Resp 16 08/25/17 16:53 BP 126/79 08/25/17 16:53 Pulse Ox 97 08/25/17 16:53 Weight: 151 lb 2 oz - Exam Quality Assessment: DVT Prophylaxis General: Alert, Oriented, Cooperative. No: Mild Distress, Lethargic HEENT: Conjunctiva Clear, EACs Clear, EOMI, Hearing Intact, Mucosa Moist & [place] , Nares Patent, Normal Nasal Septum, Posterior Pharynx Clear, PERRLA Neck: Supple, Trachea Midline. No: JVD, Thyromegaly Lungs: Clear to Auscultation, Normal Respiratory Effort. No: Crackles, Rales, Rhonchi, Rub, Stridor, Wheezing Cardiovascular: Regular Rate, Regular Rhythm GI/Abdominal Exam: Normal Bowel Sounds, Soft, Non-Tender, No Organomegaly, No Distention, No Abnormal Bruit, No Mass, Pelvis Stable (Female) Exam: Deferred Rectal (Female) Exam: Deferred Back Exam: Normal Inspection Extremities: Normal Inspection, Normal Range of Motion, Non-Tender, No Pedal Edema, Normal Capillary Refill Peripheral Pulses: 3+: Radial (L), Radial (R), Posterior Tibial (L), Posterior Tibial (R), Dorsalis Pedis (L), Dorsalis Pedis (R) Skin: Warm, Dry, Intact Neurological: Cranial Nerves Intact Neuro Extensive - Mental Status: Alert, Oriented x3, Normal Mood/Affect, Normal Cognition Neuro Extensive - Motor, Sensory, Reflexes: CN II-XII Intact, Tremor (baseline ) Psychiatric: Alert, Normal Affect, Normal Mood - Patient Data Result Diagrams: 08/25/17 11:30 08/25/17 11:30 *Q Meaningful Use (ADM) - VTE *Q VTE Criteria *Q: - Stroke *Q Stroke Criteria *Q: - AMI *Q AMI Criteria *Q: - Problem List (1) Acute kidney injury SNOMED Code(s): 21396085 ICD Code: N17.9 - ACUTE KIDNEY FAILURE, UNSPECIFIED Status: Acute Priority: High Current Visit: Yes (2) Dehydration SNOMED Code(s): 60187191 ICD Code: E86.0 - DEHYDRATION Status: Acute Priority: High Current Visit: Yes (3) Hyperkalemia SNOMED Code(s): 44604726 ICD Code: E87.5 - HYPERKALEMIA Status: Acute Priority: Medium Current Visit: Yes (4) Syncope SNOMED Code(s): 501649616 ICD Code: R55 - SYNCOPE AND COLLAPSE Status: Acute Priority: High Current Visit: Yes Qualifiers: Syncope type: unspecified Qualified Code(s): R55 - Syncope and collapse Problem List Initiated/Reviewed/Updated: Yes Orders Last 24hrs: Active Orders 24 hr Category Date Time Status METH-RESIST S.AUR,MRSA BY PCR [MOLEC] Routine Lab 08/25/17 17:03 Ordered Resuscitation Status Routine Resus Stat 08/25/17 16:56 Ordered Medication Orders Sodium Chloride (Saline Flush) 10 ml FLUSH ASDIRECTED PRN PRN Reason: Keep Vein Open Last Admin: 08/25/17 11:48 Dose: 10 ml Admin: 08/25/17 11:36 Dose: 10 ml Assessment/Plan Comment:: I/P: Acute Kidney injury -Acute on chronic -Bun 69 -Creatinine 2.3 -eGFR 20 -Baseline Creatinine appear around 1.2 and eGFR low to mid 40's -Likely poor oral hydration -IV fluids as ordered -Monitor for worsening heart failure -Hold lisinopril tonight -Encourage oral hydration Dehydration -Dry mucous membranes -Anion gap 16.8 -Hypotensive in ED - responded well to 500mL bolus -kidney function as above -Fluids -Likely cause of DUONG -Other orders as above Syncope -Reportedly passed out while on toilet around time of large bowel movement. -Likely result of dehydration and vasovagal response -Does not feel lightheaded or dizzy here -Continue to monitor Hyperkalemia -Potassium 5.8 -Asymptomatic -laboratory monitor -Likely 2/2 dehydration -IV fluids -Monitor via labs -Continue lasix Chronic: Impaired vision HLD HTN - low BP today PVD GERD recurrent UTI's arthritis osteoporosis hx/o CVA Cognitive communication deficit Vascular dementia Type II DM on insulin - continue home long acting insulin and begin low dose insulin sliding scale per protocol. Plan: Admit to medical floor on telemetry observation status CM for discharge planning PT/OT Other orders as indicated above Continue oral Keflex due to past hospitalization for bacteremia Home medications as ordered Routine AM labs Code Status: DNR. Her PCP is Dr. Blevins at [facility] here in [place].
[2017-08-25] MEDS ORDERED: Acetaminophen 325 MG Tab PO PRN (19:14)
[2017-08-25] MEDS ORDERED: Bisacodyl 5 MG Tab PO PRN (19:14)
[2017-08-25] MEDS ORDERED: Ondansetron 4 MG/2 ML SDV IV PRN (19:14)
[2017-08-25] MEDS ORDERED: Ondansetron 4 MG Tab.DIS PO PRN (19:14)
[2017-08-25] MEDS ORDERED: Docusate Sodium 100 MG Cap PO PRN (19:14)
[2017-08-25] MEDS ORDERED: 50% Dextrose in Water 50 ML Syringe IVPUSH PRN (19:29)
[2017-08-25] MEDS: Primidone 50 MG Tab PO SCH (21:28)
[2017-08-25] MEDS: Gabapentin 300 MG Cap PO SCH (21:28)
[2017-08-25] MEDS: Sodium Chloride 0.9% 1,000 ML IV SCH (21:32)
[2017-08-25] MEDS: Insulin Aspart 100 Units/ML 3 ML Pen SUBCUT SCH (23:12)
[2017-08-25] MEDS: Cephalexin 500 MG Cap PO SCH (23:20)
[2017-08-26] MEDS: Insulin Aspart 100 Units/ML 3 ML Pen SUBCUT SCH ×4 (06:26→23:24)
[2017-08-26] MEDS: Cephalexin 500 MG Cap PO SCH ×4 (06:26→23:50)
[2017-08-26] MEDS: Insulin Detemir 100 Units/ML 3 ML Pen SUBCUT SCH (09:01)
[2017-08-26] MEDS: Furosemide 20 MG Tab PO SCH (09:01)
[2017-08-26] MEDS: Gabapentin 300 MG Cap PO SCH ×3 (09:02→21:49)
[2017-08-26] MEDS: Clopidogrel 75 MG Tab PO SCH (09:02)
[2017-08-26] MEDS: Primidone 50 MG Tab PO SCH ×3 (09:02→21:49)
[2017-08-26] MEDS: Isosorbide Mononitrate 60 MG Tab.ER PO SCH (09:02)
[2017-08-26] MEDS: Pantoprazole 40 MG Tab.CR PO SCH (09:03)
[2017-08-26] MEDS: Sodium Chloride 0.9% 1,000 ML IV SCH (11:12)
--- NOTE | 2017-08-26 13:10 | PCM.PN ---
- General Info Date of Service: 08/26/17 Admission Dx/Problem (Free Text): Admission Diagnosis/Problem Admission Diagnosis/Problem Acute kidney injury Feels "much better" today; has been up to BR multiple times today. Feels stronger overall. Eating without n/v. Taking adequate PO now. Denies c/o pain. Functional Status: Reports: Pain Controlled, Tolerating Diet, Ambulating, Urinating. Denies: New Symptoms - Review of Systems General: Reports: No Symptoms, Weakness (improved) HEENT: Reports: No Symptoms Pulmonary: Reports: No Symptoms Cardiovascular: Reports: No Symptoms Gastrointestinal: Reports: No Symptoms Genitourinary: Reports: No Symptoms Musculoskeletal: Reports: No Symptoms Skin: Reports: No Symptoms Neurological: Reports: No Symptoms Psychiatric: Reports: No Symptoms - Patient Data Vitals - Most Recent: Last Vital Signs Temp 98.1 F 08/26/17 04:58 Pulse 77 08/26/17 04:58 Resp 18 08/26/17 04:58 BP 151/95 H 08/26/17 04:58 Pulse Ox 94 L 08/26/17 04:58 Weight - Most Recent: 147 lb 9.6 oz I&O - Last 24 Hours: Intake & Output 08/25/17 08/26/17 08/26/17 22:59 06:59 14:59 Intake Total 240 1016 Balance 240 1016 Lab Results Last 24 Hours: Laboratory Results - last 24 hr 08/25/17 08/25/17 08/26/17 Range/Units 17:05 23:15 05:48 WBC 16.98 H (3.98-10.04) K/mm3 RBC 3.25 L (3.98-5.22) M/mm3 Hgb 10.7 L (11.2-15.7) gm/L Hct 33.6 L (34.1-44.9) % MCV 103.4 H (79.4-94.8) fl MCH 32.9 H (25.6-32.2) pg MCHC 31.8 L (32.2-35.5) g/dl RDW Std Deviation 51.3 H (36.4-46.3) fL Plt Count 302 (182-369) K/mm3 MPV 11.9 (9.4-12.3) fl Neut % (Auto) 70.2 (34.0-71.1) % Lymph % (Auto) 20.2 (19.3-51.7) % [place] % (Auto) 7.7 (4.7-12.5) % Eos % (Auto) 1.4 (0.7-5.8) Baso % (Auto) 0.3 (0.1-1.2) % Neut # (Auto) 11.92 H (1.56-6.13) K/mm3 Lymph # (Auto) 3.43 (1.18-3.74) K/mm3 [place] # (Auto) 1.31 H (0.24-0.36) K/mm3 Eos # (Auto) 0.24 (0.04-0.36) K/mm3 Baso # (Auto) 0.05 (0.01-0.08) K/mm3 Sodium (136-145) mEq/L Potassium (3.5-5.1) mEq/L Chloride (98-107) mEq/L Carbon Dioxide (21-32) mEq/L Anion Gap (5-15) BUN (7-18) mg/dL Creatinine (0.55-1.02) mg/dL Est Cr Clr Drug Dosing mL/min Estimated GFR (MDRD) (>60) mL/min BUN/Creatinine Ratio (14-18) Glucose (83-115) mg/dL POC Glucose 221 H (83-110) mg/dL Calcium (8.5-10.1) mg/dL Magnesium (1.8-2.4) mg/dl NT-Pro-B Natriuret Pep (0-450) pg/mL MRSA (PCR) Negative 08/26/17 08/26/17 08/26/17 Range/Units 05:48 06:25 11:09 WBC (3.98-10.04) K/mm3 RBC (3.98-5.22) M/mm3 Hgb (11.2-15.7) gm/L Hct (34.1-44.9) % MCV (79.4-94.8) fl MCH (25.6-32.2) pg MCHC (32.2-35.5) g/dl RDW Std Deviation (36.4-46.3) fL Plt Count (182-369) K/mm3 MPV (9.4-12.3) fl Neut % (Auto) (34.0-71.1) % Lymph % (Auto) (19.3-51.7) % [place] % (Auto) (4.7-12.5) % Eos % (Auto) (0.7-5.8) Baso % (Auto) (0.1-1.2) % Neut # (Auto) (1.56-6.13) K/mm3 Lymph # (Auto) (1.18-3.74) K/mm3 [place] # (Auto) (0.24-0.36) K/mm3 Eos # (Auto) (0.04-0.36) K/mm3 Baso # (Auto) (0.01-0.08) K/mm3 Sodium 142 (136-145) mEq/L Potassium 4.2 (3.5-5.1) mEq/L Chloride 110 H (98-107) mEq/L Carbon Dioxide 24 (21-32) mEq/L Anion Gap 12.2 (5-15) BUN 52 H (7-18) mg/dL Creatinine 1.6 H (0.55-1.02) mg/dL Est Cr Clr Drug Dosing 21.39 mL/min Estimated GFR (MDRD) 30 (>60) mL/min BUN/Creatinine Ratio 32.5 H (14-18) Glucose 193 H (83-115) mg/dL POC Glucose 213 H 276 H (83-110) mg/dL Calcium 8.1 L (8.5-10.1) mg/dL Magnesium 2.6 H (1.8-2.4) mg/dl NT-Pro-B Natriuret Pep 489 H (0-450) pg/mL MRSA (PCR) [place] Results Last 24 Hours: Microbiology 08/26/17 01:09 Influenza Type A Antigen Screen - Final Nasal Aspirate, Unspecified NEGATIVE INFLUENZA A VIRUS AG Influenza Type B Antigen Screen - Final NEGATIVE INFLUENZA B VIRUS AG Med Orders - Current: Current Medications Acetaminophen (Tylenol) 650 mg PO Q4H PRN PRN Reason: Pain (Mild 1-3)/fever Aspirin (Aspirin) 81 mg PO Q48H BRIAN Bisacodyl (Dulcolax) 5 mg PO DAILY PRN PRN Reason: Constipation Cephalexin (Keflex) 500 mg PO Q6HR BRIAN Stop: 09/08/17 18:01 Last Admin: 08/26/17 12:01 Dose: 500 mg Clopidogrel Bisulfate (Plavix) 75 mg PO DAILY [facility] Last Admin: 08/26/17 09:02 Dose: 75 mg Dextrose/Water (Dextrose 50% In Water) 50 ml IVPUSH ASDIRECTED PRN PRN Reason: hypoglycemia Docusate Sodium (Colace) 100 mg PO BID PRN PRN Reason: Constipation Furosemide (Lasix) 60 mg PO QAM [facility] Last Admin: 08/26/17 09:01 Dose: 60 mg Gabapentin (Neurontin) 300 mg PO TID [facility] Last Admin: 08/26/17 09:02 Dose: 300 mg Sodium Chloride (Normal Saline) 1,000 mls @ 75 mls/hr IV ASDIRECTED [facility] Stop: 08/27/17 08:49 Last Admin: 08/26/17 11:12 Dose: 75 mls/hr Insulin Aspart (Novolog) 0 unit SUBCUT QIDACANDBED [facility] PRN Reason: Protocol Last Admin: 08/26/17 11:13 Dose: 3 units Insulin Detemir (Levemir) 26 unit SUBCUT [facility] Last Admin: 08/26/17 09:01 Dose: 26 unit Isosorbide Mononitrate (Imdur) 60 mg PO DAILY [facility] Last Admin: 08/26/17 09:02 Dose: 60 mg Ondansetron HCl (Zofran Odt) 4 mg PO Q6H PRN PRN Reason: nausea, able to take PO Ondansetron HCl (Zofran) 4 mg IV Q6H PRN PRN Reason: Nausea/Vomiting Pantoprazole Sodium (Protonix) [facility] Last Admin: 08/26/17 09:03 Dose: 40 mg Primidone (Mysoline) 100 mg PO TID [facility] Last Admin: 08/26/17 09:02 Dose: 100 mg Salsalate (Disalcid) 1,500 mg PO TIDMEALS [facility] Last Admin: 08/26/17 12:01 Dose: 1,500 mg Simvastatin (Zocor) 40 mg PO QPM [facility] Sodium Chloride (Saline Flush) 10 ml FLUSH ASDIRECTED PRN PRN Reason: Keep Vein Open Last Admin: 08/25/17 11:48 Dose: 10 ml Discontinued Medications Sodium Chloride (Normal Saline) 500 mls @ 1,000 mls/hr IV ONETIME ONE Stop: 08/25/17 12:07 Last Admin: 08/25/17 11:47 Dose: 1,000 mls/hr - Exam Quality Assessment: DVT Prophylaxis General: Alert, Oriented, Cooperative, No Acute Distress HEENT: Pupils Equal, EOMI, Mucous Membr. Moist/[place] Neck: Supple Lungs: Clear to Auscultation, Normal Respiratory Effort, Decreased Breath Sounds (bases) Cardiovascular: Regular Rate, Regular Rhythm GI/Abdominal Exam: Normal Bowel Sounds, Soft, Non-Tender (Female) Exam: Deferred Back Exam: Normal Inspection Extremities: No Pedal Edema, Normal Capillary Refill Peripheral Pulses: 1+: Dorsalis Pedis (L), Dorsalis Pedis (R) Neurological: No New Focal Deficit Psy/Mental Status: Alert, Normal Affect, Normal Mood - Problem List & Annotations (1) Acute kidney injury SNOMED Code(s): 46145146 Code(s): N17.9 - ACUTE KIDNEY FAILURE, UNSPECIFIED Status: Acute Priority : High Current Visit: Yes (2) Dehydration SNOMED Code(s): 90536363 Code(s): E86.0 - DEHYDRATION Status: Acute Priority: High Current Visit : Yes (3) Hyperkalemia SNOMED Code(s): 07840188 Code(s): E87.5 - HYPERKALEMIA Status: Acute Priority: Medium Current Visit: Yes - Problem List Review Problem List Initiated/Reviewed/Updated: Yes - Plan Plan:: I/P: Acute Kidney injury--improved today -Acute on chronic -Bun 69 -Creatinine 2.3-->1.6 -eGFR 20 -Baseline Creatinine appear around 1.2 and eGFR low to mid 40's -Likely poor oral hydration--good PO intake now -IV fluids as ordered; continue today -Monitor for worsening heart failure -Hold lisinopril tonight -Encourage oral hydration Dehydration --resolved, feels much better -Dry mucous membranes -Anion gap 16.8 -Hypotensive in ED - responded well to 500mL bolus -kidney function as above -Fluids -Likely cause of DUONG -Other orders as above Syncope -Reportedly passed out while on toilet around time of large bowel movement. -Likely result of dehydration and vasovagal response -Does not feel lightheaded or dizzy here -Continue to monitor -No telemetry concerns thus far Hyperkalemia--resolved/corrected -Potassium 5.8-->4.2 today -Asymptomatic -secured entrance monitor- unremarkable -Likely 2/2 dehydration -IV fluids -Monitor via labs -Continue lasix Elevation of WBC today -13K -->16K today -UA negative, CXR in ED negative, negative flu and mycoplasma -Repeat CXR today -Cont to follow WBC with am labs Chronic: Impaired vision HLD HTN -stable PVD GERD recurrent UTI's arthritis osteoporosis hx/o CVA Cognitive communication deficit Vascular dementia Type II DM on insulin - continue home long acting insulin and begin low dose insulin sliding scale per protocol. Plan: Admit to medical floor on telemetry observation status CM for discharge planning---plan likely DC home/back to SNF tomorrow pending labs/WBC/K+ in am. PT/OT Other orders as indicated above Continue oral Keflex due to past hospitalization for bacteremia Home medications as ordered Routine AM labs Code Status: DNR. Her PCP is Dr. Blevins at [facility] here in [place].
--- NOTE | 2017-08-26 14:13 | CR ---
Chest: 2 views of the chest were obtained. Comparison: Prior chest x-ray 08/25/17. Heart size at the upper limits of normal limits. Sternotomy is noted for CABG. Lungs are somewhat hyperinflated but clear. Scoliosis noted within the spine. Surgical clips are seen within the left upper abdomen. Impression: 1. Findings as noted above which appear fairly stable from prior exam. Nothing acute is seen. Diagnostic code #2
[2017-08-26] MEDS ORDERED: Simvastatin 40 MG Tab PO SCH (18:00)
[2017-08-27] MEDS: Cephalexin 500 MG Cap PO SCH ×2 (06:19→11:52)
[2017-08-27] MEDS ORDERED: Aspirin 81 MG Tab.Chew PO SCH (09:00)
[2017-08-27] MEDS: Insulin Aspart 100 Units/ML 3 ML Pen SUBCUT SCH ×2 (09:31→11:52)
[2017-08-27 09:33] VITALS: BP 130/44
[2017-08-27] MEDS: Primidone 50 MG Tab PO SCH (09:33)
[2017-08-27] MEDS: Furosemide 20 MG Tab PO SCH (09:33)
[2017-08-27] MEDS: Gabapentin 300 MG Cap PO SCH (09:33)
[2017-08-27] MEDS: Clopidogrel 75 MG Tab PO SCH (09:34)
[2017-08-27] MEDS: Pantoprazole 40 MG Tab.CR PO SCH (09:34)
[2017-08-27] MEDS: Isosorbide Mononitrate 60 MG Tab.ER PO SCH (09:34)
--- NOTE | 2017-08-27 11:34 | PCM.DCSUM1 ---
Discharge Summary - Hospital Course Free Text/Narrative:: Roma Aviles is an 86 yo female who is well known to this hospitalist team. She presented to the ED today after an episode of syncope. She was discharged 9 days prior after successful treatment for a UTI. She was discharged to care home and doing well. She was improving yesterday and had a follow-up appointment and seem fine. This morning she attended breakfast and looked well. After breakfast she was on the toilet and had an episode which she vomited, had large bowel movement, and then briefly passed out. She reportedly out for just seconds. Afterwards she seem lethargic but was otherwise okay. senior living staff called Tony who transported her here. Blood sugar was 240 at the scene. Patient state that she still feels kind of weak and tired, but otherwise has no complaint. She is not nauseated, denies headache, chest pain, or abdominal pain. She is currently on Keflex. In the ED temp was 36.2 Celsius. Pulse 76. Respiration 20. BP 101/35. Pulse ox 88%. She was placed on oxygen. White count was slightly elevated at 13.41. Hemoglobin 11.6. Hematocrit 37.9. She is macrocytic. Platelets are 348, 000. Neutrophils elevated at 75.9%. Sodium 139. Potassium high at 5.8. Chloride 103. Carbon dioxide 25. Anion gap was high at 16.8. BUN is high at 69. Creatinine high at 2.3. EGFR is 20. Glucose was 227. Lactic acid 1.2. Calcium 8.7. Bilirubin 0.2. Liver enzymes looked good with AST of 19, ALT of 17, alkaline phosphatase of 80. Troponin is negative at less than 0.017. BNP is slightly elevated at 585. Protein is 4.7. Albumin is low at 2.5. UA is otherwise negative with trace leukocyte esterase and rare urine bacteria. EKG shows a ventricular paced rhythm. Chest x-ray shows enlarged cardiac silhouette , no definite infiltrate. It is noted her creatinine at prior discharge was 1.2. She was given a 500 mL fluid bolus. Blood cultures were ordered. She has a lengthy history of: impaired vision, HLD, HTN, PVD, recurrent bronchitis, GERD, recurrent UTI, arthritis, osteoporosis, prior CVA, cognitive communication deficit, vascular dementia, type II DM on insulin. She was never a smoker. She subsequently admitted to the medical floor as observation status. She is a DNR. Her PCP is Dr. Blevins at [facility] here in [place]. - Discharge Data Discharge Date: 08/27/17 (admit date 08/25/17) Discharge Disposition: DC/Tfer to SNF 03 Condition: Good - Discharge Diagnosis/Problem(s) (1) Acute kidney injury SNOMED Code(s): 17900454 ICD Code: N17.9 - ACUTE KIDNEY FAILURE, UNSPECIFIED Status: Resolved Priority: High Current Visit: Yes (2) Dehydration SNOMED Code(s): 25780343 ICD Code: E86.0 - DEHYDRATION Status: Resolved Priority: High Current Visit: Yes (3) Hyperkalemia SNOMED Code(s): 56170748 ICD Code: E87.5 - HYPERKALEMIA Status: Resolved Priority: Medium Current Visit: Yes - Patient Summary/Data Operative Procedure(s) Performed: None Complications: None Consults: Consultations 08/25/17 19:14 Consult to Case Management [CONS] Routine OT Evaluation and Treatment [CONS] Routine PT Evaluation and Treatment [CONS] Routine Labs Pending at D/C: None Planned Operative Procedure(s) after DC: None Hospital Course: Patient DC instructions: I/P: Acute Kidney injury--improved to today -Acute on chronic -Bun 69 -Creatinine 2.3-->1.6-->1.0 -eGFR 20 -Baseline Creatinine appear around 1.2 and eGFR low to mid 40's -Likely poor oral hydration--good PO intake now -IV fluids as ordered; continue today -Monitor for worsening heart failure -Hold lisinopril tonight -Encourage oral hydration Dehydration --resolved, feels much better -Dry mucous membranes -Anion gap 16.8 -Hypotensive in ED - responded well to 500mL bolus -kidney function as above -Fluids -Likely cause of DUONG -Other orders as above Syncope -Reportedly passed out while on toilet around time of large bowel movement. -Likely result of dehydration and vasovagal response -Does not feel lightheaded or dizzy here -Continue to monitor -No telemetry concerns thus far Hyperkalemia--resolved/corrected -Potassium 5.8-->4.2 --> 3.6 today -Asymptomatic -monitor technician- unremarkable -Likely 2/2 dehydration -IV fluids -Monitor via labs -Continue lasix Elevation of WBC -13K -->16K --> 19K today -UA negative, CXR in ED negative, negative flu and mycoplasma -Repeat CXR is also negative -No GI symptoms -No known source of leukocytosis-- infectious workup negative. Recommend f/ up with repeat WBC next week with PCP. -She continues on Keflex for recent ecoli bacteremia; scheduled to be completed on 08/26/17; repeat BC this admission negative. -Afebrile, and otherwise asymptomatic Chronic: Impaired vision HLD HTN -stable PVD GERD recurrent UTI's arthritis osteoporosis hx/o CVA Cognitive communication deficit Vascular dementia Type II DM on insulin - continue home long acting insulin and begin low dose insulin sliding scale per protocol. Plan: Admit to medical floor on telemetry observation status for discharge planning---plan likely DC home/back to SNF today; f/up WBC next week as noted above. PT/OT Other orders as indicated above Continue oral Keflex due to past hospitalization for bacteremia Home medications as ordered Routine AM labs Code Status: DNR. Her PCP is Dr. Blevins at [facility] here in [place]. - Patient Instructions Diet: Drink 8-10+ Glasses/Day, Diabetic Diet Diet, Other: PUSH FLUIDS Activity: As Tolerated Driving: Do Not Drive Showering/Bathing: May Shower Notify Provider of: Fever, Increased Pain, Nausea and/or Vomiting - Discharge Plan Home Medications: Home Meds Acetaminophen 1,000 mg PO BID 08/11/17 [History] Aspirin [Darke Aspirin] 81 mg PO ASDIRECTED 08/11/17 [History] Ca Carbonate/Vitamin D3/Vit K [Calcium + D Soft Chewable Tab] 1 tab PO BID 08/11 [History] Clopidogrel [Plavix] 75 mg PO DAILY 08/11/17 [History] Diflunisal 500 mg PO TID 08/11/17 [History] Docusate Sodium [Colace] 100 mg PO QPM 08/11/17 [History] Furosemide 60 mg PO QAM 08/11/17 [History] Gabapentin [Neurontin] 300 mg PO TID 08/11/17 [History] Insulin Aspart [Novolog Flexpen] 0 - 10 units SUBCUT TID 08/11/17 [History] Insulin Aspart [Novolog Flexpen] 5 units SUBCUT TID 08/11/17 [History] Isosorbide Mononitrate [Imdur] 60 mg PO DAILY 08/11/17 [History] Lisinopril 10 mg PO DAILY 08/11/17 [History] Menthol [Zim's Max-Freeze] 1 applic TOP BID PRN 08/11/17 [History] Ondansetron [Zofran ODT] 4 mg PO Q6H PRN 08/11/17 [History] Pantoprazole [ProTONIX] 40 mg PO QAM 08/11/17 [History] Primidone [Mysoline] 100 mg PO TID 08/11/17 [History] Sennosides/Docusate Sodium [Senna-S] 2 tab PO BID PRN 08/11/17 [History] Simvastatin [Zocor] 40 mg PO QPM 08/11/17 [History] Insulin Detemir [Levemir Flextouch] 26 units SUBCUT QAM #1 pen 08/16/17 [Rx] Arginine/Glutamine/Calcium Hmb [Jus Packet] 1 each PO DAILY 08/25/17 [History] Fluocinonide 1 applic TP ASDIRECTED PRN 08/25/17 [History] Cephalexin [IJD: Cephalexin] 500 mg PO Q6HR #56 capsule 08/27/17 [Rx] Patient Handouts: Acute Kidney Injury, Hyperkalemia, [id number], Dehydration , Adult, [id number] Forms: ED Department Discharge Referrals: Stewart Blevins MD [Primary Care Provider] - - Discharge Summary/Plan Comment DC Time >30 min.: Yes (45min) - General Info Date of Service: 08/27/17 Admission Dx/Problem (Free Text: Admission Diagnosis/Problem Admission Diagnosis/Problem Acute kidney injury Feels "good" today; Slept well. Feels stronger overall. Eating without n/v. Taking adequate PO fluids. No n/v/d. No f/c/s overnight. Not coughing. Denies c/ o pain. Functional Status: Reports: Pain Controlled, Tolerating Diet, Ambulating, Urinating. Denies: New Symptoms - Review of Systems General: Reports: No Symptoms. Denies: Fever HEENT: Reports: No Symptoms Pulmonary: Reports: No Symptoms. Denies: Shortness of Breath, Cough Cardiovascular: Reports: No Symptoms. Denies: Chest Pain, Palpitations Gastrointestinal: Reports: No Symptoms. Denies: Abdominal Pain, Diarrhea, Nausea, Vomiting Genitourinary: Reports: No Symptoms Musculoskeletal: Reports: No Symptoms Skin: Reports: No Symptoms Neurological: Reports: No Symptoms Psychiatric: Reports: No Symptoms - Patient Data Vitals - Most Recent: Last Vital Signs Temp 97.9 F 08/27/17 08:37 Pulse 63 08/27/17 09:00 Resp 18 08/27/17 08:37 BP 130/44 L 08/27/17 08:37 Pulse Ox 92 L 08/27/17 08:37 Weight - Most Recent: 137 lb 8 oz I&O - Last 24 hours: Intake & Output 08/26/17 08/27/17 08/27/17 22:59 06:59 14:59 Intake Total 1220 850 120 Balance 1220 850 120 Lab Results - Last 24 hrs: Laboratory Results - last 24 hr 08/26/17 08/26/17 08/27/17 Range/Units 17:06 23:18 06:35 WBC (3.98-10.04) K/mm3 RBC (3.98-5.22) M/mm3 Hgb (11.2-15.7) gm/L Hct (34.1-44.9) % MCV (79.4-94.8) fl MCH (25.6-32.2) pg MCHC (32.2-35.5) g/dl RDW Std Deviation (36.4-46.3) fL Plt Count (182-369) K/mm3 MPV (9.4-12.3) fl Neut % (Auto) (34.0-71.1) % Lymph % (Auto) (19.3-51.7) % Snyder % (Auto) (4.7-12.5) % Eos % (Auto) (0.7-5.8) Baso % (Auto) (0.1-1.2) % Neut # (Auto) (1.56-6.13) K/mm3 Lymph # (Auto) (1.18-3.74) K/mm3 Snyder # (Auto) (0.24-0.36) K/mm3 Eos # (Auto) (0.04-0.36) K/mm3 Baso # (Auto) (0.01-0.08) K/mm3 Manual Slide Review Sodium (136-145) mEq/L Potassium (3.5-5.1) mEq/L Chloride (98-107) mEq/L Carbon Dioxide (21-32) mEq/L Anion Gap (5-15) BUN (7-18) mg/dL Creatinine (0.55-1.02) mg/dL Est Cr Clr Drug Dosing mL/min Estimated GFR (MDRD) (>60) mL/min BUN/Creatinine Ratio (14-18) Glucose (83-115) mg/dL POC Glucose 298 H 200 H 72 L (83-110) mg/dL Calcium (8.5-10.1) mg/dL Magnesium (1.8-2.4) mg/dl NT-Pro-B Natriuret Pep (0-450) pg/mL 08/27/17 08/27/17 Range/Units 07:05 07:05 WBC 19.98 H (3.98-10.04) K/mm3 RBC 3.29 L (3.98-5.22) M/mm3 Hgb 10.7 L (11.2-15.7) gm/L Hct 33.6 L (34.1-44.9) % MCV 102.1 H (79.4-94.8) fl MCH 32.5 H (25.6-32.2) pg MCHC 31.8 L (32.2-35.5) g/dl RDW Std Deviation 50.8 H (36.4-46.3) fL Plt Count 289 (182-369) K/mm3 MPV 11.8 (9.4-12.3) fl Neut % (Auto) 78.3 H (34.0-71.1) % Lymph % (Auto) 12.8 L (19.3-51.7) % Snyder % (Auto) 7.6 (4.7-12.5) % Eos % (Auto) 0.7 (0.7-5.8) Baso % (Auto) 0.3 (0.1-1.2) % Neut # (Auto) 15.68 H (1.56-6.13) K/mm3 Lymph # (Auto) 2.55 (1.18-3.74) K/mm3 Snyder # (Auto) 1.52 H (0.24-0.36) K/mm3 Eos # (Auto) 0.13 (0.04-0.36) K/mm3 Baso # (Auto) 0.05 (0.01-0.08) K/mm3 Manual Slide Review Abnormal smear Sodium 145 (136-145) mEq/L Potassium 3.6 (3.5-5.1) mEq/L Chloride 110 H (98-107) mEq/L Carbon Dioxide 24 (21-32) mEq/L Anion Gap 14.6 (5-15) BUN 33 H (7-18) mg/dL Creatinine 1.1 H (0.55-1.02) mg/dL Est Cr Clr Drug Dosing 31.11 mL/min Estimated GFR (MDRD) 47 (>60) mL/min BUN/Creatinine Ratio 30.0 H (14-18) Glucose 56 L (83-115) mg/dL POC Glucose (83-110) mg/dL Calcium 7.8 L (8.5-10.1) mg/dL Magnesium 2.4 (1.8-2.4) mg/dl NT-Pro-B Natriuret Pep 1292 H (0-450) pg/mL Med Orders - Current: Current Medications Acetaminophen (Tylenol) 650 mg PO Q4H PRN PRN Reason: Pain (Mild 1-3)/fever Aspirin (Aspirin) 81 mg PO Q48H [facility] Last Admin: 08/27/17 09:34 Dose: 81 mg Bisacodyl (Dulcolax) 5 mg PO DAILY PRN PRN Reason: Constipation Cephalexin (Keflex) 500 mg PO Q6HR [facility] Stop: 09/08/17 18:01 Last Admin: 08/27/17 06:19 Dose: 500 mg Clopidogrel Bisulfate (Plavix) 75 mg PO DAILY [facility] Last Admin: 08/27/17 09:34 Dose: 75 mg Dextrose/Water (Dextrose 50% In Water) 50 ml IVPUSH ASDIRECTED PRN PRN Reason: hypoglycemia Docusate Sodium (Colace) 100 mg PO BID PRN PRN Reason: Constipation Furosemide (Lasix) 60 mg PO QAM [facility] Last Admin: 08/27/17 09:33 Dose: 60 mg Gabapentin (Neurontin) 300 mg PO TID [facility] Last Admin: 08/27/17 09:33 Dose: 300 mg Insulin Aspart (Novolog) 0 unit SUBCUT QIDACANDBED [facility] PRN Reason: Protocol Last Admin: 08/27/17 09:31 Dose: Not Given Insulin Detemir (Levemir) 26 unit SUBCUT QAM [facility] Last Admin: 08/26/17 09:01 Dose: 26 unit Isosorbide Mononitrate (Imdur) 60 mg PO DAILY [facility] Last Admin: 08/27/17 09:34 Dose: 60 mg Ondansetron HCl (Zofran Odt) 4 mg PO Q6H PRN PRN Reason: nausea, able to take PO Ondansetron HCl (Zofran) 4 mg IV Q6H PRN PRN Reason: Nausea/Vomiting Pantoprazole Sodium (Protonix) 40 mg PO QAM [facility] Last Admin: 08/27/17 09:34 Dose: 40 mg Primidone (Mysoline) 100 mg PO TID [facility] Last Admin: 08/27/17 09:33 Dose: 100 mg Salsalate (Disalcid) 1,500 mg PO TIDMEALS [facility] Last Admin: 08/27/17 06:19 Dose: 1,500 mg Simvastatin (Zocor) 40 mg PO QPM [facility] Last Admin: 08/26/17 18:09 Dose: 40 mg Sodium Chloride (Saline Flush) 10 ml FLUSH ASDIRECTED PRN PRN Reason: Keep Vein Open Last Admin: 08/25/17 11:48 Dose: 10 ml Discontinued Medications Sodium Chloride (Normal Saline) 500 mls @ 1,000 mls/hr IV ONETIME ONE Stop: 08/25/17 12:07 Last Admin: 08/25/17 11:47 Dose: 1,000 mls/hr Sodium Chloride (Normal Saline) 1,000 mls @ 75 mls/hr IV ASDIRECTED [facility] Stop: 08/27/17 08:49 Last Admin: 08/26/17 11:12 Dose: 75 mls/hr - Exam Quality Assessment: Reports: DVT Prophylaxis General: Reports: Alert, Oriented, Cooperative, No Acute Distress HEENT: Reports: Pupils Equal, EOMI, Mucous Membr. Moist/Gower Neck: Reports: Supple Lungs: Reports: Clear to Auscultation, Normal Respiratory Effort, Decreased Breath Sounds (bases) Cardiovascular: Reports: Regular Rate, Regular Rhythm GI/Abdominal Exam: Normal Bowel Sounds, Soft, Non-Tender (Female) Exam: Deferred Rectal (Female) Exam: Deferred Back Exam: Reports: Normal Inspection Extremities: No Pedal Edema, Normal Capillary Refill Neurological: Reports: No New Focal Deficit Psy/Mental Status: Reports: Alert, Normal Affect, Normal Mood *Q Meaningful Use (DIS) - VTE *Q VTE Criteria *Q: - Stroke *Q Stroke Criteria *Q: - AMI *Q AMI Criteria *Q:
[2017-08-27] MEDS: Insulin Detemir 100 Units/ML 3 ML Pen SUBCUT SCH (11:50)
== END 2017-08-27 14:00 ==
LOC: JD.ED 10:56 → JD.MS 16:05 → UNDOADMOB 16:05 → JD.MS 16:43
PROVIDERS: ADMIT Internal Medicine Cardiovascular Disease; ATTEND Internal Medicine Cardiovascular Disease
DX: N17.9 Acute kidney failure, unspecified (principal); E86.0 Dehydration; E87.5 Hyperkalemia; Z88.8 Allergy status to other drugs, medicaments and biological substances; Z79.82 Long term (current) use of aspirin; Z79.899 Other long term (current) drug therapy; Z79.4 Long term (current) use of insulin; I10 Essential (primary) hypertension; E78.00 Pure hypercholesterolemia, unspecified; K21.9 Gastro-esophageal reflux disease without esophagitis; E11.9 Type 2 diabetes mellitus without complications; Z95.1 Presence of aortocoronary bypass graft; I73.9 Peripheral vascular disease, unspecified
CPT/HCPCS: 36415; 71010; 71020; 80048; 80053; 81001; 82962; 83605; 83735; 83880; 84484; 85025; 86140; 86738; 87040; 87641; 87804; 93005; 96360; 96361; 97116; 97162; 97166; 97530; 99284; A9270; G0378; J1815; J7040; J7050; P9612

== ENCOUNTER 2019-10-03 06:29 | Inpatient (IN) | payer OTHER, MEDICARE, MEDICAID ==
[2019-10-03] MEDS ORDERED: HYDROmorphone 0.5 MG/0.5 ML Syringe IVPUSH ONE (06:55)
[2019-10-03] MEDS ORDERED: Ondansetron 4 MG/2 ML SDV IVPUSH ONE (06:55)
--- NOTE | 2019-10-03 06:59 | EDM.PDOC ---
ED HPI GENERAL MEDICAL PROBLEM - General Chief Complaint: Abdominal Pain Stated Complaint: [facility] Time Seen by Provider: 10/03/19 06:48 Source of Information: Reports: Patient, Family (son) - History of Present Illness INITIAL COMMENTS - FREE TEXT/NARRATIVE: 88-year-old female presents to the ED from [facility] this morning after awakening with pain in her right upper quadrant of her abdomen about 0515 hrs. Pain is constant and rated as 5 out of 10. Does not seem to radiate through to her back. It is unchanged since it started. No associated nausea vomiting. Her bowels have been moving normally. He has a midline laparotomy wound but she can remember what was 4. She may well have had a cholecystectomy. She states she is incontinent of urine both stress and urge components. Denies any fever or chills. Onset: Today Onset Date: 10/03/19 Onset Time: 05:15 Duration: Minutes: Location: Reports: Abdomen (Right upper quadrant of the abdomen.) Quality: Reports: Ache, Other (Constant aching discomfort.) Severity: Moderate (It states that there is any colicky component to the pain.) Improves with: Reports: None Worsens with: Reports: Other Context: Denies: Activity, Exercise, Lifting, Sick Contact, Trauma, Other Associated Symptoms: Reports: Loss of Appetite, Malaise, Shortness of Breath. 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 (see below) (None to my knowledge) Right Upper Abdomen Pain Score (Numeric/FACES): 5 - Related Data Allergies Allergy/AdvReac Type Severity Reaction Status Date / Time atorvastatin Allergy Cannot Verified 10/03/19 06:35 Remember propranolol Allergy Cannot Verified 10/03/19 06:35 Remember topiramate [From Topamax] Allergy Cannot Verified 10/03/19 06:35 Remember Home Meds: Home Meds Acetaminophen 1,000 mg PO BID 08/11/17 [History] Aspirin [Williamson Aspirin] 81 mg PO ASDIRECTED 08/11/17 [History] Calcium Carb/Vitamin D3/Vit K1 [Calcium + D Soft Chewable Tab] 1 tab PO BID [History] Clopidogrel [Plavix] 75 mg PO DAILY 08/11/17 [History] Docusate Sodium [Colace] 100 mg PO QPM 08/11/17 [History] Furosemide 60 mg PO QAM 08/11/17 [History] Gabapentin [Neurontin] 300 mg PO TID 08/11/17 [History] Insulin Aspart [Novolog Flexpen] 0 - 10 units SUBCUT TID 08/11/17 [History] Isosorbide Mononitrate [Imdur] 60 mg PO DAILY 08/11/17 [History] Pantoprazole [ProTONIX] 20 mg PO QAM 08/11/17 [History] Primidone [Mysoline] 100 mg PO BEDTIME 08/11/17 [History] Sennosides/Docusate Sodium [Senna-S] 2 tab PO BID PRN 08/11/17 [History] Simvastatin [Zocor] 40 mg PO QPM 08/11/17 [History] Denosumab [Prolia] 1 ml SQ ASDIRECTED 09/02/18 [History] Donepezil [Aricept] 10 mg PO DAILY 09/02/18 [History] Insulin Glargine,Hum.Rec.Anlog [Toujeo Solostar] 24 unit SQ BID 09/02/18 [ History] Primidone 50 mg PO DAILY 09/02/18 [History] Propranolol [Inderal] 10 mg PO TID 09/02/18 [History] amLODIPine [Norvasc] 2.5 mg PO DAILY 09/02/18 [History] Acetaminophen 650 mg PO Q6H PRN 10/03/19 [History] Ipratropium/Albuterol Sulfate [Iprat-Albut 0.5-3(2.5) mg/3 ml] 3 ml IH QID 10/03 [History] Multivitamin [Multivitamins] 1 each PO DAILY 10/03/19 [History] Sennosides/Docusate Sodium [Senna-S] 2 each PO BID PRN 10/03/19 [History] Past Medical History HEENT History: Reports: Impaired Vision Other HEENT History: wears eyeglasses, dentures Cardiovascular History: Reports: High Cholesterol, Hypertension, PVD Other Cardiovascular History: PVD, hypokalemia Respiratory History: Reports: Bronchitis, Recurrent Gastrointestinal History: Reports: Chronic Constipation (Usually take stool softeners twice daily.), Colon Polyp, GERD, Hiatal Hernia Genitourinary History: Reports: Chronic Renal Insuffiency, Urinary Incontinence , UTI, 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 Restless leg syndrome.), Other (See Below) Psychiatric History: Reports: Dementia, Other (See Below) Other Psychiatric History: cognitive communication deficit, vascular dementia Endocrine/Metabolic History: Reports: Diabetes, Type II (Controlled with insulin.) Hematologic History: Reports: Other (See Below) Other Hematologic History: blood thinners, hyokalemia - Infectious Disease History Infectious Disease History: Reports: Chicken Pox, Measles, Mumps, Shingles - Past Surgical History HEENT Surgical History: Reports: Cataract Surgery Cardiovascular Surgical History: Reports: Coronary Artery Bypass, Coronary Artery Stent GI Surgical History: Reports: Appendectomy, Colonoscopy, Other (See Below) Female Surgical History: Reports: Hysterectomy, Salpingo-Oophorectomy Musculoskeletal Surgical History: Reports: Carpal Tunnel Social & Family History - Family History Family Medical History: Noncontributory - Tobacco Use Smoking Status *Q: Unknown Ever Smoked - Caffeine Use Caffeine Use: Reports: Coffee - Living Situation & Occupation Living situation: Reports: , Extended Care Facility Occupation: Retired (Early resides in [facility].) ED ROS GENERAL - Review of Systems Review Of Systems: See Below Constitutional: Reports: Malaise, Fatigue, Decreased Appetite. Denies: Fever, Chills HEENT: Reports: Glasses, Other (Poor visual acuity.) Respiratory: Reports: Shortness of Breath. Denies: Wheezing, Pleuritic Chest Pain, Cough Cardiovascular: Reports: Blood Pressure Problem, Dyspnea on Exertion (Trace around the ankles at times.), Edema. Denies: Chest Pain, Claudication, Lightheadedness, Orthopnea Endocrine: Reports: Fatigue GI/Abdominal: Reports: Abdominal Pain, Constipation (Right upper quadrant abdominal pain that awoke from sleep this morning.), Decreased Appetite ( Decreased appetite today.). Denies: Nausea, Stool Incontinence, Vomiting : Reports: Frequency, Incontinence (Wears depends.), Urgency Musculoskeletal: Reports: Joint Pain (Knees hips lower back and neck and shoulders at times.) Skin: Reports: Bruising (Bruises easily as she is on Plavix.) Neurological: Reports: Numbness, Paresthesia (Both lower extremities.), Tingling , Tremors (Both), Difficulty Walking, Other. Denies: Trouble Speaking ( Peripheral neuropathy both lower extremities.) Psychiatric: Reports: Anxiety Hematologic/Lymphatic: Reports: No Symptoms Immunologic: Reports: No Symptoms ED EXAM, GI/ABD - Physical Exam Exam: See Below Exam Limited By: No Limitations General Appearance: Alert, WD/WN, No Apparent Distress, Other (Vital signs are stable. Temperature 36.9 heart rate was 58 in sinus on the monitor respiratory rate is 18. No socks is low at 85%. BP is 146/65) Eyes: Bilateral: Normal Appearance (No scleral icterus) Throat/Mouth: Normal Inspection, Normal Lips, Normal Oropharynx, Other (Tongue is mildly dry and coated) Head: Atraumatic, Normocephalic Neck: Normal Inspection, Limited Range of Motion. No: Carotid Bruit, Lymphadenopathy (L), Lymphadenopathy (R), Thyromegaly Respiratory/Chest: No Respiratory Distress, Lungs Clear, Decreased Breath Sounds (Decreased air entry to the lower 20% of lung davis.), Rales (Few fine rales left base) Cardiovascular: Regular Rate, Rhythm, No Gallop, Systolic Murmur (There is an early pansystolic ejection murmur graded one or less at the left lower sternal border.). No: Normal Peripheral Pulses, No Edema GI/Abdominal Exam: Soft (Bowel sounds are slightly more active than normal and all 4 quadrants.), No Organomegaly, No Abnormal Bruit, No Mass, Pelvis Stable, Tender (Localizes tenderness to the right upper quadrant with a positive Willingham sign.), Abnormal Bowel Sounds. No: Guarding, Rigid, Rebound Back Exam: Normal Inspection, Full Range of Motion, Other (Mild kyphosis thoracic spine). No: CVA Tenderness (L), CVA Tenderness (R) Extremities: Pedal Edema (Trace pedal edema around the ankles.) Neurological: Alert, CN II-XII Intact, Normal Cognition Psychiatric: Normal Affect, Normal Mood Skin Exam: Warm, Dry, Intact, No Rash, Other (Slightly sallow in color.) EKG INTERPRETATION EKG Date: 10/03/19 Time: 07:37 Rhythm: NSR Rate (Beats/Min): 69 Hodges: Normal P-Wave: Present (First-degree AV block) QRS: Other (Q-wave in lead V1 only. Nonspecific intraventricular conduction delay.) ST-T: Other (Diffuse T-wave changes in limb and precordial leads. T-segment depression appreciated in lead V6 and minimally in V1 and aVL. Cannot rule out lateral wall ischemia.) EKG Interpretation Comments: ECG #2 shows an ectopic atrial rhythm is P waves are not visualized but the rhythm is regular. Was after receiving epinephrine as part of her resuscitation phase. She now has Q waves in V1 and near Q waves in V2 and V3 with upgoing ST segments. There remains mild ST segment depression in V6 and V5. Diffuse T-wave changes and multiple limb and precordial leads. She is alert and talking to the nurses intermittently. NE as appraised of the situation. is here to give her last rights. Course - Vital Signs Last Recorded V/S: Last Vital Signs Temp 36.9 C 10/03/19 06:36 Pulse 77 10/03/19 10:37 Resp 16 10/03/19 10:37 BP 103/60 10/03/19 10:37 Pulse Ox 96 10/03/19 10:37 - Orders/Labs/Meds Orders: Active Orders 24 hr Category Date Time Status EKG Documentation Completion [RC] STAT Care 10/03/19 06:57 Active Oxygen Therapy [RC] ASDIRECTED Care 10/03/19 07:09 Active CULTURE BLOOD [BC] Stat Lab 10/03/19 07:50 Received CULTURE URINE [RM] Stat Lab 10/03/19 10:03 Ordered Sodium Chloride 0.9% [Normal Saline] 1,000 ml Med 10/03/19 07:45 Active IV ASDIRECTED Blood Culture x2 Reflex Set [OM.PC] Stat Oth 10/03/19 07:19 Ordered Medication Orders Sodium Chloride (Normal Saline) 1,000 mls @ 999 mls/hr IV ASDIRECTED BRIAN Last Admin: 10/03/19 07:35 Dose: 999 mls/hr Labs: Laboratory Tests 10/03/19 10/03/19 10/03/19 Range/Units 06:40 06:40 06:40 WBC 9.81 (3.98-10.04) K/mm3 RBC 3.98 (3.98-5.22) M/mm3 Hgb 12.5 (11.2-15.7) gm/dl Hct 38.8 (34.1-44.9) % MCV 97.5 H (79.4-94.8) fl MCH 31.4 (25.6-32.2) pg MCHC 32.2 (32.2-35.5) g/dl RDW Std Deviation 49.3 H (36.4-46.3) fL Plt Count 262 (182-369) K/mm3 MPV 12.7 H (9.4-12.3) fl Neut % (Auto) 53.7 (34.0-71.1) % Lymph % (Auto) 28.3 (19.3-51.7) % Maury % (Auto) 13.8 H (4.7-12.5) % Eos % (Auto) 3.3 (0.7-5.8) Baso % (Auto) 0.7 (0.1-1.2) % Neut # (Auto) 5.27 (1.56-6.13) K/mm3 Lymph # (Auto) 2.78 (1.18-3.74) K/mm3 Maury # (Auto) 1.35 H (0.24-0.36) K/mm3 Eos # (Auto) 0.32 (0.04-0.36) K/mm3 Baso # (Auto) 0.07 (0.01-0.08) K/mm3 PT 11.2 (9.7-12.0) SECONDS INR 1.03 APTT 24 (22-31) SECONDS Sodium 140 (136-145) mEq/L Potassium 4.0 (3.5-5.1) mEq/L Chloride 103 (98-107) mEq/L Carbon Dioxide 28 (21-32) mEq/L Anion Gap 13.0 (5-15) BUN 22 H (7-18) mg/dL Creatinine 1.1 H (0.55-1.02) mg/dL Est Cr Clr Drug Dosing TNP Estimated GFR (MDRD) 47 (>60) mL/min BUN/Creatinine Ratio 20.0 H (14-18) Glucose 156 H (83-115) mg/dL Hemoglobin A1c (4.50-6.20) % Lactic Acid (0.4-2.0) mmol/L Calcium 8.9 (8.5-10.1) mg/dL Magnesium 2.2 (1.8-2.4) mg/dl Total Bilirubin 0.2 (0.2-1.0) mg/dL AST 22 (15-37) U/L ALT 22 (14-59) U/L Alkaline Phosphatase 57 (46-116) U/L Troponin I < 0.017 (0.00-0.056) ng/mL C-Reactive Protein 1.1 H* (<1.0) mg/dL NT-Pro-B Natriuret Pep (0-450) pg/mL Total Protein 7.8 (6.4-8.2) g/dl Albumin 3.0 L (3.4-5.0) g/dl Globulin 4.8 gm/dL Albumin/Globulin Ratio 0.6 L (1-2) Lipase 36 L (73-393) U/L TSH 3rd Generation (0.358-3.74) uIU/mL Urine Color (Yellow) Urine Appearance (Clear) Urine pH (5.0-8.0) Ur Specific [place] (1.005-1.030) Urine Protein (Negative) Urine Glucose (UA) (Negative) Urine Ketones (Negative) Urine Occult Blood (Negative) Urine Nitrite (Negative) Urine Bilirubin (Negative) Urine Urobilinogen (0.2-1.0) Ur Leukocyte Esterase (Negative) Urine RBC (0-5) /hpf Urine WBC (0-5) /hpf Urine WBC Clumps (NOT SEEN) /hpf Ur Epithelial Cells (0-5) /hpf Urine Bacteria (FEW) /hpf Hyaline Casts (0-5) /lpf Urine Mucus (FEW) /hpf 10/03/19 10/03/19 10/03/19 Range/Units 06:40 06:40 06:40 WBC (3.98-10.04) K/mm3 RBC (3.98-5.22) M/mm3 Hgb (11.2-15.7) gm/dl Hct (34.1-44.9) % MCV (79.4-94.8) fl MCH (25.6-32.2) pg MCHC (32.2-35.5) g/dl RDW Std Deviation (36.4-46.3) fL Plt Count (182-369) K/mm3 MPV (9.4-12.3) fl Neut % (Auto) (34.0-71.1) % Lymph % (Auto) (19.3-51.7) % Maury % (Auto) (4.7-12.5) % Eos % (Auto) (0.7-5.8) Baso % (Auto) (0.1-1.2) % Neut # (Auto) (1.56-6.13) K/mm3 Lymph # (Auto) (1.18-3.74) K/mm3 Maury # (Auto) (0.24-0.36) K/mm3 Eos # (Auto) (0.04-0.36) K/mm3 Baso # (Auto) (0.01-0.08) K/mm3 PT (9.7-12.0) SECONDS INR APTT (22-31) SECONDS Sodium (136-145) mEq/L Potassium (3.5-5.1) mEq/L Chloride (98-107) mEq/L Carbon Dioxide (21-32) mEq/L Anion Gap (5-15) BUN (7-18) mg/dL Creatinine (0.55-1.02) mg/dL Est Cr Clr Drug Dosing Estimated GFR (MDRD) (>60) mL/min BUN/Creatinine Ratio (14-18) Glucose (83-115) mg/dL Hemoglobin A1c 7.70 H (4.50-6.20) % Lactic Acid (0.4-2.0) mmol/L Calcium (8.5-10.1) mg/dL Magnesium (1.8-2.4) mg/dl Total Bilirubin (0.2-1.0) mg/dL AST (15-37) U/L ALT (14-59) U/L Alkaline Phosphatase (46-116) U/L Troponin I (0.00-0.056) ng/mL C-Reactive Protein (<1.0) mg/dL NT-Pro-B Natriuret Pep 1738 H (0-450) pg/mL Total Protein (6.4-8.2) g/dl Albumin (3.4-5.0) g/dl Globulin gm/dL Albumin/Globulin Ratio (1-2) Lipase (73-393) U/L TSH 3rd Generation 2.098 (0.358-3.74) uIU/mL Urine Color (Yellow) Urine Appearance (Clear) Urine pH (5.0-8.0) Ur Specific [place] (1.005-1.030) Urine Protein (Negative) Urine Glucose (UA) (Negative) Urine Ketones (Negative) Urine Occult Blood (Negative) Urine Nitrite (Negative) Urine Bilirubin (Negative) Urine Urobilinogen (0.2-1.0) Ur Leukocyte Esterase (Negative) Urine RBC (0-5) /hpf Urine WBC (0-5) /hpf Urine WBC Clumps (NOT SEEN) /hpf Ur Epithelial Cells (0-5) /hpf Urine Bacteria (FEW) /hpf Hyaline Casts (0-5) /lpf Urine Mucus (FEW) /hpf 10/03/19 10/03/19 Range/Units 07:23 08:10 WBC (3.98-10.04) K/mm3 RBC (3.98-5.22) M/mm3 Hgb (11.2-15.7) gm/dl Hct (34.1-44.9) % MCV (79.4-94.8) fl MCH (25.6-32.2) pg MCHC (32.2-35.5) g/dl RDW Std Deviation (36.4-46.3) fL Plt Count (182-369) K/mm3 MPV (9.4-12.3) fl Neut % (Auto) (34.0-71.1) % Lymph % (Auto) (19.3-51.7) % Maury % (Auto) (4.7-12.5) % Eos % (Auto) (0.7-5.8) Baso % (Auto) (0.1-1.2) % Neut # (Auto) (1.56-6.13) K/mm3 Lymph # (Auto) (1.18-3.74) K/mm3 Maury # (Auto) (0.24-0.36) K/mm3 Eos # (Auto) (0.04-0.36) K/mm3 Baso # (Auto) (0.01-0.08) K/mm3 PT (9.7-12.0) SECONDS INR APTT (22-31) SECONDS Sodium (136-145) mEq/L Potassium (3.5-5.1) mEq/L Chloride (98-107) mEq/L Carbon Dioxide (21-32) mEq/L Anion Gap (5-15) BUN (7-18) mg/dL Creatinine (0.55-1.02) mg/dL Est Cr Clr Drug Dosing Estimated GFR (MDRD) (>60) mL/min BUN/Creatinine Ratio (14-18) Glucose (83-115) mg/dL Hemoglobin A1c (4.50-6.20) % Lactic Acid 1.4 (0.4-2.0) mmol/L Calcium (8.5-10.1) mg/dL Magnesium (1.8-2.4) mg/dl Total Bilirubin (0.2-1.0) mg/dL AST (15-37) U/L ALT (14-59) U/L Alkaline Phosphatase (46-116) U/L Troponin I (0.00-0.056) ng/mL C-Reactive Protein (<1.0) mg/dL NT-Pro-B Natriuret Pep (0-450) pg/mL Total Protein (6.4-8.2) g/dl Albumin (3.4-5.0) g/dl Globulin gm/dL Albumin/Globulin Ratio (1-2) Lipase (73-393) U/L TSH 3rd Generation (0.358-3.74) uIU/mL Urine Color Light yellow (Yellow) Urine Appearance Clear (Clear) Urine pH 7.0 (5.0-8.0) Ur Specific [place] 1.020 (1.005-1.030) Urine Protein 1+ H (Negative) Urine Glucose (UA) Negative (Negative) Urine Ketones Negative (Negative) Urine Occult Blood Trace-intact H (Negative) Urine Nitrite Positive H (Negative) Urine Bilirubin Negative (Negative) Urine Urobilinogen 0.2 (0.2-1.0) Ur Leukocyte Esterase 1+ H (Negative) Urine RBC 0-5 (0-5) /hpf Urine WBC 10-20 H (0-5) /hpf Urine WBC Clumps Few (NOT SEEN) /hpf Ur Epithelial Cells 0-5 (0-5) /hpf Urine Bacteria Many H (FEW) /hpf Hyaline Casts 0-5 (0-5) /lpf Urine Mucus Not seen (FEW) /hpf Meds: Medications Generic Name Dose Route Start Last Admin Trade Name Kevin PRN Reason Stop Dose Admin Sodium Chloride 1,000 mls @ 999 mls/hr 10/03/19 07:45 10/03/19 07:35 Normal Saline IV 999 mls/hr ASDIRECTED BRIAN Administration Discontinued Medications Generic Name Dose Route Start Last Admin Trade Name Kevin PRN Reason Stop Dose Admin Epinephrine HCl 1 mg 10/03/19 07:45 10/03/19 07:47 Epinephrine 1:10,000 IVPUSH 10/03/19 07:46 1 mg ONETIME ONE Administration Furosemide 60 mg 10/03/19 08:15 10/03/19 08:53 Lasix IVPUSH 10/03/19 08:16 60 mg NOW ONE Administration Hydromorphone HCl 0.5 mg 10/03/19 06:55 10/03/19 07:03 Dilaudid IVPUSH 10/03/19 06:56 0.5 mg ONETIME ONE Administration Sodium Chloride 1,000 mls @ 100 mls/hr 10/03/19 07:00 10/03/19 07:02 Normal Saline IV 100 mls/hr ASDIRECTED BRIAN Administration Levofloxacin/Dextrose 750 mg/ 150 mls @ 100 mls/hr 10/03/19 10:04 10/03/19 10 :25 Premix IV 10/03/19 11:33 100 mls/hr ONETIME ONE Administration Metoclopramide HCl 5 mg 10/03/19 08:55 10/03/19 09:05 Reglan IVPUSH 10/03/19 08:56 5 mg ONETIME ONE Administration Naloxone HCl 0.4 mg 10/03/19 08:01 10/03/19 07:43 Narcan IVPUSH 10/03/19 08:02 0.4 mg ONETIME ONE Administration Ondansetron HCl 4 mg 10/03/19 06:55 10/03/19 07:02 Zofran IVPUSH 10/03/19 06:56 4 mg ONETIME ONE Administration - Radiology Interpretation Free Text/Narrative:: Elderly female from [facility] presents to the ED due to right upper quadrant abdominal pain that awoke from sleep at 0515 hrs. this morning. She localizes the pain very well to the right costal margin component with biliary colic. Bowel sounds are over very active in all 4 quadrants and she has a history of constipation. Patient smells like a renal dialysis patient and appears to be incontinent of urine.. She is hypoxic on room air 90%. Drips down as low as 86%. I will place her on 2 L/m. Plan routine labs including a chest x- ray and one view of the abdomen. Acquired CT the abdomen or ultrasound of the gallbladder. She has a large midline laparotomy wound for which she doesn't know what was done. Question of a previous cholecystectomy. She has an insulin- dependent diabetic. She has not taken any insulin this morning. IV will be normal saline at 100 mils per hour. Given Dilaudid 0.5 mg IV for pain relief with Zofran 4 mg IV for nausea relief. - Re-Assessments/Exams Free Text/Narrative Re-Assessment/Exam: 10/03/19 07:18 blood pressure is now recorded at 91/46. Therefore I will pursue blood cultures 2. 10/03/19 07:35 I was summoned to the x-ray suite because the patient became unresponsive after she was sat up. I suspect she developed significant hypotension when she sat up. Possible also increased vagal response with dropping of heart rate and bradycardia rhythm strip. It's unclear how close to injection of Dilaudid this was as well. Rarely she had a similar type event a year and a half ago and discussion was entertained about a pacemaker at that time but the family declined. Pupils were found to be rather pinpoint. Her heart rate drifted down to the 30s and she seemed to have a almost asystole transiently. She did this twice further during the resuscitation phase in the ED. Seemed to develop a transient complete heart block. Narcan 0.4mg was given but did not seem to do anything .IV is normal saline he is now running at open. She is diaphoretic beads of sweat on her forehead. 10/03/19 08:00 patient did receive0.0. 4 mg of Narcan IV with no real change in affect. Pupils remain pinpoint and unresponsive to light. Should blood pressure dropped transiently and related to bradycardia which appeared to be a complete heart block with an intermittent basis 2. She was given 1 mg of epinephrine IV. This did produce a tachycardia in the 130s with loss of the P-wave. Blood pressure is elevated [id number]. Blood culture obtained from the right femoral vein. Further blood draw from the lab at the same time. Her CODE STATUS is DO NOT RESUSCITATE. She'll be for chest x-ray and CT scan of her head now. Pacer pads have been placed. Free Text/Narrative Re-Assessment/Exam: 10/03/19 08:15 CT of the chest and abdomen was performed in August 2018 and I reviewed this. 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 She had no gallstones identified in her gallbladder at that time. She noted within the coronary arteries. Treated done today reveals poor inspirational film. Diffuse vascular congestion pattern suggesting pulmonary edema. There appears to be a small left-sided pleural effusion. What is upper limits of normal. The abdomen suggest stool throughout the right hemicolon and hepatic flexure. Results of stool in the rectal vault. There is no signs of bowel obstruction. Will give Lasix 60 mg IV at this time. Current vital signs again reveal no blood pressure of 95 on 48. Heart rate 71 and sinus with first-degree AV block. O2 sats 96%. 10/03/19 08:18 Labs reveal a normal white count at 9.81. Auto differential shows 54% neutrophils. Hemoglobin is 12.5 with hematocrit of 38.8 MCV elevated at 97.5. Platelet count 262,000. PT is 11.2 with an INR 1.03. PTT is 24. Sodium 140 with potassium of 4.0. anion gap is 13 with a bicarbonate 28. And a gap is 13.0. BUNs 22 with a creatinine of 1.1. GFR is 47. Glucose 156 hemoglobin A1c is 7.70. Calcium is 8.9 magnesium 2.2. Liver function is normal troponin I is less than 0.017. C-reactive protein was 1.1 total protein was 7.8. Albumin fraction 8.0. Lipase normal at 36. 10/03/19 08:44 blood pressure is currently 106/67. CT head is unchanged from previous CTs with a large infarct in the left frontal temporal lobe and a smaller infarct on the right left temporal frontal lobe. Unchanged from previous studies. Diminished density is noted within portions of the periventricular white matter most likely due to combination of old white matter infarcts and small vessel ischemic demyelination change. This finding is also felt to be stable from previous exam. Old infarct within the right frontal lobe which is stable. No intracranial bleeding or mass effect identified. Marked evidence of degenerative change appreciated with prominent lateral ventricles and sulci. Diffuse small vessel ischemic changes in both basal ganglia. Resection calcification in the ganglia. There is opacification of the left mastoid sinus which is an interval change from previous exam soft tissue structures also seen within the left middle ear cavity. 10/03/19 08:47 and pressure is 101/61 with heart rate is 90 and sinus. O2 sats 96% on 3 L.Lactic acid came back at 1.4. BNP is 1738. TSH is 2.0 normal. Lipase is normal at 36. Urinalysis is pending. 10/03/19 08:55 She is mouth breathing and therefore that's why her sats sometimes drop below 90%. Dry heaving at times still. Will give Reglan 5 mg IV. We'll try the nasal prongs by mouth this fails then we'll place her on a simple mask at 8 L. awaiting urinalysis. 10/03/19 09:26 Urinalysis is not yet done. Patient is undergoing ultrasound of her gallbladder liver at this time. Pressures down to 95/53. Heart rate is 74 O2 sats 97%. 10/03/19 10:02 Urinalysis shows slightly yellow color with 1+ proteinuria trace of occult blood positive nitrates 1+ leukocyte esterase and 10-20 WBCs per power field with few clumps appreciated many bacteria noted. Urine will be sent for culture. I will give her Levaquin 750 mg IV. Suggest that her Aricept be placed on hold while she is on this medication as both prolong the QT interval. Ultrasound of the liver and gallbladder shows slightly dilated intrahepatic ducts. Gallbladder is distended and has slightly thickened vera but no sign of pericholecystic fluid to suggest acute cholecystitis. No gallstones are evident. Common bile duct is slightly dilated at 1.1 cm. Uncertain as to etiology although labs don't support any sign of biliary tree obstruction. It therefore it appears the constipation was the likely cause of her right upper quadrant abdominal pain. Suspect lower urinary tract infection as she has a normal white count with no left shift to suggest pyelonephritis. I will discuss the case with the on-call hospitalist with a view to admission to the hospital for observation status. 10/03/19 10:[address] May mission planner hospitalist and he is accepted care of Mrs. Aviles She is coming in for urinary tract infection and need for short-term antibiotics. Possible developing right-sided pyelonephritis. Her right upper abdominal pain. She is also constipated with increased stool right and left hemicolon's. She is in congestive heart failure which needs to be tuned up. Await culture reports on urine and blood. 10/03/19 11:14 she did have another cardiac event where she developed significant bradycardia arrhythmia down in the 30s and for a while even asystole sure he responded to stimuli and was awake and alert. She did feel slightly nauseated. The family is not keen on her going for pacemaker. I am reluctant to give her any further antinausea medications as she's had metoclopramide and Zofran and has a prolonged QT interval already. Departure - Departure Time of Disposition: 10:29 Disposition: Admitted As Inpatient 65 Condition: Poor Clinical Impression: Right upper quadrant abdominal pain, Bradycardia with 31-40 beats per minute Urinary tract infection Qualifiers: Urinary tract infection type: acute cystitis Hematuria presence: without hematuria Qualified Code(s): N30.00 - Acute cystitis without hematuria Constipation Qualifiers: Constipation type: slow transit constipation Qualified Code(s): K59.01 - Slow transit constipation Congestive heart failure Qualifiers: Heart failure type: combined systolic and diastolic Heart failure chronicity: acute on chronic Qualified Code(s): I50.43 - Acute on chronic combined systolic (congestive) and diastolic (congestive) heart failure Dementia Qualifiers: Dementia type: Alzheimer's disease Alzheimer's disease onset: late-onset Type 2 diabetes mellitus Qualifiers: Diabetes mellitus alf insulin use: with alf use Diabetes mellitus complication status: with unspecified complications Qualified Code(s): E11.8 - Type 2 diabetes mellitus with unspecified complications - Discharge Information *PRESCRIPTION DRUG MONITORING PROGRAM REVIEWED*: Not Applicable *COPY OF PRESCRIPTION DRUG MONITORING REPORT IN PATIENT [place]UD[place]: Not Applicable Sepsis Event Note - Evaluation Sepsis Screening Result: No Definite Risk - Focused Exam Vital Signs: Vital Signs Temp Pulse Resp 10/03/19 06:36 36.9 C 58 L 18 Date Exam was Performed: 10/03/19 Time Exam was Performed: 12:22 - My Orders Last 24 Hours: My Active Orders 10/03/19 06:57 EKG Documentation Completion [RC] STAT 10/03/19 07:09 Oxygen Therapy [RC] ASDIRECTED 10/03/19 07:19 Blood Culture x2 Reflex Set [OM.PC] Stat 10/03/19 07:45 Sodium Chloride 0.9% [Normal Saline] 1,000 ml IV ASDIRECTED 10/03/19 07:50 CULTURE BLOOD [BC] Stat 10/03/19 10:03 CULTURE URINE [RM] Stat - Assessment/Plan Last 24 Hours: My Active Orders 10/03/19 06:57 EKG Documentation Completion [RC] STAT 10/03/19 07:09 Oxygen Therapy [RC] ASDIRECTED 10/03/19 07:19 Blood Culture x2 Reflex Set [OM.PC] Stat 10/03/19 07:45 Sodium Chloride 0.9% [Normal Saline] 1,000 ml IV ASDIRECTED 10/03/19 07:50 CULTURE BLOOD [BC] Stat 10/03/19 10:03 CULTURE URINE [RM] Stat
[2019-10-03] MEDS ORDERED: Sodium Chloride 0.9% 1,000 ML IV SCH ×2 (07:00→07:45)
[2019-10-03 07:31] LABS: HEMOGLOBIN A1C 7.7 % (4.50-6.20)
[2019-10-03] MEDS ORDERED: EPINEPHrine 1:10,000 1 MG/10 ML Syringe IVPUSH ONE (07:45)
[2019-10-03] MEDS ORDERED: Naloxone 0.4 MG/ML SDV IVPUSH ONE (08:01)
[2019-10-03] MEDS ORDERED: Furosemide 40 MG/4 ML VIAL IVPUSH ONE (08:15)
--- NOTE | 2019-10-03 08:50 | CR ---
Abdomen: Supine view of the abdomen was obtained. Comparison: No prior abdominal imaging. Vascular calcification is seen. Surgical clips are noted within the left upper abdomen as well as single surgical clip seen within the right pelvis. Degenerative change and scoliosis are noted within the spine. Bowel gas pattern appears normal. Impression: 1. Findings as noted above. 2. Nothing acute is appreciated on supine abdominal x-ray. Diagnostic code #2 This report was dictated in [place] Standard Time
[2019-10-03] MEDS ORDERED: Metoclopramide 10 MG/2 ML SDV IVPUSH ONE (08:55)
--- NOTE | 2019-10-03 09:04 | CR ---
Chest: Portable view of the chest was obtained. Comparison: Prior chest x-ray of 08/26/17. Heart size and mediastinum are within normal limits for portable technique. Previous sternotomy is noted. Additional surgical clips are seen within the upper left abdomen. Slight parenchymal density is noted within the left base which is similar to prior study presumably due to pleural thickening or parenchymal scarring. Lungs otherwise are clear. Bony structures are osteopenic. No definite acute finding is seen within the osseous structures. Impression: 1. Findings as noted above. 2. Nothing acute is suspected on portable chest x-ray. Diagnostic code #2 This report was dictated in [place] Standard Time
--- NOTE | 2019-10-03 09:10 | CT ---
Head CT Technique: Multiple axial sections through the brain were obtained. Intravenous contrast was not utilized. Comparison: Prior head CT study of 08/11/17. Findings: There is an area of encephalomalacia within the left posterior frontal and anterior temporal regions compatible with probable old infarct. This is stable from previous exam. Diminished density is noted within portions of the periventricular white matter most likely due to combination of old white matter infarcts and small vessel ischemic demyelination change. This finding is also felt to be stable from previous exam. Old infarct is noted within the right frontal lobe which is stable. No other abnormal parenchymal densities are seen. No evidence of intracranial hemorrhage. No midline shift or mass effect is seen. Moderate generalized atrophy is noted. Slight basal ganglia calcification is noted which is not unusual for a patient of this age. Atherosclerotic calcification seen within the vertebral vessels and within the carotid siphon. Bone window settings were reviewed. Mild areas mucosal thickening seen within the maxillary and ethmoid sinuses which is felt to be chronic and pre-existing. There is opacification of the left mastoid sinus which is an interval change from previous exam. Soft tissue material also seen within the left middle ear cavity. No acute calvarial finding is seen. Impression: 1. Opacified left mastoid sinus as well as soft tissue material within the middle ear cavity on the left side. This finding is an interval change from previous exam and findings raise the possibility of left-sided otitis media and mastoiditis. 2. Senescent change as noted above which is felt to be stable from prior head CT exam. 3. No acute intracranial abnormality is identified. Diagnostic code #3 This report was dictated in [place] Standard Time
[2019-10-03] MEDS ORDERED: Levofloxacin/Dextrose 5%-Water 750 MG in Premix Bag 1 BAG IV ONE (10:04)
--- NOTE | 2019-10-03 10:15 | US ---
Limited abdominal ultrasound: Multiple real-time images of the right upper abdomen were obtained. Comparison: Prior abdominal x-ray performed earlier on the same day (7:26 AM), previous CT abdomen and pelvis study of 09/02/18 is also available. Liver shows no focal parenchymal abnormality. Gallbladder shows no shadowing gallstones. No gallbladder wall thickening is appreciated. Common bile duct is dilated to 1.1 cm. Gallbladder also appears slightly distended. Visualized portions of the right kidney show no hydronephrosis. Pancreas is obscured by bowel. Main portal vein shows normal hepatopedal flow. Impression: 1. Dilated CBD at 1.1 cm. Uncertain as to etiology. Gallbladder may also be somewhat dilated. No gallstones are seen. 2. Obscured pancreas. 3. No additional abnormality is identified. Diagnostic code #3 This report was dictated in [place] Standard Time
--- NOTE | 2019-10-03 10:33 | PCM.SN ---
- Free Text/Narrative Note: 0736 called to ER room 3 code blue pt being oxygenated VSS Dr. Ohara dismissed me at 0741.
[2019-10-03] MEDS ORDERED: Acetaminophen 325 MG Tab PO PRN (12:46)
[2019-10-03] MEDS ORDERED: Ondansetron 4 MG/2 ML SDV IV PRN (12:46)
--- NOTE | 2019-10-03 12:46 | PCM.HP.2 ---
H&P History of Present Illness - General Date of Service: 10/03/19 Admit Problem/Dx: Admission Diagnosis/Problem Admission Diagnosis/Problem Abdominal pain - History of Present Illness Initial Comments - Free Text/Narative: 88-year-old female with history of hypertension, peripheral vascular disease, GERD, recurrent UTI, arthritis, osteoporosis, CVA, vascular dementia, type 2 diabetes on insulin, coronary artery disease with bypass surgery, hyperlipidemia presents to the emergency room with right upper quadrant pain. Roma lives at [facility] and woke up at 515 this morning with right upper quadrant pain. Patient has had Dilaudid, therefore most of the history is obtained through the emergency room notes. Patient is constant and does not radiate. Pain is 5 out of 10. She does have some nausea now but no vomiting. She states that her bowels have been moving normally. She does have a midline laparotomy scar. Patient does have stress and urge incontinence of urine. No fever or chills. In the emergency room she had what appears to be a vasovagal episode in the x- ray suite. She became unresponsive when she sat up. Emergency room physician responded and her heart rate was in the 30s. She was given Narcan and epinephrine. Her heart rate did respond with tachycardia in the 130s. She did have loss of her P wave in her blood pressure was elevated. Repeat EKG after the epinephrine per the emergency room physician, it is not available, showed an ectopic atrial rhythm. P waves were not visualized but rhythm was regular. Patient did develop Q waves in V1 and near Q waves in V2 and V3 with upgoing ST segments. There remained mild ST segment depression in V6 and V5. Diffuse T wave changes in multiple limb and precordial leads. Patient's CODE STATUS is DNR/DNI and she reaffirmed it with me on admission. Right Upper Abdomen Pain Score (Numeric/FACES): 5 - Related Data Allergies/Adverse Reactions: Allergies Allergy/AdvReac Type Severity Reaction Status Date / Time atorvastatin Allergy Cannot Verified 10/03/19 06:35 Remember propranolol Allergy Cannot Verified 10/03/19 06:35 Remember topiramate [From Topamax] Allergy Cannot Verified 10/03/19 06:35 Remember Home Medications: Home Meds Acetaminophen 1,000 mg PO BID 08/11/17 [History] Clopidogrel [Plavix] 75 mg PO DAILY 08/11/17 [History] Docusate Sodium [Colace] 100 mg PO QPM 08/11/17 [History] Furosemide 60 mg PO QAM 08/11/17 [History] Gabapentin [Neurontin] 300 mg PO TIDAC 08/11/17 [History] Insulin Aspart [Novolog Flexpen] 0 units SUBCUT TIDMEALS 08/11/17 [History] Isosorbide Mononitrate [Imdur] 60 mg PO DAILY 08/11/17 [History] Pantoprazole [ProTONIX] 20 mg PO QAM 08/11/17 [History] Primidone [Mysoline] 100 mg PO BEDTIME 08/11/17 [History] Sennosides/Docusate Sodium [Senna-S] 2 tab PO BID PRN 08/11/17 [History] Simvastatin [Zocor] 40 mg PO QPM 08/11/17 [History] Denosumab [Prolia] 1 ml SQ ASDIRECTED 09/02/18 [History] Donepezil [Aricept] 10 mg PO DAILY 09/02/18 [History] Insulin Glargine,Hum.Rec.Anlog [Toujeo Solostar] 24 unit SQ BID 09/02/18 [ History] Primidone 50 mg PO DAILY 09/02/18 [History] Propranolol [Inderal] 10 mg PO TIDAC 09/02/18 [History] amLODIPine [Norvasc] 2.5 mg PO DAILY 09/02/18 [History] Acetaminophen 650 mg PO Q6H PRN 10/03/19 [History] Aspirin [Ecotrin EC] 81 mg Q48H 10/03/19 [History] Calcium Carbonate/Vitamin D3 [Calcium 600-Vit D3 400 Tablet] 1 tab PO BID [History] Multivitamin [Multivitamins] 1 each PO DAILY 10/03/19 [History] Non-Formulary Medication [NF Drug] 1 applic TOP BID 10/03/19 [History] Non-Formulary Medication [NF Drug] 1 applic TOP DAILY PRN 10/03/19 [History] Past Medical History HEENT History: Reports: Impaired Vision Other HEENT History: wears eyeglasses, dentures Cardiovascular History: Reports: High Cholesterol, Hypertension, PVD Other Cardiovascular History: PVD, hypokalemia Respiratory History: Reports: Bronchitis, Recurrent Other Respiratory History: History from SNF and ER collection inquiry Gastrointestinal History: Reports: Chronic Constipation (Usually take stool softeners twice daily.), Colon Polyp, GERD, Hiatal Hernia Other Gastrointestinal History: History from SNF and ER collection inquiry Genitourinary History: Reports: Chronic Renal Insuffiency, Urinary Incontinence , UTI, Recurrent Other Genitourinary History: History from SNF and ER collection inquiry FLUME TENDER History: Reports: Other OB/BYN History: History from SNF and ER collection inquiry Musculoskeletal History: Reports: Osteoarthritis, Osteoporosis Neurological History: Reports: Alzheimers Disease, CVA, Head Trauma, Neuropathy , Peripheral (Secondary to diabetes. Restless leg syndrome.), Other (See Below) Other Neuro History: "Abnormal involuntary movments" Cognitive communication deficit; Essential tremor; History from SNF and ER collection inquiry; dysphagia oropharenyngeal phase following CVA Psychiatric History: Reports: Dementia, Other (See Below) Other Psychiatric History: cognitive communication deficit, vascular dementia Endocrine/Metabolic History: Reports: Diabetes, Type II (Controlled with insulin.) Other Endocrine/Metabolic History: History from SNF and ER collection inquiry Hematologic History: Reports: Other (See Below) Other Hematologic History: blood thinners, hyokalemia - Infectious Disease History Infectious Disease History: Reports: Chicken Pox, Measles, Mumps, Shingles Other Infectious Disease History: History from SNF and ER collection inquiry - Past Surgical History HEENT Surgical History: Reports: Cataract Surgery Cardiovascular Surgical History: Reports: Coronary Artery Bypass, Coronary Artery Stent GI Surgical History: Reports: Appendectomy, Colonoscopy, Other (See Below) Female Surgical History: Reports: Hysterectomy, Salpingo-Oophorectomy Musculoskeletal Surgical History: Reports: Carpal Tunnel Social & Family History - Family History Family Medical History: Noncontributory - Tobacco Use Smoking Status *Q: Unknown Ever Smoked - Caffeine Use Caffeine Use: Reports: Coffee - Living Situation & Occupation Living situation: Reports: , Extended Care Facility Occupation: Retired (Early resides in [facility].) H&P Review of Systems - Review of Systems: Review Of Systems: Comprehensive ROS is negative, except as noted in HPI. Exam - Exam Exam: See Below - Vital Signs Vital Signs: Last Vital Signs Temp 97.3 F 10/03/19 12:38 Pulse 76 10/03/19 12:38 Resp 16 10/03/19 12:38 BP 143/51 H 10/03/19 12:38 Pulse Ox 95 10/03/19 12:38 Weight: 156 lb 6.4 oz - Patient Data Lab Results Last 24 hrs: Laboratory Results - last 24 hr 10/03/19 10/03/19 10/03/19 Range/Units 06:40 06:40 06:40 WBC 9.81 (3.98-10.04) K/mm3 RBC 3.98 (3.98-5.22) M/mm3 Hgb 12.5 (11.2-15.7) gm/dl Hct 38.8 (34.1-44.9) % MCV 97.5 H (79.4-94.8) fl MCH 31.4 (25.6-32.2) pg MCHC 32.2 (32.2-35.5) g/dl RDW Std Deviation 49.3 H (36.4-46.3) fL Plt Count 262 (182-369) K/mm3 MPV 12.7 H (9.4-12.3) fl Neut % (Auto) 53.7 (34.0-71.1) % Lymph % (Auto) 28.3 (19.3-51.7) % Benson % (Auto) 13.8 H (4.7-12.5) % Eos % (Auto) 3.3 (0.7-5.8) Baso % (Auto) 0.7 (0.1-1.2) % Neut # (Auto) 5.27 (1.56-6.13) K/mm3 Lymph # (Auto) 2.78 (1.18-3.74) K/mm3 Benson # (Auto) 1.35 H (0.24-0.36) K/mm3 Eos # (Auto) 0.32 (0.04-0.36) K/mm3 Baso # (Auto) 0.07 (0.01-0.08) K/mm3 PT 11.2 (9.7-12.0) SECONDS INR 1.03 APTT 24 (22-31) SECONDS Sodium 140 (136-145) mEq/L Potassium 4.0 (3.5-5.1) mEq/L Chloride 103 (98-107) mEq/L Carbon Dioxide 28 (21-32) mEq/L Anion Gap 13.0 (5-15) BUN 22 H (7-18) mg/dL Creatinine 1.1 H (0.55-1.02) mg/dL Est Cr Clr Drug Dosing TNP Estimated GFR (MDRD) 47 (>60) mL/min BUN/Creatinine Ratio 20.0 H (14-18) Glucose 156 H (83-115) mg/dL Hemoglobin A1c (4.50-6.20) % Lactic Acid (0.4-2.0) mmol/L Calcium 8.9 (8.5-10.1) mg/dL Magnesium 2.2 (1.8-2.4) mg/dl Total Bilirubin 0.2 (0.2-1.0) mg/dL AST 22 (15-37) U/L ALT 22 (14-59) U/L Alkaline Phosphatase 57 (46-116) U/L Troponin I < 0.017 (0.00-0.056) ng/mL C-Reactive Protein 1.1 H* (<1.0) mg/dL NT-Pro-B Natriuret Pep (0-450) pg/mL Total Protein 7.8 (6.4-8.2) g/dl Albumin 3.0 L (3.4-5.0) g/dl Globulin 4.8 gm/dL Albumin/Globulin Ratio 0.6 L (1-2) Lipase 36 L (73-393) U/L TSH 3rd Generation (0.358-3.74) uIU/mL Urine Color (Yellow) Urine Appearance (Clear) Urine pH (5.0-8.0) Ur Specific [place] (1.005-1.030) Urine Protein (Negative) Urine Glucose (UA) (Negative) Urine Ketones (Negative) Urine Occult Blood (Negative) Urine Nitrite (Negative) Urine Bilirubin (Negative) Urine Urobilinogen (0.2-1.0) Ur Leukocyte Esterase (Negative) Urine RBC (0-5) /hpf Urine WBC (0-5) /hpf Urine WBC Clumps (NOT SEEN) /hpf Ur Epithelial Cells (0-5) /hpf Urine Bacteria (FEW) /hpf Hyaline Casts (0-5) /lpf Urine Mucus (FEW) /hpf 10/03/19 10/03/19 10/03/19 Range/Units 06:40 06:40 06:40 WBC (3.98-10.04) K/mm3 RBC (3.98-5.22) M/mm3 Hgb (11.2-15.7) gm/dl Hct (34.1-44.9) % MCV (79.4-94.8) fl MCH (25.6-32.2) pg MCHC (32.2-35.5) g/dl RDW Std Deviation (36.4-46.3) fL Plt Count (182-369) K/mm3 MPV (9.4-12.3) fl Neut % (Auto) (34.0-71.1) % Lymph % (Auto) (19.3-51.7) % Benson % (Auto) (4.7-12.5) % Eos % (Auto) (0.7-5.8) Baso % (Auto) (0.1-1.2) % Neut # (Auto) (1.56-6.13) K/mm3 Lymph # (Auto) (1.18-3.74) K/mm3 Benson # (Auto) (0.24-0.36) K/mm3 Eos # (Auto) (0.04-0.36) K/mm3 Baso # (Auto) (0.01-0.08) K/mm3 PT (9.7-12.0) SECONDS INR APTT (22-31) SECONDS Sodium (136-145) mEq/L Potassium (3.5-5.1) mEq/L Chloride (98-107) mEq/L Carbon Dioxide (21-32) mEq/L Anion Gap (5-15) BUN (7-18) mg/dL Creatinine (0.55-1.02) mg/dL Est Cr Clr Drug Dosing Estimated GFR (MDRD) (>60) mL/min BUN/Creatinine Ratio (14-18) Glucose (83-115) mg/dL Hemoglobin A1c 7.70 H (4.50-6.20) % Lactic Acid (0.4-2.0) mmol/L Calcium (8.5-10.1) mg/dL Magnesium (1.8-2.4) mg/dl Total Bilirubin (0.2-1.0) mg/dL AST (15-37) U/L ALT (14-59) U/L Alkaline Phosphatase (46-116) U/L Troponin I (0.00-0.056) ng/mL C-Reactive Protein (<1.0) mg/dL NT-Pro-B Natriuret Pep 1738 H (0-450) pg/mL Total Protein (6.4-8.2) g/dl Albumin (3.4-5.0) g/dl Globulin gm/dL Albumin/Globulin Ratio (1-2) Lipase (73-393) U/L TSH 3rd Generation 2.098 (0.358-3.74) uIU/mL Urine Color (Yellow) Urine Appearance (Clear) Urine pH (5.0-8.0) Ur Specific [place] (1.005-1.030) Urine Protein (Negative) Urine Glucose (UA) (Negative) Urine Ketones (Negative) Urine Occult Blood (Negative) Urine Nitrite (Negative) Urine Bilirubin (Negative) Urine Urobilinogen (0.2-1.0) Ur Leukocyte Esterase (Negative) Urine RBC (0-5) /hpf Urine WBC (0-5) /hpf Urine WBC Clumps (NOT SEEN) /hpf Ur Epithelial Cells (0-5) /hpf Urine Bacteria (FEW) /hpf Hyaline Casts (0-5) /lpf Urine Mucus (FEW) /hpf 10/03/19 10/03/19 Range/Units 07:23 08:10 WBC (3.98-10.04) K/mm3 RBC (3.98-5.22) M/mm3 Hgb (11.2-15.7) gm/dl Hct (34.1-44.9) % MCV (79.4-94.8) fl MCH (25.6-32.2) pg MCHC (32.2-35.5) g/dl RDW Std Deviation (36.4-46.3) fL Plt Count (182-369) K/mm3 MPV (9.4-12.3) fl Neut % (Auto) (34.0-71.1) % Lymph % (Auto) (19.3-51.7) % Benson % (Auto) (4.7-12.5) % Eos % (Auto) (0.7-5.8) Baso % (Auto) (0.1-1.2) % Neut # (Auto) (1.56-6.13) K/mm3 Lymph # (Auto) (1.18-3.74) K/mm3 Benson # (Auto) (0.24-0.36) K/mm3 Eos # (Auto) (0.04-0.36) K/mm3 Baso # (Auto) (0.01-0.08) K/mm3 PT (9.7-12.0) SECONDS INR APTT (22-31) SECONDS Sodium (136-145) mEq/L Potassium (3.5-5.1) mEq/L Chloride (98-107) mEq/L Carbon Dioxide (21-32) mEq/L Anion Gap (5-15) BUN (7-18) mg/dL Creatinine (0.55-1.02) mg/dL Est Cr Clr Drug Dosing Estimated GFR (MDRD) (>60) mL/min BUN/Creatinine Ratio (14-18) Glucose (83-115) mg/dL Hemoglobin A1c (4.50-6.20) % Lactic Acid 1.4 (0.4-2.0) mmol/L Calcium (8.5-10.1) mg/dL Magnesium (1.8-2.4) mg/dl Total Bilirubin (0.2-1.0) mg/dL AST (15-37) U/L ALT (14-59) U/L Alkaline Phosphatase (46-116) U/L Troponin I (0.00-0.056) ng/mL C-Reactive Protein (<1.0) mg/dL NT-Pro-B Natriuret Pep (0-450) pg/mL Total Protein (6.4-8.2) g/dl Albumin (3.4-5.0) g/dl Globulin gm/dL Albumin/Globulin Ratio (1-2) Lipase (73-393) U/L TSH 3rd Generation (0.358-3.74) uIU/mL Urine Color Light yellow (Yellow) Urine Appearance Clear (Clear) Urine pH 7.0 (5.0-8.0) Ur Specific [place] 1.020 (1.005-1.030) Urine Protein 1+ H (Negative) Urine Glucose (UA) Negative (Negative) Urine Ketones Negative (Negative) Urine Occult Blood Trace-intact H (Negative) Urine Nitrite Positive H (Negative) Urine Bilirubin Negative (Negative) Urine Urobilinogen 0.2 (0.2-1.0) Ur Leukocyte Esterase 1+ H (Negative) Urine RBC 0-5 (0-5) /hpf Urine WBC 10-20 H (0-5) /hpf Urine WBC Clumps Few (NOT SEEN) /hpf Ur Epithelial Cells 0-5 (0-5) /hpf Urine Bacteria Many H (FEW) /hpf Hyaline Casts 0-5 (0-5) /lpf Urine Mucus Not seen (FEW) /hpf Result Diagrams: 10/03/19 06:40 10/03/19 06:40 Imaging Impressions Last 24 hrs: Chest x-ray impression: Nothing acute suspected on portable chest x-ray. CT of the head: 1. Opacified left mastoid sinus as well as soft tissue material within the middle ear cavity on the left side. This finding is an interval change from previous exam and findings raise the possibility of left-sided otitis media and mastoiditis. 2. Senescent changes as noted felt to be stable from previous CT exam. Ultrasound of the abdomen: 1. Dilated common bile duct at 1.1 cm. Uncertain as to etiology. Gallbladder may also be somewhat dilated. No gallstones are seen. 2. Obscured pancreas. 3. No additional abnormalities identified. Sepsis Event Note - Evaluation Sepsis Screening Result: No Definite Risk - Focused Exam Vital Signs: Vital Signs Temp Temp Pulse Pulse Resp BP BP 10/03/19 12:38 97.3 F 76 16 143/51 H 10/03/19 11:54 77 20 135/87 10/03/19 10:37 77 16 103/60 10/03/19 06:36 98.5 F 58 L 18 Pulse Ox 10/03/19 12:38 95 10/03/19 11:54 94 L 10/03/19 10:37 96 10/03/19 06:36 Date Exam was Performed: 10/03/19 Time Exam was Performed: 15:43 Problem List Initiated/Reviewed/Updated: Yes Orders Last 24hrs: Active Orders 24 hr Category Date Time Status Admission Status [Patient Status] [ADT] Routine ADT 10/03/19 10:34 Active EKG Documentation Completion [RC] STAT Care 10/03/19 06:57 Active Oxygen Therapy [RC] ASDIRECTED Care 10/03/19 07:09 Active CULTURE BLOOD [BC] Stat Lab 10/03/19 07:50 Received CULTURE URINE [RM] Stat Lab 10/03/19 10:03 Ordered Sodium Chloride 0.9% [Normal Saline] 1,000 ml Med 10/03/19 07:45 Active IV ASDIRECTED Blood Culture x2 Reflex Set [OM.PC] Stat Oth 10/03/19 07:19 Ordered Medication Orders Sodium Chloride (Normal Saline) 1,000 mls @ 999 mls/hr IV ASDIRECTED BRIAN Last Admin: 10/03/19 07:35 Dose: 999 mls/hr Assessment/Plan Comment:: Assessment * Right upper quadrant pain: Unknown etiology * Borderline dilated common bile duct on ultrasound. * Normal LFTs * Left maxillary sinusitis with left otitis media and possibly mastoiditis * See CT scan report * Congestive heart failure likely HFpEF with hypoxemia * BNP 1700 * Requiring 2 L nasal cannula for oxygenation * Echocardiogram from 2013 showed left ventricular ejection fraction of 55 to 60%. Impaired relaxation (grade 1) pattern of LV diastolic filling. Trace to mild valvular disease. * Given Lasix 60 mg IV in the emergency room. On oral Lasix 60 mg daily * Symptomatic bradycardia * Given epinephrine in the emergency room * History of coronary artery disease -no chest pain * On low-dose propranolol 10 mg 3 times daily * Insulin-dependent type 2 diabetic * Asymptomatic bacteriuria * Normal white count, afebrile, no suprapubic pain, no back pain, no dysuria * Given Levaquin in the emergency room History of hypertension, peripheral vascular disease, GERD, recurrent UTI, arthritis, osteoporosis, CVA, vascular dementia, coronary artery disease with bypass surgery, and hyperlipidemia. Plan * Admit to medical floor on telemetry * Start Augmentin and her 75 mg twice daily for sinusitis. * Patient's bacteriuria is likely colonization and does not need to be treated. Continue to follow. * Hold propranolol secondary to bradycardia. * Increase Lantus by 25%. 18 units twice daily. * Low-dose sliding scale insulin. * Echocardiogram * Monitor SPO2 and titrate FiO2 to keep oxygenation above 90%. * Reevaluate fluid status in the morning. Patient is on Lasix 60 mg p.o. daily. I will hold that in case we want to give IV Lasix in the morning. * CODE STATUS: DNR/DNI * VTE prophylaxis with SCDs * Anticipated length of stay 2 to 3 days. - Mortality Measure Prognosis:: Poor
[2019-10-03] MEDS ORDERED: Docusate Sodium 100 MG Cap PO SCH (18:00)
[2019-10-03] MEDS ORDERED: Simvastatin 40 MG Tab PO SCH (18:00)
[2019-10-03] MEDS: Insulin Lispro 100 Units/ML 3 ML Vial SUBCUT SCH ×2 (18:22→21:53)
[2019-10-03] MEDS: Gabapentin 300 MG Cap PO SCH (18:37)
[2019-10-03] MEDS: Propranolol 10 MG Tab PO SCH (18:37)
[2019-10-03] MEDS ORDERED: Primidone 50 MG Tab PO SCH (21:00)
[2019-10-03] MEDS: Amoxicillin/Clavulanate K 875-125 MG Tab PO SCH (21:09)
[2019-10-03] MEDS: Insulin Glarg,Human.Rec.Analog 100 Unit/ML SUBCUT SCH (21:52)
[2019-10-04] MEDS: Gabapentin 300 MG Cap PO SCH ×2 (06:18→11:42)
[2019-10-04] MEDS: Insulin Lispro 100 Units/ML 3 ML Vial SUBCUT SCH ×2 (06:49→11:41)
[2019-10-04] MEDS ORDERED: Propranolol 10 MG Tab PO SCH (07:00)
[2019-10-04] MEDS ORDERED: Pantoprazole 40 MG Tab.CR PO SCH (08:00)
[2019-10-04] MEDS: Propranolol 10 MG Tab PO SCH ×2 (08:15→11:41)
[2019-10-04] MEDS: Amoxicillin/Clavulanate K 875-125 MG Tab PO SCH (08:18)
[2019-10-04] MEDS: Insulin Glarg,Human.Rec.Analog 100 Unit/ML SUBCUT SCH (08:19)
[2019-10-04] MEDS ORDERED: amLODIPine 2.5 MG Tab PO SCH (09:00)
[2019-10-04] MEDS ORDERED: Primidone 50 MG Tab PO SCH (09:00)
[2019-10-04] MEDS ORDERED: Aspirin 81 MG Tab.EC PO SCH (09:00)
[2019-10-04] MEDS ORDERED: Isosorbide Mononitrate 60 MG Tab.ER PO SCH (09:00)
[2019-10-04] MEDS ORDERED: Clopidogrel 75 MG Tab PO SCH (09:00)
[2019-10-04 11:42] VITALS: BP 152/98; PULSE 66
--- NOTE | 2019-10-04 12:13 | PCM.DCSUM1 ---
Discharge Summary - Hospital Course HPI Initial Comments: Patient is an 88-year -old female who came tot he ED complaining of RUQ pain in the ED. - Discharge Data Discharge Date: 10/04/19 Discharge Disposition: Home, Self-Care 01 Condition: Good - Referral to Home Health Primary Care Physician: Stewart Blevins MD - Discharge Diagnosis/Problem(s) (1) Bradycardia with 31-40 beats per minute SNOMED Code(s): 16715830 ICD Code: R00.1 - BRADYCARDIA, UNSPECIFIED Status: Resolved Current Visit : Yes (2) Constipation SNOMED Code(s): 99876789 ICD Code: K59.00 - CONSTIPATION, UNSPECIFIED Status: Acute Current Visit : Yes Qualifiers: Constipation type: slow transit constipation Qualified Code(s): K59.01 - Slow transit constipation (3) Type 2 diabetes mellitus SNOMED Code(s): 66347948 ICD Code: E11.9 - TYPE 2 DIABETES MELLITUS WITHOUT COMPLICATIONS Status: Chronic Priority: Medium Current Visit: Yes Qualifiers: Diabetes mellitus 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: with moth exterminator use Diabetes mellitus complication status: with unspecified complications (4) Abdominal discomfort SNOMED Code(s): 92957301 ICD Code: R10.9 - UNSPECIFIED ABDOMINAL PAIN Status: Resolved Current Visit: No (5) Excessive cerumen in both ear canals SNOMED Code(s): 325497933 ICD Code: H61.23 - IMPACTED CERUMEN, BILATERAL Status: Acute Current Visit: Yes - Patient Summary/Data Recommended Follow-up Testing/Procedures: Recommend Holter monitor as an outpatient if she were to have unexplained recurrent palpitations, syncopal episode, near syncopal episode or episodic dizziness She would also benefit from ear cleaning procedure to remove cerumen Recommend repeat echocardiogram. Hospital Course: She was taken to imaging where she had an episode of decreased responsiveness followed by bradycardia which was treated with epinephrine. Abdominal imaging was + for coprostasis. Patient with a positive UA however she adamantly denies urinary symptoms MRI head obtained after decreased responsiveness episode reported chronic findings with some mucosal thickening around sinus. BNP slightly elevated on admission, given lasix IV in ED. Admitted with home dose Patient recovered faster than anticipated. Able to tolerate diet advancement with symptom resolution sooner than expected. Patient stable, tolerating diet; ok to discharge back to long term. - Patient Instructions Diet: Usual Diet as Tolerated Activity: As Tolerated - Discharge Plan *PRESCRIPTION DRUG MONITORING PROGRAM REVIEWED*: Not Applicable *COPY OF PRESCRIPTION DRUG MONITORING REPORT IN PATIENT [place]: Not Applicable Home Medications: Home Meds Acetaminophen 1,000 mg PO BID 08/11/17 [History] Clopidogrel [Plavix] 75 mg PO DAILY 08/11/17 [History] Docusate Sodium [Colace] 100 mg PO QPM 08/11/17 [History] Furosemide 60 mg PO QAM 08/11/17 [History] Gabapentin [Neurontin] 300 mg PO TIDAC 08/11/17 [History] Insulin Aspart [Novolog Flexpen] 0 units SUBCUT TIDMEALS 08/11/17 [History] Isosorbide Mononitrate [Imdur] 60 mg PO DAILY 08/11/17 [History] Primidone [Mysoline] 100 mg PO BEDTIME 08/11/17 [History] Sennosides/Docusate Sodium [Senna-S] 2 tab PO BID PRN 08/11/17 [History] Denosumab [Prolia] 1 ml SQ ASDIRECTED 09/02/18 [History] Donepezil [Aricept] 10 mg PO DAILY 09/02/18 [History] Insulin Glargine,Hum.Rec.Anlog [Toujeo Solostar] 24 unit SQ BID 09/02/18 [ History] Primidone 50 mg PO DAILY 09/02/18 [History] Propranolol [Inderal] 10 mg PO TIDAC 09/02/18 [History] amLODIPine [Norvasc] 2.5 mg PO DAILY 09/02/18 [History] Acetaminophen 650 mg PO Q6H PRN 10/03/19 [History] Aspirin [Ecotrin EC] 81 mg Q48H 10/03/19 [History] Calcium Carbonate/Vitamin D3 [Calcium 600-Vit D3 400 Tablet] 1 tab PO BID [History] Multivitamin [Multivitamins] 1 each PO DAILY 10/03/19 [History] Non-Formulary Medication [NF Drug] 1 applic TOP BID 10/03/19 [History] Non-Formulary Medication [NF Drug] 1 applic TOP DAILY PRN 10/03/19 [History] Patient Handouts: Heart Failure Forms: ED Department Discharge Referrals: Stewart Blevins MD [Primary Care Provider] - - Discharge Summary/Plan Comment DC Time >30 min.: Yes - General Info Date of Service: 10/04/19 Functional Status: Reports: Pain Controlled, Tolerating Diet, Urinating. Denies : New Symptoms - Review of Systems General: Denies: Fever, Weakness, Fatigue, Malaise, Chills HEENT: Denies: Headaches, Post Nasal Drip, Sinus Congestion, Sore Throat, Rhinitis, Visual Changes Pulmonary: Denies: Shortness of Breath, Pleuritic Chest Pain, Cough, Sputum, Wheezing Cardiovascular: Denies: Chest Pain, Palpitations, Dyspnea on Exertion, Orthopnea , Edema, Lightheadedness Gastrointestinal: Denies: Abdominal Pain, Constipation, Decreased Appetite, Diarrhea, Nausea, Vomiting Genitourinary: Denies: Dysuria, Frequency, Burning, Pain, Urgency, Incontinence Musculoskeletal: Denies: Joint Pain, Joint Swelling Skin: Denies: Cyanosis, Jaundice, Mottled, Pallor, Diaphoresis Neurological: Denies: Confusion, Dizziness, Headache, Numbness - Patient Data Vitals - Most Recent: Last Vital Signs Temp 98.8 F 10/04/19 08:17 Pulse 66 10/04/19 11:41 Resp 20 10/04/19 11:36 BP 152/98 H 10/04/19 11:41 Pulse Ox 93 L 10/04/19 11:36 Weight - Most Recent: 69.9 kg - Exam General: Reports: Alert, Oriented, Cooperative, No Acute Distress HEENT: Reports: Pupils Equal, Pupils Reactive, EOMI, Mucous Membr. Moist/[place] Neck: Reports: Supple, Trachea Midline, No JVD, No Thyromegaly Lungs: Reports: Clear to Auscultation, Normal Respiratory Effort. Denies: Crackles, Rales, Wheezing Cardiovascular: Reports: Regular Rate, Regular Rhythm. Denies: Murmurs, Gallops , Rubs GI/Abdominal Exam: Normal Bowel Sounds, Soft, Non-Tender. No: Distended, Guarding, Rigid Extremities: Normal Inspection, Pedal Edema Neurological: Reports: No New Focal Deficit
== END 2019-10-04 14:05 | disposition home or self-care (01) | DRG 308 ==
LOC: JD.ED 06:29 → JD.MS 10:34 → OBSVTOIN 16:20 → JD.MS 16:43
PROVIDERS: ADMIT Family Medicine; ATTEND Family Medicine
DX: R00.1 Bradycardia, unspecified (principal); I50.43 Acute on chronic combined systolic (congestive) and diastolic (congestive) heart failure; I13.0 Hypertensive heart and chronic kidney disease with heart failure and stage 1 through stage 4 chronic kidney disease, or unspecified chronic kidney disease; G30.1 Alzheimer's disease with late onset; Z66 Do not resuscitate; F02.80 Dementia in other diseases classified elsewhere, unspecified severity, without behavioral disturbance, psychotic disturbance, mood disturbance, and anxiety; K59.01 Slow transit constipation; H61.23 Impacted cerumen, bilateral; E11.51 Type 2 diabetes mellitus with diabetic peripheral angiopathy without gangrene; M19.90 Unspecified osteoarthritis, unspecified site; I25.10 Atherosclerotic heart disease of native coronary artery without angina pectoris; E78.00 Pure hypercholesterolemia, unspecified; N18.9 Chronic kidney disease, unspecified; E11.22 Type 2 diabetes mellitus with diabetic chronic kidney disease; E78.5 Hyperlipidemia, unspecified; Z88.8 Allergy status to other drugs, medicaments and biological substances; Z79.4 Long term (current) use of insulin; Z79.82 Long term (current) use of aspirin; Z79.899 Other long term (current) drug therapy; Z98.49 Cataract extraction status, unspecified eye; Z90.710 Acquired absence of both cervix and uterus; Z90.49 Acquired absence of other specified parts of digestive tract
CPT/HCPCS: 36415; 70450; 70450-26; 71045; 71045-26; 74018; 74018-26; 76705; 76705-26; 80053; 81001; 82962; 83036; 83605; 83690; 83735; 83880; 84443; 84484; 85025; 85610; 85730; 86140; 87040; 87086; 87088; 87184; 87186; 87641; 93005; A9270-GY; J0171; J1170; J1815-GY; J1940; J1956; J2310; J2405; J2765; J7030